=== PATIENT | female | born 1945 | race Caucasian/White ===

== ENCOUNTER 2021-01-09 10:00 | Outpatient (REF) | payer MEDICARE, SELFPAY ==
[2021-01-09 12:01] LABS: Alanine Aminotransferase 23 U/L (0-31); Albumin Level 4.3 g/dL (3.5-5.0); Alkaline Phosphatase 89 U/L (39-117); Anion Gap 14 (12-20); Aspartate Amino Transferase 19 U/L (5-31); Bilirubin Total 0.8 mg/dL (0.0-1.0); Blood Urea Nitrogen 14 mg/dL (9-16); Calcium 9.5 mg/dL (8.4-10.2); Carbon Dioxide 29 mmol/L (22-29); Chloride 103 mmol/L (96-108); Cholesterol 210 mg/dL; Estimated Glomerular Filt Rate > 60; Glucose Fasting 157 mg/dL (60-99); HDL Cholesterol 93 mg/dL; LDL Cholesterol Calculated 98 mg/dl; Potassium 4.5 mmol/L (3.3-5.1); Sodium 141 mmol/L (135-145); Triglycerides 97 mg/dL
[2021-01-09 12:16] LABS: Estimated Average Glucose 151 mg/dL; Hemoglobin A1c % 6.9 %
== END 2021-01-09 10:01 | disposition home or self-care (01) ==
LOC: HO.HMGCLDS 10:00
PROVIDERS: PCP Internal Medicine; Visit Provider Internal Medicine
DX: E11.9 Type 2 diabetes mellitus without complications (principal); E66.9 Obesity, unspecified; I10 Essential (primary) hypertension
CPT/HCPCS: 36415; 80053; 80061; 83036

== ENCOUNTER 2021-05-06 11:38 | Outpatient (REF) | payer MEDICARE, SELFPAY ==
[2021-05-06 14:10] LABS: Estimated Average Glucose 143 mg/dL; Hemoglobin A1c % 6.6 %
[2021-05-06 14:24] LABS: Alanine Aminotransferase 17 U/L (0-31); Albumin Level 4.3 g/dL (3.5-5.0); Alkaline Phosphatase 84 U/L (39-117); Anion Gap 17 (12-20); Aspartate Amino Transferase 18 U/L (5-31); Bilirubin Total 0.8 mg/dL (0.0-1.0); Blood Urea Nitrogen 13 mg/dL (9-16); Calcium 9.8 mg/dL (8.4-10.2); Carbon Dioxide 22 mmol/L (22-29); Chloride 106 mmol/L (96-108); Cholesterol 202 mg/dL; Estimated Glomerular Filt Rate > 60; Glucose Fasting 137 mg/dL (60-99); HDL Cholesterol 90 mg/dL; LDL Cholesterol Calculated 91 mg/dl; Potassium 4.3 mmol/L (3.3-5.1); Sodium 141 mmol/L (135-145); Total Protein 6.9 g/dL (6.5-8.0); Triglycerides 109 mg/dL
[2021-05-06 15:09] LABS: Creatinine Urine 113.12 mg/dL; Microalbum/Creatinine Ratio Ur 121.9 ug/mg cr
== END 2021-05-06 11:39 | disposition home or self-care (01) ==
LOC: HO.HMGCLDS 11:38
PROVIDERS: PCP Internal Medicine; Visit Provider Internal Medicine
DX: E11.9 Type 2 diabetes mellitus without complications (principal); E66.9 Obesity, unspecified
CPT/HCPCS: 36415; 80053; 80061; 82043; 83036

== ENCOUNTER 2021-06-06 08:38 | Outpatient (REF) | payer MEDICARE, SELFPAY ==
[2021-06-06 11:52] LABS: Glucose Urine UA NEG (NEG); Leukocyte Esterase Urine TRACE (NEG); Nitrite Urine NEG (NEG); PH 5.5 (5.0-8.0); Specific Gravity - Urine 1.015 (1.005-1.025); UACC Culture Trigger YES; Urine Blood 2+ (NEG); Urine Ketones NEG (NEG); Urine Protein TRACE MG/DL (NEG-TRACE)
[2021-06-06 12:03] LABS: Appearance Urine CLEAR; Color Urine YELLOW
[2021-06-06 12:32] LABS: Calcium Oxalate Crystals Urine TRACE /LPF; Renal Epithelial Cells Urine 1+ /LPF
== END 2021-06-06 08:39 | disposition home or self-care (01) ==
LOC: HO.HMGCLDS 08:38
PROVIDERS: PCP Internal Medicine; Visit Provider Internal Medicine
DX: R31.9 Hematuria, unspecified (principal)
CPT/HCPCS: 81001; 81003; 87086

== ENCOUNTER 2021-07-03 13:51 | Outpatient (REF) | payer MEDICARE, SELFPAY ==
--- NOTE | ~2021-07-03 | US_ITS ---
EXAMINATION: US RETROPERITONEAL COMPLETE (RENAL) CLINICAL INFORMATION: Hematuria without pain. COMPARISON: None TECHNIQUE: Real-time imaging of the kidneys and bladder. FINDINGS: RIGHT KIDNEY: 11.8 x 5.4 x 6.3 cm (SAG x AP x TRV). The kidney is normal in size, contour, and echogenicity. Renal cortical thickness is normal. There are a few punctate cortical echogenic foci the largest within the upper pole measuring 3 mm in diameter with the appearance of calculi. No hydronephrosis. LEFT KIDNEY: 10.9 x 4.7 x 4.3 cm (SAG x AP x TRV). The kidney is normal in size, contour, and echogenicity. Renal cortical thickness is normal. There is a staghorn calculus seen within the upper pole measuring approximately 2 cm x 1.7 cm x 2.0 cm in size. There is a simple appearing 3.2 x 3.7 x 5.0 cm midpole cyst. There is some caliectasis present.. BLADDER: Well distended and normal. A right ureteral jet was identified. No left ureteral jet was seen. There is a echogenic lesion about the left ureterovesical junction measuring 1.1 x 0.5 x 0.7 cm in size consistent with obstructing calculus. Prevoid bladder volume is 201 mL. Postvoid bladder volume is 17 mL. US/US retroperitoneal comp IMPRESSION: Bilateral nephrolithiasis with left staghorn calculus. Obstructing left ureteral vesicle junction calculus with mild caliectasis. Left renal cyst..
== END 2021-07-03 13:52 | disposition home or self-care (01) ==
LOC: HO.HMGCX 13:51
PROVIDERS: PCP Internal Medicine; Visit Provider Internal Medicine
DX: R31.9 Hematuria, unspecified (principal)
CPT/HCPCS: 76770

== ENCOUNTER 2021-07-18 12:35 | Outpatient (REF) | payer MEDICARE, SELFPAY ==
[2021-07-18 16:13] LABS: Urine Cytology See Pathology rpt
== END 2021-07-18 12:36 | disposition home or self-care (01) ==
LOC: HO.LNP 12:35
PROVIDERS: PCP Internal Medicine
DX: R31.9 Hematuria, unspecified (principal)
CPT/HCPCS: 88112; 99202

== ENCOUNTER 2021-07-24 14:05 | Outpatient (REF) | payer MEDICARE, SELFPAY ==
[2021-07-24 16:55] LABS: Blood Urea Nitrogen 11 mg/dL (9-16); Estimated Glomerular Filt Rate > 60
== END 2021-07-24 14:06 | disposition home or self-care (01) ==
LOC: HO.HMGCLDS 14:05
PROVIDERS: PCP Internal Medicine; Visit Provider Internal Medicine
DX: N85.8 Other specified noninflammatory disorders of uterus (principal)
CPT/HCPCS: 36415; 82565; 84520

== ENCOUNTER 2021-08-02 13:34 | Outpatient (REF) | payer MEDICARE, SELFPAY ==
--- NOTE | ~2021-08-02 | MR_ITS ---
EXAMINATION: MRI PELVIS WITH AND WITHOUT CONTRAST CLINICAL INFORMATION: Other specified noninflammatory disorders of the uterus. According to the patient, uterine bleeding starting in April. COMPARISON: Ultrasound 07/03/2021 TECHNIQUE: Multiple routine MRI sequences through the pelvis were obtained on a high-field 1.5 Trisha MRI before and after the uneventful administration of 10 mL of Gadavist gadolinium-based IV contrast. FINDINGS: UTERUS: Anteverted uterus has a normal configuration and measures 12 x 6.8 x 9.4 cm ([id number] x anterior-posterior x transverse). Normal-appearing endometrium is not seen. The uterus is essentially replaced by heterogeneous cystic and solid, enhancing central mass that expands the uterus, measures 9.3 x 6 x 8.6 cm extending from the fundus to the internal cervical loss. In addition, there are a few well-circumscribed dark T2 structures in the periphery of the uterus consistent with leiomyomata, for example a 1.4 cm suspected myoma at the posterior uterine fundus series 5 image 14/26 and a 7 mm myoma of the left posterior lower uterine segment. CERVIX: Incidentally noted nabothian cysts. VAGINA: Normal; no mass seen. RIGHT OVARY: The right ovary measures 2.7 x 1.8 x 2.0 cm. There are several T2 bright simple appearing cysts in the right ovary the largest measuring 1.4 cm, likely a benign finding that requires no imaging follow-up. LEFT OVARY: The normal-appearing left ovary measures 1.2 x 0.7 x 1.1 cm. No left adnexal mass KIDNEYS: 2 normally positioned kidneys are seen. There is atrophy of the left kidney with a 4 cm T2 bright structure that presumably represents the left mid renal cyst seen on prior ultrasound. Additional smaller bilateral renal cortical cysts are present. BLADDER: Urinary bladder normal. PELVIC FREE FLUID: No free fluid or ascites. LYMPH NODES: No pathologically enlarged lymph nodes. OSSEOUS STRUCTURES: No acute or suspicious osseous abnormalities. There is diverticulosis of the sigmoid colon without evidence of colitis or diverticulitis. Small bowel is nondilated. MR/MR pelvis wo/w con IMPRESSION: There is an abnormal appearance to the uterus concerning for endometrial malignancy in this patient with vaginal bleeding. Recommend gynecologic oncology consultation and endometrial biopsy. The report will be called to the ordering clinician by a [facility].
== END 2021-08-02 13:35 | disposition home or self-care (01) ==
LOC: HO.MRI 13:34
PROVIDERS: Visit Provider Internal Medicine
DX: N85.8 Other specified noninflammatory disorders of uterus (principal)
CPT/HCPCS: 72197; A9585

== ENCOUNTER 2021-08-05 13:15 | Outpatient (REF) | payer MEDICARE, SELFPAY ==
--- NOTE | ~2021-08-05 | CT_ITS ---
EXAMINATION: CT ABDOMEN AND PELVIS WITHOUT CONTRAST CLINICAL INFORMATION: Renal stone COMPARISON: Previous renal and bladder ultrasound June 2021 and pelvic MRI 08/02/2021 TECHNIQUE: Multidetector volumetric imaging was performed from the superior aspect of the liver through the pubic symphysis. Sagittal and coronal reformatted images were obtained on the technologist's workstation. This CT examination was performed using dose optimization techniques as appropriate, variously including the following: *Automated exposure control *Adjustment of mA and/or kV according to patient size (this includes techniques or standardized protocols for targeted exams where dose is matched to indication/reason for exam; i.e. extremities or head) *Use of iterative reconstruction technique DLP: 735 mGy-cm FINDINGS: LUNG BASES: There is 1.2 cm heterogeneous right lower lobe nodule. This has a 4 mm solid component, axial image 47 series 4.. LIVER, GALLBLADDER, AND BILIARY TREE: The liver is normal in size, shape, and attenuation. No focal hepatic lesion or biliary ductal dilatation is present. The gallbladder is unremarkable with no evidence of radiopaque gallstones, gallbladder wall thickening, or obvious pericholecystic inflammatory changes. PANCREAS: Unremarkable. SPLEEN: Unremarkable. ADRENAL GLANDS: Unremarkable. KIDNEYS AND URETERS: The left kidney is smaller than the right and there is left renal cortical thinning. There is a large 1 x 1.5 cm stone in the upper pole of the left kidney. There is mild left upper pole calyceal dilatation. There is question of a dilated left renal pelvis versus peripelvic cyst measuring 4 cm. The left ureter does not appear dilated. The left UVJ stone is no longer seen. The right kidney is normal appearing. BLADDER: Unremarkable. The left UVJ stone is no longer seen. GASTROINTESTINAL TRACT: There is diverticulosis of the colon. Small and large bowel is otherwise unremarkable. There is a small posterior fundal gastric diverticulum. ABDOMINAL WALL: There is a small umbilical hernia containing fat. LYMPH NODES: There are small retroperitoneal lymph nodes in the abdomen. No enlarged lymph nodes are seen. There is no ascites. VASCULAR: There is evidence of atherosclerotic disease. No aneurysm is seen. PELVIC VISCERA: Uterus is enlarged and heterogeneous appearing with multiple cystic areas. Appearance is again concerning for possible malignancy. The endometrium is not well-defined. The ovaries are unremarkable. OSSEOUS STRUCTURES: There are degenerative changes of the spine. There are degenerative changes at the hip joints, left greater than right. CT/CT abdomen pelvis wo con IMPRESSION: 1 x 1.5 cm stone in the upper pole of the left kidney. Question left hydronephrosis versus peripelvic cyst. The left ureter does not appear dilated. Left UVJ stone is no longer seen. Enlarged heterogeneous appearing uterus with multiple cystic areas. Appearance is again concerning for neoplasm. Diverticulosis of the colon. 1.2 cm heterogeneous right lower lobe nodule. Follow-up chest CT scan should be considered.
== END 2021-08-05 13:16 | disposition home or self-care (01) ==
LOC: HO.CT 13:15
PROVIDERS: PCP Internal Medicine
DX: N20.0 Calculus of kidney (principal)
CPT/HCPCS: 74176

== ENCOUNTER 2021-08-19 10:02 | Outpatient (REF) | payer MEDICARE, SELFPAY ==
[2021-08-19 11:35] LABS: Estimated Average Glucose 137 mg/dL; Hemoglobin A1c % 6.4 %
[2021-08-19 11:54] LABS: Alanine Aminotransferase 16 U/L (0-31); Albumin Level 4.1 g/dL (3.5-5.0); Alkaline Phosphatase 80 U/L (39-117); Anion Gap 16 (12-20); Aspartate Amino Transferase 16 U/L (5-31); Bilirubin Total 0.8 mg/dL (0.0-1.0); Blood Urea Nitrogen 13 mg/dL (9-16); Calcium 9.7 mg/dL (8.4-10.2); Carbon Dioxide 26 mmol/L (22-29); Chloride 105 mmol/L (96-108); Cholesterol 200 mg/dL; Estimated Glomerular Filt Rate > 60; Glucose Fasting 139 mg/dL (60-99); HDL Cholesterol 90 mg/dL; LDL Cholesterol Calculated 89 mg/dl; Potassium 4.7 mmol/L (3.3-5.1); Sodium 142 mmol/L (135-145); Total Protein 6.6 g/dL (6.5-8.0); Triglycerides 105 mg/dL
[2021-08-19 12:05] LABS: Creatinine Urine 55.02 mg/dL; Microalbum/Creatinine Ratio Ur 281.7 ug/mg cr
== END 2021-08-19 10:03 | disposition home or self-care (01) ==
LOC: HO.HMGCLDS 10:02
PROVIDERS: PCP Internal Medicine; Visit Provider Internal Medicine
DX: E11.9 Type 2 diabetes mellitus without complications (principal); I10 Essential (primary) hypertension
CPT/HCPCS: 36415; 80053; 80061; 82043; 83036

== ENCOUNTER 2021-09-05 15:10 | Outpatient (REF) | payer MEDICARE, SELFPAY | END 2021-09-05 15:11 | disposition home or self-care (01) | LOC: HO.LAB 15:10 | PROVIDERS: PCP Internal Medicine; Visit Provider Obstetrics & Gynecology | DX: C54.1 Malignant neoplasm of endometrium (principal); N84.1 Polyp of cervix uteri | CPT/HCPCS: 57500; 58100; 88305; 88341; 88342; 88360; 99202 ==

== ENCOUNTER 2021-09-09 12:38 | Outpatient (REF) | payer MEDICARE, SELFPAY ==
--- NOTE | ~2021-09-09 | CT_ITS ---
EXAMINATION: CT CHEST WITHOUT CONTRAST CLINICAL INFORMATION: Solitary pulmonary nodule COMPARISON: None TECHNIQUE: Multidetector volumetric CT imaging of the chest was done. Axial MIP volume rendering provided. Sagittal and coronal reformatted images were obtained. This CT examination was performed using dose optimization techniques as appropriate, variously including the following: *Automated exposure control *Adjustment of mA and/or kV according to patient size (this includes techniques or standardized protocols for targeted exams where dose is matched to indication/reason for exam; i.e. extremities or head) *Use of iterative reconstruction technique DLP: 211 mGy-cm FINDINGS: CHAPLAIN RESIDENT: Unremarkable. LUNGS: There is a 5 mm nodule right lower lobe axial image 390/7. There is adjacent groundglass attenuation within the entire nodule measuring 1.2 cm. It is best visualized on axial image 400/7. No additional nodules seen. Minimal atelectasis scarring seen in the right middle lobe. MEDIASTINUM: The thyroid lobes are symmetrical in both the central trachea and the bronchi widely patent. The heart size and the great vessels are normal caliber. There are coronary artery calcifications present. No pericardial effusion seen. No abnormal mediastinal lymph nodes. There are coronary artery calcifications. PLEURA: There is no pleural effusion. No pleural mass or thickening. AXILLA: No lymphadenopathy. UPPER ABDOMEN: Visualized liver, spleen, pancreas and bilateral adrenal glands unremarkable. There is a 1.8 cm calcified stone left kidney pelvis. OSSEOUS STRUCTURES: No lytic or sclerotic process seen. There is mild spondylosis mid dorsal spine. CT/CT chest wo con IMPRESSION: Stable right lower lobe pulmonary nodule. 1.8 cm left renal pelvic calcified stone without hydronephrosis. Partially exophytic left renal stone.
== END 2021-09-09 12:39 | disposition home or self-care (01) ==
LOC: HO.CT 12:38
PROVIDERS: Visit Provider Internal Medicine
DX: R91.1 Solitary pulmonary nodule (principal)
CPT/HCPCS: 71250

== ENCOUNTER → 2021-09-11 11:47 | Outpatient (BNVA) | payer MEDICARE, SELFPAY | PROVIDERS: PCP Internal Medicine; Visit Provider Obstetrics & Gynecology ==

== ENCOUNTER → 2021-09-16 15:33 | Outpatient (BNVA) | payer MEDICARE, SELFPAY | PROVIDERS: PCP Internal Medicine; Visit Provider Obstetrics & Gynecology | DX: N95.9 Unspecified menopausal and perimenopausal disorder (principal); C64.9 Malignant neoplasm of unspecified kidney, except renal pelvis; E11.9 Type 2 diabetes mellitus without complications; I10 Essential (primary) hypertension; Z88.1 Allergy status to other antibiotic agents; Z88.0 Allergy status to penicillin; Z88.8 Allergy status to other drugs, medicaments and biological substances | CPT/HCPCS: Q3014 ==

== ENCOUNTER 2021-12-13 09:27 | Outpatient (REF) | payer MEDICARE, SELFPAY ==
[2021-12-13 11:38] LABS: Estimated Average Glucose 128 mg/dL; Hemoglobin A1c % 6.1 %
[2021-12-13 11:42] LABS: Hematocrit 42.4 % (37.0-47.0); Mean Corpuscular Hemoglobin 30.5 pg (27.0-33.0); Mean Corpuscular Volume 92.4 fL (80.0-98.0); Mean Platelet Volume 10.4 fL (9.4-12.3); Platelet Count 265 X10*3/uL (160-400); Red Blood Count 4.59 X10*6/uL (4.20-5.50); Red Cell Distribution Width 13.8 % (11.0-16.0); White Blood Count 6.3 X10*3/uL (4.8-10.8)
[2021-12-13 12:05] LABS: Alanine Aminotransferase 16 U/L (0-31); Alkaline Phosphatase 90 U/L (39-117); Anion Gap 14 (12-20); Aspartate Amino Transferase 18 U/L (5-31); Bilirubin Total 0.5 mg/dL (0.0-1.0); Blood Urea Nitrogen 11 mg/dL (9-16); Calcium 9.6 mg/dL (8.4-10.2); Carbon Dioxide 25 mmol/L (22-29); Chloride 109 mmol/L (96-108); Estimated Glomerular Filt Rate > 60; Glucose Fasting 114 mg/dL (60-99); Potassium 4.2 mmol/L (3.3-5.1); Sodium 144 mmol/L (135-145); Total Protein 6.7 g/dL (6.5-8.0)
== END 2021-12-13 09:28 | disposition home or self-care (01) ==
LOC: HO.HMGCLDS 09:27
PROVIDERS: PCP Internal Medicine; Visit Provider Internal Medicine
DX: E11.9 Type 2 diabetes mellitus without complications (principal); I10 Essential (primary) hypertension
CPT/HCPCS: 36415; 80053; 83036; 85027

== ENCOUNTER 2022-07-21 10:05 | Outpatient (REF) | payer MEDICARE, SELFPAY ==
[2022-07-21 11:59] LABS: Alanine Aminotransferase 16 U/L (0-31); Albumin Level 4.4 g/dL (3.5-5.0); Alkaline Phosphatase 97 U/L (39-117); Anion Gap 17 (12-20); Aspartate Amino Transferase 14 U/L (5-31); Bilirubin Total 0.7 mg/dL (0.0-1.0); Blood Urea Nitrogen 19 mg/dL (9-16); Calcium 9.5 mg/dL (8.4-10.2); Carbon Dioxide 25 mmol/L (22-29); Chloride 104 mmol/L (96-108); Cholesterol 200 mg/dL; Estimated Glomerular Filt Rate > 60; Glucose Fasting 166 mg/dL (60-99); HDL Cholesterol 85 mg/dL; LDL Cholesterol Calculated 95 mg/dl; Potassium 4.7 mmol/L (3.3-5.1); Sodium 141 mmol/L (135-145); Total Protein 7.2 g/dL (6.5-8.0); Triglycerides 100 mg/dL
[2022-07-21 12:12] LABS: Creatinine Urine 39.83 mg/dL; Microalbum/Creatinine Ratio Ur 311.3 ug/mg cr
[2022-07-21 12:24] LABS: Estimated Average Glucose 148 mg/dL; Hemoglobin A1c % 6.8 %
== END 2022-07-21 10:06 | disposition home or self-care (01) ==
LOC: HO.HMGCLDS 10:05
PROVIDERS: PCP Internal Medicine; Visit Provider Internal Medicine
DX: C64.9 Malignant neoplasm of unspecified kidney, except renal pelvis (principal); E11.9 Type 2 diabetes mellitus without complications; I10 Essential (primary) hypertension
CPT/HCPCS: 36415; 80053; 80061; 82043; 83036

== ENCOUNTER 2023-02-16 10:15 | Outpatient (REF) | payer MEDICARE, SELFPAY ==
[2023-02-16 12:31] LABS: Estimated Average Glucose 148 mg/dL; Hemoglobin A1c % 6.8 %
[2023-02-16 12:35] LABS: Alanine Aminotransferase 17 U/L (0-31); Albumin Level 4.2 g/dL (3.5-5.0); Alkaline Phosphatase 90 U/L (39-117); Anion Gap 14 (12-20); Aspartate Amino Transferase 16 U/L (5-31); Bilirubin Total 0.8 mg/dL (0.0-1.0); Blood Urea Nitrogen 15 mg/dL (9-16); Calcium 9.8 mg/dL (8.4-10.2); Carbon Dioxide 29 mmol/L (22-29); Chloride 105 mmol/L (96-108); Cholesterol 204 mg/dL; Estimated Glomerular Filt Rate > 60; Glucose Fasting 151 mg/dL (60-99); HDL Cholesterol 84 mg/dL; LDL Cholesterol Calculated 105 mg/dl; Potassium 4.9 mmol/L (3.3-5.1); Sodium 143 mmol/L (135-145); Total Protein 6.6 g/dL (6.5-8.0); Triglycerides 76 mg/dL
== END 2023-02-16 10:16 | disposition home or self-care (01) ==
LOC: HO.HMGCLDS 10:15
PROVIDERS: PCP Internal Medicine; Visit Provider Internal Medicine
DX: E11.9 Type 2 diabetes mellitus without complications (principal); I10 Essential (primary) hypertension; E66.9 Obesity, unspecified
CPT/HCPCS: 36415; 80053; 80061; 83036

== ENCOUNTER 2023-07-08 13:02 | Outpatient (REF) | payer MEDICARE, SELFPAY ==
[2023-07-08 15:59] LABS: MANUAL DIFF FLAG NO
[2023-07-08 16:11] LABS: Basophils Absolute Auto 0.1 X10*3/uL (0.0-0.2); Basophils Percent Auto 0.9 % (0-2); Eosinophils Absolute Auto 0.2 X10*3/uL (0.0-0.4); Eosinophils Percent Auto 2.8 % (0-4); Hemoglobin 14.9 g/dl (12.0-16.0); Imm Gran Abs Auto 0.03 X10*3/uL (0.00-0.03); Imm Gran Pct Auto 0.5 % (0.0-0.4); Lymphocytes Absolute Auto 1.7 X10*3/uL (1.2-4.9); Lymphocytes Percent Auto 26.9 % (20-40); Mean Corpuscular HGB Conc 33.9 g/dl (31.0-35.0); Mean Corpuscular Volume 91.7 fL (80.0-98.0); Mean Platelet Volume 10.9 fL (9.4-12.3); Monocytes Absolute Auto 0.4 X10*3/uL (0.1-1.2); Monocytes Percent Auto 6.6 % (2-11); Neutrophils Percent Auto 62.3 % (45-73); Platelet Count 260 X10*3/uL (160-400); Red Cell Distribution Width 12.9 % (11.0-16.0); White Blood Count 6.4 X10*3/uL (4.8-10.8)
[2023-07-08 16:16] LABS: Estimated Average Glucose 140 mg/dL; Hemoglobin A1c % 6.5 %
[2023-07-08 16:28] LABS: Alanine Aminotransferase 17 U/L (0-31); Albumin Level 4.1 g/dL (3.5-5.0); Alkaline Phosphatase 91 U/L (39-117); Anion Gap 14 (12-20); Aspartate Amino Transferase 16 U/L (5-31); Bilirubin Total 0.6 mg/dL (0.0-1.0); Blood Urea Nitrogen 12 mg/dL (9-16); Calcium 9.5 mg/dL (8.4-10.2); Carbon Dioxide 25 mmol/L (22-29); Chloride 107 mmol/L (96-108); Cholesterol 185 mg/dL; Estimated Glomerular Filt Rate > 60; Glucose Fasting 149 mg/dL (60-99); HDL Cholesterol 80 mg/dL; LDL Cholesterol Calculated 85 mg/dl; Sodium 142 mmol/L (135-145); Total Protein 7.1 g/dL (6.5-8.0); Triglycerides 101 mg/dL
[2023-07-08 16:37] LABS: TSH reflex Free T4 1.35 uIU/mL (0.32-4.0)
[2023-07-08 16:44] LABS: Creatinine Urine 105.07 mg/dL; Microalbum/Creatinine Ratio Ur 295.9 ug/mg cr
== END 2023-07-08 13:03 | disposition home or self-care (01) ==
LOC: HO.HMGCLDS 13:02
PROVIDERS: PCP Internal Medicine; Visit Provider Internal Medicine
DX: E11.9 Type 2 diabetes mellitus without complications (principal); I10 Essential (primary) hypertension; N20.0 Calculus of kidney
CPT/HCPCS: 36415; 80053; 80061; 82043; 83036; 84443; 85025

== ENCOUNTER 2023-07-15 07:55 | Outpatient (AMB) | payer MEDICARE, SELFPAY ==
--- NOTE | 2023-07-15 07:59 | MHC.PC.OV ---
Vital Signs 07/15/23 08:00 Height 5 ft 5 in Weight 236 lb BMI 39.3 BP 116/74 Blood Pressure Location Rt radial Position Sitting Pulse 92 Pulse Source Pulse Oximeter Pulse Oximetry (%) 98 Oxygen Delivery Method Room Air Intake Visit Reasons: PHY Intake Note: Pt is here today for PE. Allergies penicillin V Allergy (Unknown, Verified 07/15/23 08:02) unknown oxycodone Allergy (Verified 07/15/23 08:02) nausea dizziness lisinopril Adverse Reaction (Unknown, Verified 07/15/23 08:02) increased urination Medication List - Last Reconciled 07/15/23 by Kae Ravi MD amlodipine 10 mg PO DAILY blood sugar diagnostic one touch ultra 1 QD blood sugar diagnostic one touch ultra test strips QD #100, RF#3 flu vacc [id number](65yr up)-PF mL IM halobetasol propionate 0.05% 1 appl topical DAILY insulin glargine 16 units (0.16 mL) subcut BEDTIME metformin 1,000 mg PO BID miscellaneous medical supply 1 ea miscellaneous .QD olmesartan 5 mg PO DAILY pen needle, diabetic (BD Ultra-Fine Short Pen Needle) 1 ea topical DAILY 90 days Tobacco use date assessed: 07/15/23 Fall risk assessment: No Falls in past year Last assessed Fall Risk: 07/15/23 Dental Screening Dental Screen Date: 07/15/23 Did you have a dental visit in the last 12 months?: Yes Did you have a dental problem in the last 6 months where you did not have access to dental care?: No Was dental information given to patient?: Patient has dentist HPI PHY HPI Details Patient presents for physical. She has been exercising every day walking up 3 flights the stairs daily. [facility] Medical History Diabetes Eye exam, routine Hematuria HTN (hypertension) Lung nodule Nephrolithiasis Obese Uterine mass Surgical History History of ankle surgery Family History Father No problems noted. Mother HTN (hypertension) Mental health disorder Social History [facility] Alcohol intake: current Alcohol intake frequency: 0-2 drinks per day Alcohol type: wine Patient Tobacco Use Status: Former Tobacco user (24 years ago) e-Cigarette/Vaping Use: Never Used Second Hand Smoke Exposure: No service: No Current occupational status: retired Current occupational exposures/hazards: No Cognitive needs: No Hearing needs: No Vision needs: Yes Questionnaire PHQ-9 Over the last 2 weeks, how often have you been bothered by any of the following problems? 1. Little interest or pleasure in doing things: not at all 2. Feeling down, depressed, or hopeless: not at all 3. Trouble falling or staying asleep, or sleeping too much: not at all 4. Feeling tired or having little energy: not at all 5. Poor appetite or overeating: not at all 6. Feeling bad about yourself - or that you are a failure or have let yourself or your family down: not at all 7. Trouble concentrating on things, such as reading the newspaper or watching television: not at all 8. Moving or speaking so slowly that other people could have noticed. Or the opposite - being so fidgety or restless that you have been moving around a lot more than usual: not at all 9. Thoughts that you would be better off or of hurting yourself in some way: not at all Total score: 0 Depression Screening Interpretation: Negative Source: Developed by Drs. Sanford Mendoza, Bhumika Jacques, Vince Bartholomew and colleagues, with an educational nida from [employer]. Thrive Questionnaire Date Thrive assessed: 07/15/23 I am a: Patient What is your living situation today?: I have a steady place to live Within the past 12 months, did the food you bought not last and you didn't have the money to get more?: Never true Within the past 12 months, did you worry whether your food would run out before you got money to buy more?: Never true Do you have trouble paying for medicines?: No Do you have trouble getting transportation to medical appointments?: No Do you have trouble paying your heating and electricity bill?: No Do you have trouble taking care of your child, family member or friend?: No Do you have trouble with day-to-day activities such as bathing, preparing meals, shopping, managing finances, etc.?: No Are you currently unemployed and looking for a job?: No Are you interested in more education?: No Please select the resources that you would like help with: None Currently or been in a relationship where the following occur: no concerns reported AUDIT C Alcohol Use Questionnaire (AUDIT-C) 1. How often do you have a drink containing alcohol?: Monthly or less 2. How many drinks containing alcohol do you have on a typical day when you are drinking?: 1 or 2 3. How often do you have six or more drinks on one occasion?: Never Total Score: 1 NEDA-7 AMB Questionnaire NEDA-7 Date NEDA - 7 assessed: 07/15/23 Feeling nervous, anxious, or on edge: 0 = Not at all Not being able to stop or control worryin = Not at all Worrying too much about different things: 0 = Not at all Trouble relaxin = Not at all Being so restless that it is hard to sit still: 0 = Not at all Becoming easily annoyed or irritable: 0 = Not at all Feeling afraid as if something awful might happen: 0 = Not at all Total NEDA-7 score (0-4 normal; 5-9 mild; 10-14 moderate; 15-21 severe): 0 Source: Developed by Drs. Sanford Mendoza, Bhumika Jacques, Vince Bartholomew and colleagues, with an educational nida from [employer]. Review of Systems Const All systems reviewed & are unremarkable except as noted in HPI and below Reports no additional complaints Eyes Reports no additional complaints ENT Reports no additional complaints Card Reports no additional complaints Resp Reports no additional complaints GI Reports no additional complaints Reports no additional complaints Physical exam (Primary Care) Vital Signs: Last Vital Signs Pulse 92 07/15/23 08:00 BP 116/74 07/15/23 08:00 Pulse Ox 98 07/15/23 08:00 Oxygen Delivery Method Room Air 07/15/23 08:00 BMI result Body Mass Index 39.3 Tobacco/Smoking Status: Tobacco use Status Tobacco use date assessed 07/15/23 07/15/23 08:06 Patient Tobacco Use Status Former Tobacco user (24 07/15/23 08:06 years ago) e-Cigarette/Vaping Use Never Used 07/15/23 08:06 PHQ-9: PHQ-9 Score PHQ-9: Total score 0 07/15/23 08:41 Depression Screening Interpretation: Negative Thrive Assessment: Date of Thrive Assessment Date Thrive assessed 07/15/23 07/15/23 08:06 Currently or been in a relationship where the following occur: no concerns reported Const General: no acute distress HENMT Head: Yes normal to inspection Ears: hearing grossly normal bilaterally Face and sinus: Yes normal facial exam Eyes General: appearance normal, both eyes and all related structures Neck Neck: Yes no lymphadenopathy and Yes supple Resp Effort & Inspection: normal respiratory effort Auscultation: clear to auscultation bilaterally Cardio Rhythm: regular rhythm Heart sounds: S1 normal heart sound present and S2 normal heart sound present GI Inspection: Yes normal to inspection Palpation (GI): Soft to palpation Percussion: Yes normal to percussion Auscultation: normal bowel sounds Extrem Other: Diabetic foot exam skin is intact, monofilament and vibration sensation intact bilaterally. There is small callus on the right plantar aspect of 1st toe General: Yes no clubbing, cyanosis or edema Immunizations pneumoc 20-shaq conj-dip cr(PF) Performing Provider: Kae Ravi MD Administered by: SIGIFREDO Lopez on 07/15/23 08:48 Dose Route Admin Location Lot Number Expiration Date NDC Vice President Of Marketing 0.5 mL IM Left Deltoid [id number] 09/22/24 [id number] [employer] VIS Given Date VIS Provided VIS Publication Date 07/15/23 Single Vaccine 21 Eligibility Eligibility Date Funding Source Not [facility] Eligible 07/15/23 Private Assessment and Plan Assessment & Plan (1) Diabetes: Code(s): E11.9 - Type 2 diabetes mellitus without complications Plan: A1c is 6.5, continue current treatment increase physical activity weight loss discussed with the patient follow-up in 6 months with a fasting labs before (2) HTN (hypertension): Code(s): I10 - Essential (primary) hypertension Plan: Continue current medications (3) Annual physical exam: Code(s): Z00.00 - Encounter for general adult medical examination without abnormal findings Plan: Well-balanced diet and regular physical activity weight loss discussed with the patient. she will return in 6 months with a fasting labs before Orders: Orders Comprehensive Sweetser. Panel Fast 6 Months E11.9 - Type 2 diabetes mellitus without complications, I10 - Essential (primary) hypertension Lipid Panel 6 Months E11.9 - Type 2 diabetes mellitus without complications, I10 - Essential (primary) hypertension Complete Blood Count Auto Diff 6 Months E11.9 - Type 2 diabetes mellitus without complications, I10 - Essential (primary) hypertension Hemoglobin A1c 6 Months E11.9 - Type 2 diabetes mellitus without complications, I10 - Essential (primary) hypertension Microalbumin, Random (w Creat) 6 Months E11.9 - Type 2 diabetes mellitus without complications, I10 - Essential (primary) hypertension Pneumococcal 20 Immunization Today Z23 - Encounter for immunization Medications: New miscellaneous medical supply diabetic shoes 1 ea miscellaneous .qd 1 ea 0RF E11.9 - Type 2 diabetes mellitus without complications, L84 - Corns and callosities Refilled miscellaneous medical supply diabetic shoes Dx: IDDM, neuropathy 1 ea miscellaneous .QD 1 ea 0RF Coding Level of Care Code Est Pt Prev Care >65y(90227) Diagnoses Diabetes E11.9 HTN (hypertension) I10 Annual physical exam Z00.00
[2023-07-15 08:00] VITALS: BP 116/74; PULSE 92; O2SAT 98; BMI 39.3
== END 2023-07-15 08:59 | disposition home or self-care (01) ==
PROVIDERS: Visit Provider Internal Medicine
DX: Z00.00 Encounter for general adult medical examination without abnormal findings (principal); E11.9 Type 2 diabetes mellitus without complications; I10 Essential (primary) hypertension; Z23 Encounter for immunization
CPT/HCPCS: 90471; 90677; 99397

== ENCOUNTER → 2024-01-13 09:34 | Outpatient (AMB) | payer MEDICARE, SELFPAY ==
[2024-01-13 09:40] VITALS: BP 136/68; PULSE 102; O2SAT 97; BMI 38.3
--- NOTE | 2024-01-13 09:40 | A.OFFPC_ITS ---
Vital Signs 01/13/24 09:40 Height 5 ft 5 in Weight 230 lb BMI 38.3 BP 136/68 Blood Pressure Location Lt brachial Position Sitting Pulse 102 H Pulse Source Pulse Oximeter Pulse Oximetry (%) 97 Oxygen Delivery Method Room Air Intake Visit Reasons: 6 month follow up Intake Note: Pt is here today for 6 months follow up visit. Allergies penicillin V Allergy (Unknown, Verified 01/13/24 09:41) unknown oxycodone Allergy (Verified 01/13/24 09:41) nausea dizziness alendronate sodium [From Fosamax] Adverse Reaction (Intermediate, Verified 0 01/13/24 09:52) Weakness, jelly legs lisinopril Adverse Reaction (Unknown, Verified 01/13/24 09:41) increased urination Medication List - Last Reconciled 01/13/24 by Kae Ravi MD amlodipine 10 mg PO DAILY blood sugar diagnostic ([employer] Ultra Test strips) Test blood sugar once a day flu vacc to2520-98(65yr up)-PF mL IM halobetasol propionate 0.05% 1 appl topical DAILY insulin glargine 16 units (0.16 mL) subcut BEDTIME metformin 1,000 mg PO BID miscellaneous medical supply 1 ea miscellaneous .qd miscellaneous medical supply 1 ea miscellaneous .QD olmesartan 5 mg PO DAILY pen needle, diabetic (BD Ultra-Fine Short Pen Needle) 1 ea topical DAILY 90 days Tobacco use date assessed: 07/15/23 Fall risk assessment: No Falls in past year Last assessed Fall Risk: 01/13/24 Dental Screening Dental Screen Date: 01/13/24 Did you have a dental visit in the last 12 months?: Yes Did you have a dental problem in the last 6 months where you did not have access to dental care?: No Was dental information given to patient?: Patient has dentist HPI 6 month follow up HPI Details Pt presents for f/u DM 2 and hypertension, stable on meds. Patient reports fasting blood glucose between 95-120. Patient has been exercising regularly [facility] Medical History (Updated 01/13/24 @ 10:36 by Kae Ravi MD) Nephrolithiasis Lung nodule Hematuria Obese Eye exam, routine Diabetes HTN (hypertension) Surgical History History of ankle surgery Family History Father No problems noted. Mother HTN (hypertension) Mental health disorder Social History Housing: Condominium Alcohol intake: current Alcohol intake frequency: 0-2 drinks per day Alcohol type: wine Patient Tobacco Use Status: Former Tobacco user (24 years ago) e-Cigarette/Vaping Use: Never Used Second Hand Smoke Exposure: No service: No Current occupational status: retired Current occupational exposures/hazards: No Cognitive needs: No Hearing needs: No Vision needs: Yes Questionnaire PHQ-9 Over the last 2 weeks, how often have you been bothered by any of the following problems? 1. Little interest or pleasure in doing things: not at all 2. Feeling down, depressed, or hopeless: not at all 3. Trouble falling or staying asleep, or sleeping too much: not at all 4. Feeling tired or having little energy: not at all 5. Poor appetite or overeating: not at all 6. Feeling bad about yourself - or that you are a failure or have let yourself or your family down: not at all 7. Trouble concentrating on things, such as reading the newspaper or watching television: not at all 8. Moving or speaking so slowly that other people could have noticed. Or the opposite - being so fidgety or restless that you have been moving around a lot more than usual: not at all 9. Thoughts that you would be better off or of hurting yourself in some way: not at all Total score: 0 Depression Screening Interpretation: Negative Depression Screening Done: Yes Source: Developed by Drs. Sanford Mendoza, Bhumika Jacques, Vince Bartholomew and colleagues, with an educational nida from [employer]. Thrive Questionnaire Date Thrive assessed: 01/13/24 I am a: Patient What is your living situation today?: I have a steady place to live Within the past 12 months, did the food you bought not last and you didn't have the money to get more?: Never true Within the past 12 months, did you worry whether your food would run out before you got money to buy more?: Never true Do you have trouble paying for medicines?: No Do you have trouble getting transportation to medical appointments?: No Do you have trouble paying your heating and electricity bill?: No Do you have trouble taking care of your child, family member or friend?: No Do you have trouble with day-to-day activities such as bathing, preparing meals, shopping, managing finances, etc.?: No Are you currently unemployed and looking for a job?: No Are you interested in more education?: No Please select the resources that you would like help with: None Currently or been in a relationship where the following occur: no concerns reported THRIVE Score: 0 AUDIT C Alcohol Use Questionnaire (AUDIT-C) 1. How often do you have a drink containing alcohol?: 2-4 times a month 2. How many drinks containing alcohol do you have on a typical day when you are drinking?: 1 or 2 3. How often do you have six or more drinks on one occasion?: Never Total Score: 2 NEDA-7 AMB Questionnaire NEDA-7 Date NEDA - 7 assessed: 01/13/24 Feeling nervous, anxious, or on edge: 0 = Not at all Not being able to stop or control worryin = Not at all Worrying too much about different things: 0 = Not at all Trouble relaxin = Not at all Being so restless that it is hard to sit still: 0 = Not at all Becoming easily annoyed or irritable: 0 = Not at all Feeling afraid as if something awful might happen: 0 = Not at all Total NEDA-7 score (0-4 normal; 5-9 mild; 10-14 moderate; 15-21 severe): 0 Source: Developed by Drs. Sanford Mendoza, Bhumika Jacques, Vince Bartholomew and colleagues, with an educational nida from [employer]. Review of Systems Const All systems reviewed & are unremarkable except as noted in HPI and below Reports no additional complaints Eyes Reports no additional complaints ENT Reports no additional complaints Card Reports no additional complaints Resp Reports no additional complaints GI Reports no additional complaints Reports no additional complaints Physical exam (Primary Care) Vital Signs: Last Vital Signs Pulse 102 H 01/13/24 09:40 BP 136/68 01/13/24 09:40 Pulse Ox 97 01/13/24 09:40 Oxygen Delivery Method Room Air 01/13/24 09:40 BMI result Body Mass Index 38.3 Tobacco/Smoking Status: Tobacco use Status Tobacco use date assessed 07/15/23 01/13/24 09:41 Patient Tobacco Use Status Former Tobacco user (01/13/24 09:41 years ago) e-Cigarette/Vaping Use Never Used 01/13/24 09:41 PHQ-9: PHQ-9 Score PHQ-9: Total score 0 01/13/24 09:56 Depression Screening Interpretation: Negative Thrive Assessment: Date of Thrive Assessment Date Thrive assessed 01/13/24 01/13/24 09:56 Currently or been in a relationship where the following occur: no concerns reported Const General: no acute distress HENMT Head: Yes normal to inspection Face and sinus: Yes normal facial exam Eyes General: appearance normal, both eyes and all related structures Neck Neck: Yes supple Resp Effort & Inspection: normal respiratory effort Auscultation: clear to auscultation bilaterally Cardio Rhythm: regular rhythm Heart sounds: S1 normal heart sound present and S2 normal heart sound present GI Inspection: Yes normal to inspection Palpation (GI): Soft to palpation Percussion: Yes normal to percussion Auscultation: normal bowel sounds Assessment and Plan Assessment & Plan (1) Adenosarcoma: Comment: uterine ca, 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 F/U [facility] Code(s): C64.9 - Malignant neoplasm of unspecified kidney, except renal pelvis Plan: PATIENT FOLLOW-UP WITH [facility] D[facility]ENS[facility] SPECIFICATION INSPECTOR ANNUALLY (2) Diabetes: Comment: A1C 6.5 07/15 Code(s): E11.9 - Type 2 diabetes mellitus without complications Plan: ADA diet increase physical activity weight loss discussed with the patient she will return in 1 month with a fasting labs before including A1c (3) Obese: Code(s): E66.9 - Obesity, unspecified Plan: Weight loss discussed with the patient (4) HTN (hypertension): Code(s): I10 - Essential (primary) hypertension Plan: Continue current medications low-sodium diet increase physical activity discussed. Orders: Orders Comprehensive [place]. Panel Fast 1 Month E11.9 - Type 2 diabetes mellitus without complications, I10 - Essential (primary) hypertension Lipid Panel 1 Month E11.9 - Type 2 diabetes mellitus without complications, I10 - Essential (primary) hypertension UA w Microscopic 1 Month E11.9 - Type 2 diabetes mellitus without complications, I10 - Essential (primary) hypertension Hemoglobin A1c 1 Month E11.9 - Type 2 diabetes mellitus without complications, I 10 - Essential (primary) hypertension Microalbumin, Random (w Creat) 1 Month E11.9 - Type 2 diabetes mellitus without complications, I10 - Essential (primary) hypertension Coding Level of Care Code Est Pt Level 4 (40172) Diagnoses Adenosarcoma C64.9 Diabetes E11.9 Obese E66.9 HTN (hypertension) I10
== END ==
PROVIDERS: PCP Internal Medicine; Visit Provider Internal Medicine
DX: E11.9 Type 2 diabetes mellitus without complications (principal); C64.9 Malignant neoplasm of unspecified kidney, except renal pelvis; Z68.38 Body mass index [BMI] 38.0-38.9, adult; E66.9 Obesity, unspecified; I10 Essential (primary) hypertension
CPT/HCPCS: 99214

== ENCOUNTER 2024-07-13 09:51 | Outpatient (REF) | payer MEDICARE, SELFPAY ==
[2024-07-13 13:35] LABS: Appearance Urine Cloudy; Color Urine Yellow; Glucose Urine UA Negative (Negative); Leukocyte Esterase Urine Moderate (2+) (Negative); Nitrite Urine Negative (Negative); PH 5.5 (5.0-9.0); Specific Gravity - Urine 1.015 (1.005-1.025); UMIC TRIGGER UA YES; Urine Blood Negative (Negative); Urine Ketones Negative (Negative); Urine Protein Trace mg/dL (Neg-Trace)
[2024-07-13 13:41] LABS: Estimated Average Glucose 154 mg/dL
[2024-07-13 13:56] LABS: Alanine Aminotransferase 16 U/L (0-31); Albumin Level 4.1 g/dL (3.5-5.0); Alkaline Phosphatase 88 U/L (39-117); Anion Gap 12 (12-20); Aspartate Amino Transferase 15 U/L (5-31); Bilirubin Total 0.6 mg/dL (0.0-1.0); Blood Urea Nitrogen 17 mg/dL (9-16); Carbon Dioxide 28 mmol/L (22-29); Chloride 107 mmol/L (96-108); Cholesterol 183 mg/dL (<200); Estimated Glomerular Filt Rate > 60; Glucose Fasting 150 mg/dL (60-99); HDL Cholesterol 77 mg/dL (>40); LDL Cholesterol Calculated 89 mg/dL (<100); Potassium 4.8 mmol/L (3.3-5.1); Sodium 142 mmol/L (135-145); Total Protein 6.9 g/dL (6.5-8.0); Triglycerides 88 mg/dL (<150)
[2024-07-13 14:07] LABS: Bacteria Urine None Seen (None Seen); Calcium Oxalate Crystals Urine Present; Hyaline Casts Urine 0-2 /LPF (0-2); RBC Urine 0-2 /HPF (0-2); WBC Urine 21-50 /HPF (0-5)
[2024-07-13 14:33] LABS: Creatinine Urine 64.55 mg/dL; Microalbum/Creatinine Ratio Ur 167.3 ug/mg cr (<30)
== END 2024-07-13 09:52 | disposition home or self-care (01) ==
LOC: HO.HMGCLDS 09:51
PROVIDERS: PCP Internal Medicine; Visit Provider Internal Medicine
DX: I10 Essential (primary) hypertension (principal); E11.9 Type 2 diabetes mellitus without complications
CPT/HCPCS: 36415; 80053; 80061; 81001; 82043; 82570; 83036

== ENCOUNTER 2024-07-18 08:02 | Outpatient (AMB) | payer MEDICARE, SELFPAY ==
[2024-07-18 08:07] VITALS: BP 134/74; PULSE 97; O2SAT 97; BMI 38.8
--- NOTE | 2024-07-18 08:07 | A.OFFPC_ITS ---
Vital Signs 07/18/24 08:07 Height 5 ft 5 in Weight 233 lb BMI 38.8 BP 134/74 Blood Pressure Location Lt brachial Position Sitting Pulse 97 Pulse Source Pulse Oximeter Pulse Oximetry (%) 97 Oxygen Delivery Method Room Air Intake Visit Reasons: Annual PE - see comments Intake Note: Pt is here today for PE. Allergies penicillin V Allergy (Unknown, Verified 07/18/24 08:08) unknown oxycodone Allergy (Verified 07/18/24 08:08) nausea dizziness alendronate sodium [From Fosamax] Adverse Reaction (Intermediate, Verified 07/18/24 08:08) Weakness, jelly legs lisinopril Adverse Reaction (Unknown, Verified 07/18/24 08:08) increased urination Tobacco use date assessed: 07/18/24 Fall risk assessment: 1 Fall in past year Last assessed Fall Risk: 07/18/24 Dental Screening Dental Screen Date: 01/13/24 HPI Annual PE - see comments HPI Details Pt presents for PE. PFSH Medical History Nephrolithiasis Lung nodule Hematuria Obese Eye exam, routine Diabetes HTN (hypertension) Surgical History History of ankle surgery Family History Father No problems noted. Mother HTN (hypertension) Mental health disorder Social History Housing: Condominium Alcohol intake: current Alcohol intake frequency: 0-2 drinks per day Alcohol type: wine Patient Tobacco Use Status: Former Tobacco user (24 years ago) e-Cigarette/Vaping Use: Never Used Second Hand Smoke Exposure: No service: No Current occupational status: retired Current occupational exposures/hazards: No Cognitive needs: No Hearing needs: No Vision needs: Yes Questionnaire Thrive Questionnaire Date Thrive assessed: 07/15/24 I am a: Patient What is your living situation today?: I have a steady place to live Within the past 12 months, did the food you bought not last and you didn't have the money to get more?: Never true Within the past 12 months, did you worry whether your food would run out before you got money to buy more?: Never true Do you have trouble paying for medicines?: No Do you have trouble getting transportation to medical appointments?: No Do you have trouble paying your heating and electricity bill?: No Do you have trouble taking care of your child, family member or friend?: No Do you have trouble with day-to-day activities such as bathing, preparing meals, shopping, managing finances, etc.?: No Are you currently unemployed and looking for a job?: No Are you interested in more education?: No Please select the resources that you would like help with: None Currently or been in a relationship where the following occur: No concerns reported THRIVE Score: 0 AUDIT C Alcohol Use Questionnaire (AUDIT-C) 1. How often do you have a drink containing alcohol?: 4 or more times a week 2. How many drinks containing alcohol do you have on a typical day when you are drinking?: 1 or 2 3. How often do you have six or more drinks on one occasion?: Never Total Score: 4 NEDA-7 AMB Questionnaire NEDA-7 Date NEDA - 7 assessed: 01/13/24 Feeling nervous, anxious, or on edge: 0 = Not at all Not being able to stop or control worryin = Not at all Worrying too much about different things: 0 = Not at all Trouble relaxin = Not at all Being so restless that it is hard to sit still: 0 = Not at all Becoming easily annoyed or irritable: 0 = Not at all Feeling afraid as if something awful might happen: 0 = Not at all Total NEDA-7 score (0-4 normal; 5-9 mild; 10-14 moderate; 15-21 severe): 0 Source: Developed by Drs. Sanford Mendoza, Bhumika Jacques, Vince Bartholomew and colleagues, with an educational nida from [employer]. Review of Systems Const All systems reviewed & are unremarkable except as noted in HPI and below Reports no additional complaints Eyes Reports no additional complaints ENT Reports no additional complaints Card Reports no additional complaints Resp Reports no additional complaints GI Reports no additional complaints Reports no additional complaints Physical exam (Primary Care) Vital Signs: Last Vital Signs Pulse 97 07/18/24 08:07 BP 134/74 07/18/24 08:07 Pulse Ox 97 07/18/24 08:07 Oxygen Delivery Method Room Air 07/18/24 08:07 BMI result Body Mass Index 38.8 Tobacco/Smoking Status: Tobacco use Status Tobacco use date assessed 07/18/24 07/18/24 08:11 Patient Tobacco Use Status Former Tobacco user (07/18/24 08:11 years ago) e-Cigarette/Vaping Use Never Used 07/18/24 08:11 Thrive Assessment: Date of Thrive Assessment Date Thrive assessed 07/15/24 07/18/24 08:11 Currently or been in a relationship where the following occur: No concerns reported Const General: no acute distress HENMT Head: Yes normal to inspection Ears: hearing grossly normal bilaterally General nose exam: Normal external nose present Face and sinus: Yes normal facial exam Throat: Yes posterior oropharynx normal Eyes General: appearance normal, both eyes and all related structures Neck Neck: Yes no lymphadenopathy and Yes supple Resp Effort & Inspection: normal respiratory effort Auscultation: clear to auscultation bilaterally Cardio Rhythm: regular rhythm Heart sounds: S1 normal heart sound present and S2 normal heart sound present GI Inspection: Yes normal to inspection Palpation (GI): Soft to palpation Percussion: Yes normal to percussion Auscultation: normal bowel sounds Assessment and Plan Assessment & Plan (1) HTN (hypertension): Code(s): I10 - Essential (primary) hypertension Plan: decrease Amlodipine to 5 mg QD because of LE swelling in the warm weather and increase Olmesartan to 10 mg for microalbuminuria, check BMP in 1-2 weeks, f/u 1 month (2) Diabetes: Comment: A1C 6.5 07/15 Code(s): E11.9 - Type 2 diabetes mellitus without complications Plan: A1C is 7.0, ADA diet, exercise, weight loss discussed (3) Lung nodule: Comment: RLL 1.[address] /2020 Code(s): R91.1 - Solitary pulmonary nodule Plan: repeat CT of chest (4) Nephrolithiasis: Comment: L renal, CT 06/2021, F/U UROLOGY Code(s): N20.0 - Calculus of kidney Plan: repeat renal CT Orders: Orders CT abdomen pelvis w IV con Today N20.0 - Calculus of kidney Basic Metabolic Panel 3 Weeks E11.9 - Type 2 diabetes mellitus without complications, I10 - Essential (primary) hypertension CT chest w IV con Today N20.0 - Calculus of kidney, R91.1 - Solitary pulmonary nodule Medications: New amlodipine 5 mg PO DAILY 90 tabs 0RF Changed From olmesartan 5 mg PO DAILY 100 tabs 3RF To olmesartan 10 mg (2 x 5 mg) PO DAILY 180 tabs 3RF Discontinued amlodipine Discontinued Reason: Doctor's Order 10 mg PO DAILY 100 tabs 3RF Coding Level of Care Code Est Pt Level 4 (17038) Diagnoses HTN (hypertension) I10 Diabetes E11.9 Lung nodule R91.1 Nephrolithiasis N20.0
== END 2024-07-18 08:44 | disposition home or self-care (01) ==
PROVIDERS: PCP Internal Medicine; Visit Provider Internal Medicine
DX: I10 Essential (primary) hypertension (principal); E11.9 Type 2 diabetes mellitus without complications; R91.1 Solitary pulmonary nodule; N20.0 Calculus of kidney
CPT/HCPCS: 99214

== ENCOUNTER 2024-08-10 11:43 | Outpatient (REF) | payer MEDICARE, SELFPAY ==
[2024-08-10 13:50] LABS: Anion Gap 13 (12-20); Blood Urea Nitrogen 14 mg/dL (9-16); Calcium 10.1 mg/dL (8.4-10.2); Carbon Dioxide 29 mmol/L (22-29); Chloride 104 mmol/L (96-108); Estimated Glomerular Filt Rate > 60; Glucose Random 215 mg/dL (60-115); Potassium 4.8 mmol/L (3.3-5.1); Sodium 141 mmol/L (135-145)
== END 2024-08-10 11:44 | disposition home or self-care (01) ==
LOC: HO.HMGCLDS 11:43
PROVIDERS: PCP Internal Medicine; Visit Provider Internal Medicine
DX: I10 Essential (primary) hypertension (principal); E11.9 Type 2 diabetes mellitus without complications
CPT/HCPCS: 36415; 80048

== ENCOUNTER 2024-08-17 08:55 | Outpatient (AMB) | payer MEDICARE, SELFPAY ==
[2024-08-17 08:56] VITALS: BP 130/78; PULSE 101; O2SAT 96; BMI 38.4
--- NOTE | 2024-08-17 08:56 | MHC.PC.OV ---
Vital Signs 08/17/24 08:56 Height 5 ft 5 in Weight 231 lb BMI 38.4 BP 130/78 Blood Pressure Location Rt brachial Position Sitting Pulse 101 H Pulse Source Pulse Oximeter Pulse Oximetry (%) 96 Oxygen Delivery Method Room Air Intake Visit Reasons: 1 month Intake Note: Pt is here today for 1 month follow up visit. Allergies penicillin V Allergy (Unknown, Verified 08/17/24 09:11) unknown oxycodone Allergy (Verified 08/17/24 09:11) nausea dizziness alendronate sodium [From Fosamax] Adverse Reaction (Intermediate, Verified 08/17/24 09:11) Weakness, jelly legs lisinopril Adverse Reaction (Unknown, Verified 08/17/24 09:11) increased urination Medication List - Last Reconciled 08/17/24 by Kae Ravi MD amlodipine 5 mg PO DAILY blood sugar diagnostic ([employer] Ultra Test strips) Test blood sugar once a day flu vacc [id number](65yr up)-PF mL IM halobetasol propionate 0.05% 1 appl topical DAILY insulin glargine 16 units (0.16 mL) subcut BEDTIME metformin 1,000 mg PO BID miscellaneous medical supply 1 ea miscellaneous .qd miscellaneous medical supply 1 ea miscellaneous .QD olmesartan 10 mg (2 x 5 mg) PO DAILY pen needle, diabetic (BD Ultra-Fine Short Pen Needle) 1 ea topical DAILY 90 days Tobacco use date assessed: 07/18/24 Dental Screening Dental Screen Date: 01/13/24 HPI 1 month HPI Details Patient presents for the follow-up of type 2 diabetes hypertension hyperlipidemia PFSH Medical History (Updated 08/17/24 @ 15:37 by Kae Ravi MD) Nephrolithiasis Lung nodule Hematuria Obese Eye exam, routine Diabetes HTN (hypertension) Surgical History History of ankle surgery Family History Father No problems noted. Mother HTN (hypertension) Mental health disorder Social History Housing: Condominium Alcohol intake: current Alcohol intake frequency: 0-2 drinks per day Alcohol type: wine Patient Tobacco Use Status: Former Tobacco user (24 years ago) e-Cigarette/Vaping Use: Never Used Second Hand Smoke Exposure: No service: No Current occupational status: retired Current occupational exposures/hazards: No Cognitive needs: No Hearing needs: No Vision needs: Yes Questionnaire Thrive Questionnaire Date Thrive assessed: 07/15/24 I am a: Patient What is your living situation today?: I have a steady place to live Within the past 12 months, did the food you bought not last and you didn't have the money to get more?: Never true Within the past 12 months, did you worry whether your food would run out before you got money to buy more?: Never true Do you have trouble paying for medicines?: No Do you have trouble getting transportation to medical appointments?: No Do you have trouble paying your heating and electricity bill?: No Do you have trouble taking care of your child, family member or friend?: No Do you have trouble with day-to-day activities such as bathing, preparing meals, shopping, managing finances, etc.?: No Are you currently unemployed and looking for a job?: No Are you interested in more education?: No Please select the resources that you would like help with: None Currently or been in a relationship where the following occur: No concerns reported THRIVE Score: 0 NEDA-7 AMB Questionnaire NEDA-7 Date NEDA - 7 assessed: 01/13/24 Source: Developed by Drs. Sanford Mendoza, Bhumika Jacques, Vince Bartholomew and colleagues, with an educational nida from [employer] Review of Systems Const All systems reviewed & are unremarkable except as noted in HPI and below Eyes Reports no additional complaints ENT Reports no additional complaints Card Reports no additional complaints Resp Reports no additional complaints GI Reports no additional complaints Reports no additional complaints Physical exam (Primary Care) Vital Signs: Last Vital Signs Pulse 101 H 08/17/24 08:56 Pulse Ox 96 08/17/24 08:56 Oxygen Delivery Method Room Air 08/17/24 08:56 BMI result Body Mass Index 38.4 Tobacco/Smoking Status: Tobacco use Status Tobacco use date assessed 07/18/24 08/17/24 08:56 Patient Tobacco Use Status Former Tobacco user (08/17/24 08:56 years ago) e-Cigarette/Vaping Use Never Used 08/17/24 08:56 Thrive Assessment: Date of Thrive Assessment Date Thrive assessed 07/15/24 08/17/24 08:56 Currently or been in a relationship where the following occur: No concerns reported Const General: no acute distress HENMT Head: Yes normal to inspection Eyes General: appearance normal, both eyes and all related structures Neck Neck: Yes supple Resp Effort & Inspection: normal respiratory effort Auscultation: clear to auscultation bilaterally Cardio Rhythm: regular rhythm Heart sounds: S1 normal heart sound present and S2 normal heart sound present GI Inspection: Yes normal to inspection Palpation (GI): Soft to palpation Percussion: Yes normal to percussion Auscultation: normal bowel sounds Assessment and Plan Assessment & Plan (1) HTN (hypertension): Code(s): I10 - Essential (primary) hypertension Plan: Increase olmesartan to 50 mg check basic metabolic panel in 2 weeks. Continue amlodipine increase physical activity weight loss discussed with the patient (2) Diabetes: Comment: A1C 6.5 07/15 Code(s): E11.9 - Type 2 diabetes mellitus without complications Plan: Continue ADA diet current medications (3) Nephrolithiasis: Comment: L renal, CT 06/2021, F/U UROLOGY Code(s): N20.0 - Calculus of kidney Plan: Follow-up with urology (4) Lung nodule: Comment: RLL 1.[address] , stable, patient declined repeat CT 07/2024 Code(s): R91.1 - Solitary pulmonary nodule Plan: Patient declined repeat CT of the chest Orders: Orders Comprehensive [place]. Panel Fast 6 Weeks E11.9 - Type 2 diabetes mellitus without complications, I10 - Essential (primary) hypertension Hemoglobin A1c 6 Weeks E11.9 - Type 2 diabetes mellitus without complications, I10 - Essential (primary) hypertension Basic Metabolic Panel 2 Weeks E11.9 - Type 2 diabetes mellitus without complications, I10 - Essential (primary) hypertension Medications: Changed From olmesartan 10 mg (2 x 5 mg) PO DAILY 180 tabs 3RF To olmesartan 15 mg (3 x 5 mg) PO DAILY 180 tabs 3RF Coding Level of Care Code Est Pt Level 4 (99627) Diagnoses HTN (hypertension) I10 Diabetes E11.9 Nephrolithiasis N20.0 Lung nodule R91.1
== END 2024-08-17 09:51 | disposition home or self-care (01) ==
PROVIDERS: PCP Internal Medicine; Visit Provider Internal Medicine
DX: I10 Essential (primary) hypertension (principal); E11.9 Type 2 diabetes mellitus without complications; N20.0 Calculus of kidney; R91.1 Solitary pulmonary nodule

== ENCOUNTER → 2024-08-17 08:55 | Outpatient (BNVA) | payer MEDICARE, SELFPAY | PROVIDERS: PCP Internal Medicine; Visit Provider Internal Medicine | DX: I10 Essential (primary) hypertension (principal); E11.9 Type 2 diabetes mellitus without complications; N20.0 Calculus of kidney; R91.1 Solitary pulmonary nodule | CPT/HCPCS: 99212 ==

== ENCOUNTER 2024-10-17 09:24 | Outpatient (REF) | payer MEDICARE, SELFPAY ==
[2024-10-17 13:41] LABS: Estimated Average Glucose 151 mg/dL; Hemoglobin A1C 196.1584 umol/L; Hemoglobin A1c % 6.9 % (<6.0); Total Hemoglobin (HGBA1C) 3789.4509 umol/L
[2024-10-17 14:04] LABS: Alanine Aminotransferase 18 U/L (0-31); Albumin Level 4.1 g/dL (3.5-5.0); Alkaline Phosphatase 95 U/L (39-117); Anion Gap 15 (12-20); Aspartate Amino Transferase 20 U/L (5-31); Bilirubin Total 0.6 mg/dL (0.0-1.0); Blood Urea Nitrogen 13 mg/dL (9-16); Calcium 9.8 mg/dL (8.4-10.2); Carbon Dioxide 26 mmol/L (22-29); Chloride 103 mmol/L (96-108); Estimated Glomerular Filt Rate > 60; Glucose Fasting 177 mg/dL (60-99); Potassium 4.8 mmol/L (3.3-5.1); Sodium 139 mmol/L (135-145); Total Protein 6.7 g/dL (6.5-8.0)
== END 2024-10-17 09:25 | disposition home or self-care (01) ==
LOC: HO.HMGCLDS 09:24
PROVIDERS: PCP Internal Medicine; Visit Provider Internal Medicine
DX: I10 Essential (primary) hypertension (principal); E11.9 Type 2 diabetes mellitus without complications
CPT/HCPCS: 36415; 80053; 83036

== ENCOUNTER 2024-10-24 09:00 | Outpatient (AMB) | payer MEDICARE, SELFPAY ==
[2024-10-24 09:03] VITALS: BP 136/74; PULSE 102; O2SAT 96; BMI 38.8
--- NOTE | 2024-10-24 09:03 | MHC.PC.OV ---
Vital Signs 10/24/24 09:03 Height 5 ft 5 in Weight 233 lb BMI 38.8 BP 136/74 Blood Pressure Location Lt brachial Position Sitting Pulse 102 H Pulse Source Pulse Oximeter Pulse Oximetry (%) 96 Oxygen Delivery Method Room Air Intake Visit Reasons: 2 month - see comments Intake Note: Pt is here today for 2 months follow up visit. Allergies penicillin V Allergy (Unknown, Verified 10/24/24 09:05) unknown oxycodone Allergy (Verified 10/24/24 09:05) nausea dizziness alendronate sodium [From Fosamax] Adverse Reaction (Intermediate, Verified 10/24/24 09:05) Weakness, jelly legs lisinopril Adverse Reaction (Unknown, Verified 10/24/24 09:05) increased urination Medication List - Last Reconciled 10/24/24 by Kae Ravi MD amlodipine 5 mg PO DAILY blood sugar diagnostic ([employer] Ultra Test strips) Test blood sugar once a day flu vacc [id number](65yr up)-PF mL IM halobetasol propionate 0.05% 1 appl topical DAILY insulin glargine 16 units (0.16 mL) subcut BEDTIME metformin 1,000 mg PO BID miscellaneous medical supply 1 ea miscellaneous .qd miscellaneous medical supply 1 ea miscellaneous .QD olmesartan 15 mg (3 x 5 mg) PO DAILY pen needle, diabetic (BD Ultra-Fine Short Pen Needle) 1 ea topical DAILY 90 days semaglutide (Ozempic) 0.25 mg (0.368 mL) subcut QWEEK Tobacco use date assessed: 10/24/24 Dental Screening Dental Screen Date: 01/13/24 HPI 2 month - see comments HPI Details Pt presents for f/u DM 2, HTN, stable on meds. Patient reports high blood glucose readings in the mornings up to 160. She denies any change in her diet but has not been physically active [facility] Medical History Nephrolithiasis Lung nodule Hematuria Obese Eye exam, routine Diabetes HTN (hypertension) Surgical History History of ankle surgery Family History Father No problems noted. Mother HTN (hypertension) Mental health disorder Social History Housing: Condominium Alcohol intake: current Alcohol intake frequency: 0-2 drinks per day Alcohol type: wine Patient Tobacco Use Status: Former Tobacco user (24 years ago) e-Cigarette/Vaping Use: Never Used Second Hand Smoke Exposure: No service: No Current occupational status: retired Current occupational exposures/hazards: No Cognitive needs: No Hearing needs: No Vision needs: Yes Questionnaire PHQ-9 Over the last 2 weeks, how often have you been bothered by any of the following problems? 1. Little interest or pleasure in doing things: not at all 2. Feeling down, depressed, or hopeless: not at all 3. Trouble falling or staying asleep, or sleeping too much: not at all 4. Feeling tired or having little energy: nearly every day 5. Poor appetite or overeating: not at all 6. Feeling bad about yourself - or that you are a failure or have let yourself or your family down: not at all 7. Trouble concentrating on things, such as reading the newspaper or watching television: not at all 8. Moving or speaking so slowly that other people could have noticed. Or the opposite - being so fidgety or restless that you have been moving around a lot more than usual: not at all 9. Thoughts that you would be better off or of hurting yourself in some way: not at all Total score: 3 Depression Screening Interpretation: Negative Depression Screening Done: Yes 20058 - PHQ-9 Billing: Yes Source: Developed by Drs. Sanford Mendoza, Bhumika Jacques, Vince Bartholomew and colleagues, with an educational nida from [employer]. Thrive Questionnaire Date Thrive assessed: 07/15/24 I am a: Patient What is your living situation today?: I have a steady place to live Within the past 12 months, did the food you bought not last and you didn't have the money to get more?: Never true Within the past 12 months, did you worry whether your food would run out before you got money to buy more?: Never true Do you have trouble paying for medicines?: No Do you have trouble getting transportation to medical appointments?: No Do you have trouble paying your heating and electricity bill?: No Do you have trouble taking care of your child, family member or friend?: No Do you have trouble with day-to-day activities such as bathing, preparing meals, shopping, managing finances, etc.?: No Are you currently unemployed and looking for a job?: No Are you interested in more education?: No Please select the resources that you would like help with: None Currently or been in a relationship where the following occur: No concerns reported THRIVE Score: 0 NEDA-7 AMB Questionnaire NEDA-7 Date NEDA - 7 assessed: 01/13/24 Source: Developed by Drs. Sanford Mendoza, Bhumika Jacques, Vince Bartholomew and colleagues, with an educational nida from [employer]. Review of Systems Const All systems reviewed & are unremarkable except as noted in HPI and below Eyes Reports no additional complaints ENT Reports no additional complaints Card Reports no additional complaints Resp Reports no additional complaints GI Reports no additional complaints Reports no additional complaints Physical exam (Primary Care) Vital Signs: Last Vital Signs Pulse 102 H 10/24/24 09:03 BP 136/74 10/24/24 09:03 Pulse Ox 96 10/24/24 09:03 Oxygen Delivery Method Room Air 10/24/24 09:03 BMI result Body Mass Index 38.8 Tobacco/Smoking Status: Tobacco use Status Tobacco use date assessed 10/24/24 10/24/24 09:08 Patient Tobacco Use Status Former Tobacco user (10/24/24 09:08 years ago) e-Cigarette/Vaping Use Never Used 10/24/24 09:08 PHQ-9: PHQ-9 Score PHQ-9: Total score 3 10/24/24 09:08 Depression Screening Interpretation: Negative Thrive Assessment: Date of Thrive Assessment Date Thrive assessed 07/15/24 10/24/24 09:08 Currently or been in a relationship where the following occur: No concerns reported Const General: no acute distress HENMT Head: Yes normal to inspection Ears: hearing grossly normal bilaterally Face and sinus: Yes normal facial exam Throat: Yes posterior oropharynx normal Eyes General: appearance normal, both eyes and all related structures Neck Neck: Yes no lymphadenopathy and Yes supple Resp Effort & Inspection: normal respiratory effort Auscultation: clear to auscultation bilaterally Cardio Rhythm: regular rhythm Heart sounds: S1 normal heart sound present and S2 normal heart sound present GI Inspection: Yes normal to inspection Palpation (GI): Soft to palpation Auscultation: normal bowel sounds Coding Level of Care Code Est Pt Level 4 (19491) Diagnoses HTN (hypertension) I10 Diabetes E11.9 Additional Codes PHQ-9 - 20721 - PHQ-9 Billing: Yes ([id number]) Assessment & Plan Assessment & Plan (1) HTN (hypertension): Code(s): I10 - Essential (primary) hypertension Category: Medical Plan: Continue current medications (2) Diabetes: Comment: A1C 6.5 07/15 Code(s): E11.9 - Type 2 diabetes mellitus without complications Category: Medical Plan: A1c is 6.9, ADA diet increase physical activity weight loss discussed with the patient Ozempic 0.25 mg weekly will be added to insulin and metformin to decrease risk of complications of diabetes including coronary artery disease, [place], CVA. Follow-up in 3 months with a fasting labs before Orders: Orders Hemoglobin A1c 3 Months E11.9 - Type 2 diabetes mellitus without complications, I10 - Essential (primary) hypertension Comprehensive [place]. Panel Fast 3 Months E11.9 - Type 2 diabetes mellitus without complications, I10 - Essential (primary) hypertension Lipid Panel 3 Months E11.9 - Type 2 diabetes mellitus without complications, I10 - Essential (primary) hypertension Microalbumin, Random (w Creat) 3 Months E11.9 - Type 2 diabetes mellitus without complications, I10 - Essential (primary) hypertension Complete Blood Count Auto Diff 3 Months E11.9 - Type 2 diabetes mellitus without complications, I10 - Essential (primary) hypertension Medications: New semaglutide (Ozempic) 0.25 mg (0.368 mL) subcut QWEEK 3 mL 2RF Changed From insulin glargine 16 units (0.16 mL) subcut BEDTIME 15 mL 3RF To insulin glargine 20 units (0.2 mL) subcut BEDTIME 15 mL 3RF
== END 2024-10-24 09:32 | disposition home or self-care (01) ==
PROVIDERS: PCP Internal Medicine; Visit Provider Internal Medicine
DX: I10 Essential (primary) hypertension (principal); E11.9 Type 2 diabetes mellitus without complications

== ENCOUNTER → 2024-10-24 09:00 | Outpatient (BNVA) | payer MEDICARE, SELFPAY | PROVIDERS: PCP Internal Medicine; Visit Provider Internal Medicine | DX: I10 Essential (primary) hypertension (principal); E11.9 Type 2 diabetes mellitus without complications | CPT/HCPCS: 96127; 99212 ==

== ENCOUNTER 2025-01-18 10:40 | Outpatient (REF) | payer MEDICARE, SELFPAY ==
--- OUTSIDE RECORDS SUMMARY | 2025-01-18 13:13 | XMS_ITS | Patient Health Record ---
Author Organization [facility] Address [address] [place] [address] Care Team Providers [employer] Name Role Phone Kae Ravi Primary Care Provider Luiz e Allergies Allergen (clinical drug ingredient) Drug/Non Drug Allergy documented on EMR Reaction Allergy Type Onset Date Status Substance with penicillin structure and antibacterial mechanism of action (substance) Penicillins Unknown Drug Allergy Active Reason For Referral No Information Medications Medication SIG (Take, Route, Frequency, Duration) Notes Start Date End Date Status Olmesartan Medoxomil 5 MG 1 tablet Orally Once a day Active Insulin Glargine 100 UNIT/ML as directed Subcutaneous Act roya Halobetasol Propionate 0.05 % 1 application Externally Once a day Active metFORMIN HCl 1000 MG 1 tablet Orally tw ice a day Active amLODIPine Besylate 5 MG 1 tablet Orally Once a day Active Ibuprofen 600 MG 1 tablet with food o r milk as needed Orally two times a day for 30 days Active Problems Problem Type SNOMED Code ICD Code Onset Dates Problem Status W/U Status Risk Notes Problem [id number] Equinus deformity of foot (M21.6X9) Active confirmed Plan Of Treatment Pending Test Test Name Order Date X ray : Foot, left 3v 04/03/2021 Insurance Providers Payer Name Payer Address Payer Phone Subscriber Number Group Number Insured Name Patient Relationship to Insured Coverage Start Date Coverage End Date [facility] [address] [place] [phone] [id number] Munira Calvo Self - patient is the insured Medical (General) History Medical History History ICD Code Hypertension Diabetes mellitus treated with oral medi cation HLD (hyperlipidemia)
[2025-01-18 13:39] LABS: MANUAL DIFF FLAG NO
[2025-01-18 13:50] LABS: Basophils Absolute Auto 0.1 X10*3/uL (0.0-0.2); Eosinophils Absolute Auto 0.2 X10*3/uL (0.0-0.4); Eosinophils Percent Auto 2.5 % (0-4); Estimated Average Glucose 140 mg/dL; Hematocrit 46.4 % (37.0-47.0); Hemoglobin 15.2 g/dl (12.0-16.0); Hemoglobin A1c % 6.5 % (<6.0); Imm Gran Abs Auto 0.04 X10*3/uL (0.00-0.03); Imm Gran Pct Auto 0.6 % (0.0-0.4); Lymphocytes Absolute Auto 1.9 X10*3/uL (1.2-4.9); Mean Corpuscular HGB Conc 32.8 g/dl (31.0-35.0); Mean Corpuscular Hemoglobin 30.2 pg (27.0-33.0); Mean Corpuscular Volume 92.2 fL (80.0-98.0); Mean Platelet Volume 10.8 fL (9.4-12.3); Monocytes Absolute Auto 0.5 X10*3/uL (0.1-1.2); Monocytes Percent Auto 6.8 % (2-11); Neutrophils Absolute Auto 4.2 x10*3/uL (2.0-8.3); Neutrophils Percent Auto 61.1 % (45-73); Platelet Count 260 X10*3/uL (160-400); Red Blood Count 5.03 X10*6/uL (4.20-5.50); Red Cell Distribution Width 12.9 % (11.0-16.0); Total Hemoglobin (HGBA1C) 3930.9079 umol/L; White Blood Count 6.8 X10*3/uL (4.8-10.8)
[2025-01-18 14:17] LABS: Microalbum/Creatinine Ratio Ur 147.4 ug/mg cr (<30)
[2025-01-18 14:27] LABS: Alanine Aminotransferase 21 U/L (0-31); Albumin Level 4.2 g/dL (3.5-5.0); Alkaline Phosphatase 88 U/L (39-117); Anion Gap 13 (12-20); Aspartate Amino Transferase 20 U/L (5-31); Bilirubin Total 0.6 mg/dL (0.0-1.0); Blood Urea Nitrogen 13 mg/dL (9-16); Calcium 9.8 mg/dL (8.4-10.2); Carbon Dioxide 26 mmol/L (22-29); Chloride 107 mmol/L (96-108); Cholesterol 179 mg/dL (<200); Estimated Glomerular Filt Rate > 60; Glucose Fasting 135 mg/dL (60-99); HDL Cholesterol 72 mg/dL (>40); LDL Cholesterol Calculated 83 mg/dL (<100); Potassium 4.1 mmol/L (3.3-5.1); Sodium 142 mmol/L (135-145); Total Protein 7.4 g/dL (6.5-8.0); Triglycerides 121 mg/dL (<150)
== END 2025-01-18 10:41 | disposition home or self-care (01) ==
LOC: HO.HMGCLDS 10:40
PROVIDERS: PCP Internal Medicine; Visit Provider Internal Medicine
DX: I10 Essential (primary) hypertension (principal); E11.9 Type 2 diabetes mellitus without complications
CPT/HCPCS: 36415; 80053; 80061; 82043; 82570; 83036; 85025

== ENCOUNTER 2025-01-25 09:20 | Outpatient (AMB) | payer MEDICARE, SELFPAY ==
[2025-01-25 09:22] VITALS: BP 124/66; PULSE 77; RESP 20; TEMP 36.7; O2SAT 96; BMI 37.4
--- NOTE | 2025-01-25 09:22 | MHC.PC.OV ---
Vital Signs 01/25/25 09:22 Height 5 ft 5 in Weight 225 lb BMI 37.4 BP 124/66 Blood Pressure Location Lt brachial Position Sitting Respiration 20 Pulse 77 Pulse Source Pulse Oximeter Temp 98.1 F Temp Source Oral Pulse Oximetry (%) 96 Oxygen Delivery Method Room Air Intake Visit Reasons: 3 months Intake Note: Pt is here today for 3 months follow up visit. Allergies penicillin V Allergy (Unknown, Verified 01/25/25 09:25) unknown oxycodone Allergy (Verified 01/25/25 09:25) nausea dizziness alendronate sodium [From Fosamax] Adverse Reaction (Intermediate, Verified 01/25/25 09:25) Weakness, jelly legs lisinopril Adverse Reaction (Unknown, Verified 01/25/25 09:25) increased urination Medication List - Last Reconciled 01/25/25 by Kae Ravi MD amlodipine 5 mg PO DAILY blood sugar diagnostic ([employer] Ultra Test strips) Test blood sugar once a day flu vacc [id number](65yr up)-PF mL IM halobetasol propionate 0.05% 1 appl topical DAILY insulin glargine 20 units (0.2 mL) subcut BEDTIME metformin 1,000 mg PO BID miscellaneous medical supply 1 ea miscellaneous .qd miscellaneous medical supply 1 ea miscellaneous .QD olmesartan 5 mg PO DAILY pen needle, diabetic (BD Ultra-Fine Short Pen Needle) 1 ea topical DAILY 90 days semaglutide (Ozempic) 0.5 mg (0.736 mL) subcut QWEEK Tobacco use date assessed: 01/25/25 Fall risk assessment: No Falls in past year Last assessed Fall Risk: 01/25/25 Dental Screening Dental Screen Date: 01/25/25 Did you have a dental visit in the last 12 months?: Yes Did you have a dental problem in the last 6 months where you did not have access to dental care?: No Was dental information given to patient?: Patient has dentist HPI 3 months HPI Details Patient presents for the follow-up of type 2 diabetes hypertension hyperlipidemia. She lost 10 lb on Ozempic and has been tolerating well. Patient has been physically active exercising at home but reports some dyspnea on exertion when walking up the stairs. She denies chest pain shortness or breath or palpitations. Patient feels anxious coming for the appointments. PFSH Medical History Nephrolithiasis Lung nodule Hematuria Obese Eye exam, routine Diabetes HTN (hypertension) Surgical History History of ankle surgery Family History Father No problems noted. Mother HTN (hypertension) Mental health disorder Social History Housing: [facility] Alcohol intake: current Alcohol intake frequency: 0-2 drinks per day Alcohol type: wine Patient Tobacco Use Status: Former Tobacco user (24 years ago) e-Cigarette/Vaping Use: Never Used Second Hand Smoke Exposure: No service: No Current occupational status: retired Current occupational exposures/hazards: No Cognitive needs: No Hearing needs: No Vision needs: Yes Questionnaire PHQ-9 Over the last 2 weeks, how often have you been bothered by any of the following problems? 1. Little interest or pleasure in doing things: not at all 2. Feeling down, depressed, or hopeless: not at all 3. Trouble falling or staying asleep, or sleeping too much: not at all 4. Feeling tired or having little energy: nearly every day 5. Poor appetite or overeating: not at all 6. Feeling bad about yourself - or that you are a failure or have let yourself or your family down: not at all 7. Trouble concentrating on things, such as reading the newspaper or watching television: not at all 8. Moving or speaking so slowly that other people could have noticed. Or the opposite - being so fidgety or restless that you have been moving around a lot more than usual: not at all 9. Thoughts that you would be better off or of hurting yourself in some way: not at all Total score: 3 Depression Screening Interpretation: Negative Depression Screening Done: Yes 59966 - PHQ-9 Billing: Yes Source: Developed by Drs. Sanford Mendoza, Bhumika Jacques, Vince Bartholomew and colleagues, with an educational nida from [employer]. Thrive Questionnaire Date Thrive assessed: 01/25/25 I am a: Patient What is your living situation today?: I have a steady place to live Within the past 12 months, did the food you bought not last and you didn't have the money to get more?: Never true Within the past 12 months, did you worry whether your food would run out before you got money to buy more?: Never true Do you have trouble paying for medicines?: No Do you have trouble getting transportation to medical appointments?: No Do you have trouble paying your heating and electricity bill?: No Do you have trouble taking care of your child, family member or friend?: No Do you have trouble with day-to-day activities such as bathing, preparing meals, shopping, managing finances, etc.?: No Are you currently unemployed and looking for a job?: No Are you interested in more education?: No Please select the resources that you would like help with: None Currently or been in a relationship where the following occur: No concerns reported THRIVE Score: 0 AUDIT C Alcohol Use Questionnaire (AUDIT-C) 1. How often do you have a drink containing alcohol?: 4 or more times a week 2. How many drinks containing alcohol do you have on a typical day when you are drinking?: 1 or 2 3. How often do you have six or more drinks on one occasion?: Never Total Score: 4 NEDA-7 AMB Questionnaire NEDA-7 Date NEDA - 7 assessed: 01/25/25 Feeling nervous, anxious, or on edge: 0 = Not at all Not being able to stop or control worryin = Not at all Worrying too much about different things: 0 = Not at all Trouble relaxin = Not at all Being so restless that it is hard to sit still: 0 = Not at all Becoming easily annoyed or irritable: 0 = Not at all Feeling afraid as if something awful might happen: 0 = Not at all Total NEDA-7 score (0-4 normal; 5-9 mild; 10-14 moderate; 15-21 severe): 0 Source: Developed by Drs. Sanford Mendoza, Bhumika Jacques, Vince Bartholomew and colleagues, with an educational nida from [employer]. NEDA-7 Assessment Billing NEDA-7 Assessment Tool: NEDA-7 Assessment 26459 Review of Systems Const All systems reviewed & are unremarkable except as noted in HPI and below Eyes Reports no additional complaints ENT Reports no additional complaints Card Reports no additional complaints Resp Reports no additional complaints GI Reports no additional complaints Reports no additional complaints Physical exam (Primary Care) Vital Signs: Last Vital Signs Temp 98.1 F 01/25/25 09:22 Pulse 112 H 01/25/25 09:22 Resp 20 01/25/25 09:22 BP 124/66 01/25/25 09:22 Pulse Ox 96 01/25/25 09:22 Oxygen Delivery Method Room Air 01/25/25 09:22 BMI result Body Mass Index 37.4 Tobacco/Smoking Status: Tobacco use Status Tobacco use date assessed 01/25/25 01/25/25 09:29 Patient Tobacco Use Status Former Tobacco user (24 01/25/25 09:29 years ago) e-Cigarette/Vaping Use Never Used 01/25/25 09:29 PHQ-9: PHQ-9 Score PHQ-9: Total score 3 01/25/25 09:29 Depression Screening Interpretation: Negative Thrive Assessment: Date of Thrive Assessment Date Thrive assessed 01/25/25 01/25/25 09:29 Currently or been in a relationship where the following occur: No concerns reported Const General: no acute distress HENMT Head: Yes normal to inspection Ears: hearing grossly normal bilaterally Face and sinus: Yes normal facial exam Eyes General: appearance normal, both eyes and all related structures Resp Effort & Inspection: normal respiratory effort Auscultation: clear to auscultation bilaterally Cardio Rhythm: regular rhythm Heart sounds: S1 normal heart sound present and S2 normal heart sound present GI Inspection: Yes normal to inspection Palpation (GI): Soft to palpation Percussion: Yes normal to percussion Auscultation: normal bowel sounds Coding Level of Care Code Est Pt Level 4 (71089) Complex EM visit Add On G2211 Diagnoses HTN (hypertension) I10 Diabetes E11.9 EVANS (dyspnea on exertion) R06.09 Additional Codes NEDA-7 Assessment Billing - NEDA-7 Assessment Tool: NEDA-7 Assessment 79570 ([id number]) PHQ-9 - 44090 - PHQ-9 Billing: Yes ([id number]) Assessment & Plan Assessment & Plan (1) HTN (hypertension): Code(s): I10 - Essential (primary) hypertension Category: Medical Plan: Continue current medications (2) Diabetes: Comment: A1C 6.5 07/15 Code(s): E11.9 - Type 2 diabetes mellitus without complications Category: Medical Plan: A1c is down to 6.5, ADA diet increase exercise weight loss discussed with the patient continue metformin insulin and increase Ozempic to 0.5 mg weekly. Follow-up in 3 months (3) EVANS (dyspnea on exertion): Code(s): R06.09 - Other forms of dyspnea Category: Medical Plan: EKG showed normal sinus rhythm at 77, no acute ST-T changes. Obtain echocardiogram to evaluate for ejection fraction Orders: Orders Comprehensive [place]. Panel Fast 3 Months E11.9 - Type 2 diabetes mellitus without complications, I10 - Essential (primary) hypertension Lipid Panel 3 Months E11.9 - Type 2 diabetes mellitus without complications, I10 - Essential (primary) hypertension AMB EKG-In Office Today E11.9 - Type 2 diabetes mellitus without complications, I10 - Essential (primary) hypertension CA echo transthoracic complete Today R06.09 - Other forms of dyspnea Complete Blood Count Auto Diff 3 Months E11.9 - Type 2 diabetes mellitus without complications, I10 - Essential (primary) hypertension Hemoglobin A1c 3 Months E11.9 - Type 2 diabetes mellitus without complications, I10 - Essential (primary) hypertension Medications: New semaglutide (Ozempic) 0.5 mg (0.736 mL) subcut QWEEK 9 mL 1RF Changed From olmesartan Take 5 mg daily with olmesartan half a tablet of 20 mg 5 mg PO DAILY 90 tabs 3RF To olmesartan 15 mg (3 x 5 mg) PO DAILY 270 tabs 3RF Discontinued olmesartan Take a half a tablet daily with olmesartan 5 mg Discontinued Reason: Doctor's Order 20 mg PO DAILY 45 tabs 2RF semaglutide (Ozempic) Discontinued Reason: Doctor's Order 0.25 mg (0.368 mL) subcut QWEEK 3 mL 3RF
== END 2025-01-25 11:04 | disposition home or self-care (01) ==
PROVIDERS: PCP Internal Medicine; Visit Provider Internal Medicine
DX: I10 Essential (primary) hypertension (principal); E11.9 Type 2 diabetes mellitus without complications; R06.09 Other forms of dyspnea

== ENCOUNTER → 2025-01-25 09:20 | Outpatient (BNVA) | payer MEDICARE, SELFPAY | PROVIDERS: PCP Internal Medicine; Visit Provider Internal Medicine | DX: I10 Essential (primary) hypertension (principal); E11.9 Type 2 diabetes mellitus without complications; R06.09 Other forms of dyspnea | CPT/HCPCS: 96127; 99212 ==

== ENCOUNTER → 2025-02-14 09:43 | Outpatient (REF) | payer MEDICARE, SELFPAY ==
--- NOTE | 2025-02-14 09:46 | CA_ITS ---
Transthoracic Echocardiogram Patient (Last, First, Middle): Munira Calvo, Gender: Female Date of : 1945 Age: 79 Procedure Date: 02/14/2025 Procedure Type: Transthoracic Echocardiogram Location: OP Height: 162.56 cm Weight: 99.79 kg BSA: 2.04 m2 Heart Rate: 89 bpm BP: 122 / 60 mmHg Slag Dumper: Referring MD: Kae Ravi MD [employer]: Rusty Alexandra MD Symptoms: R06.09 - Other forms of dyspnea Study Quality: Fair ECG Rhythm: Sinus Conclusions: - 1. Normal LV ejection fraction with mild left ventricular hypertrophy with impaired relaxation filling pattern but elevated filling pressures 2. Normal cardiac valvular Dopplers 3. Normal measured RV systolic pressure 4. No gross pericardial effusion Findings Procedure Information Contrast agent, definity, is being given per protocol without apparent complications. Left Ventricle Normal left ventricular size and systolic function. There is mildly increased left ventricular wall thickness. The visually estimated ejection fraction is between 60-65%. Spectral Doppler is indicative of an impaired relaxation filling pattern. Elevated filling pressures. E/E prime ratio is >15, consistent with elevated filling pressures. Right Ventricle Normal right ventricular cavity size and systolic function. Atria The left atrium is normal in size. There is no evidence of interatrial shunt. The right atrium is normal in size. Aortic Valve The aortic valve structure and function is likely normal. There is no aortic valve stenosis. There is no aortic valve regurgitation. Mitral Valve Likely normal mitral valve structure and function. There is trace mitral valve regurgitation. There is no mitral valve stenosis. Pulmonic Valve The pulmonic valve was not well visualized. Tricuspid Valve Likely normal tricuspid valve structure and function. There is trace tricuspid valve regurgitation. The right ventricular systolic pressure is normal. The right ventricular systolic pressure is 15 mmHg. Normal right atrial pressure. There is no evidence of pulmonary hypertension. Great Vessels The pulmonary artery was not well visualized. There is no dilatation of the ascending aorta measuring 2.90 cm. Venous The inferior vena cava is normal in size and collapses greater than 50% with inspiration. Pericardium/Pleural There is no evidence of pericardial effusion. Prior Study Comparison No prior study available for comparison. Measurements 2D Linear Measurements IVSd: 1.23 0.6-0.9/0.6-1.0 cm LVIDd: 3.99 3.9-5.3/4.2-5.9 cm LVIDd Index: 1.96 2.4-3.2/2.2-3.1 cm/m2 LVIDs: 2.70 2.0-3.6 cm LVPWd: 1.20 0.7-1.1 cm LA Diam: 3.60 2.7-3.8/3.0-4.0 cm LAIDs Index: 1.76 1.5-2.3 cm/m2 LV Mass: 209.13 67-162/88-224 g LV Mass Index: 102.52 43-95/49-115 g/m2 LVOT Diam: 1.90 3.0+(-)1.3 cm 2D Systolic Function EF 4C: 64.80 >55% EF 2C: 59.50 >55% EF BiP: 60.00 >55% Mitral Valve MV Pk E: 0.80 MV PK A: 1.06 MV Decel Time: 205.00 E/A: 0.80 E'Lateral: 3.48 E'Medial: 4.57 E/E' Med: 17.50 E/E' Lat: 23.00 PHT: 60.00 MVA PHT: 3.67 Decel [place]: 3.91 Aortic Valve AoV Pk Butch: 1.67 AoV Mn Butch: 1.06 AoV VTI: 0.38 AoV Pk Grad: 11.00 Aov Mn Grad: 5.00 KAREN Cont.VTI: 1.30 LVOT LVOT Pk Butch: 0.73 LVOT Mn Butch: 0.48 LVOT VTI: 0.17 LVOT Pk Grad: 2.00 LVOT Mn Grad: 1.00 LVOT Diam: 1.90 LVOT Area: 2.84 Diastolic Function MV Pk E: 0.80 MV Pk A: 1.06 E/A: 0.80 E'Medial: 4.57 E/E' Med: 17.50 E' Laterial: 3.48 E/E' Lat: 23.00 Right Ventricle TAPSE (mm): 17.90 TVS' Butch: 10.00 Tricuspid Valve TR Pk Butch: 1.73 TR Pk Grad: 12.00 RA Press: 3.00 RVSP: 15.00 Great Vessels Aorta Sinus of Valsalva: 2.80 2.0-3.5 cm Ao Asc: 2.90 2.1-3.4 cm Pulmonary Valve PV Pk Butch: 1.00 Peak PV Grad: 4.00 Updated in Other Vendor System with Status of Final Rusty Alexandra MD electronically signed on 02/15/2025 1:00:54 PM with status of Final
== END ==
LOC: HO.CARD 09:43
PROVIDERS: PCP Internal Medicine; Visit Provider Internal Medicine
DX: R06.09 Other forms of dyspnea (principal)
CPT/HCPCS: 93306; Q9957

== ENCOUNTER → 2025-02-14 09:46 | Outpatient (BNV) | payer MEDICARE, SELFPAY | PROVIDERS: PCP Internal Medicine; Visit Provider Internal Medicine Cardiovascular Disease | DX: I42.2 Other hypertrophic cardiomyopathy (principal) | CPT/HCPCS: 93306 ==

== ENCOUNTER 2025-04-25 09:42 | Outpatient (REF) | payer MEDICARE, SELFPAY ==
--- OUTSIDE RECORDS SUMMARY | 2025-04-25 10:50 | XMS_ITS | Patient Health Record ---
Author Organization [facility] Address [address] [facility] [address] [place] [address] Care Team Providers Care Shove Up Name Role Phone Kae Ravi Primary Care [...] Problem Status W/U Status Risk Notes Problem [id number] Equinus deformity of foot (M21.6X9) Active confirmed Plan Of Treatment Pending Test Test Name Order Date X ray : Foot, left 3v 04/03/2021 Insurance Providers Payer Name Payer Address Payer Phone Subscriber Number Group Number Insured Name Patient Relationship to Insured Coverage Start Date Coverage End Date [facility] and [facility] [address] [place] [address] [phone] [id number] Munira Calvo Self - patient is the insured Medical (General) History Medical History History ICD Code Hypertension Diabetes mellitus treated with oral medi cation HLD (hyperlipidemia)
[2025-04-25 13:11] LABS: MANUAL DIFF FLAG NO
[2025-04-25 13:30] LABS: Basophils Absolute Auto 0.1 X10*3/uL (0.0-0.2); Basophils Percent Auto 0.8 % (0-2); Eosinophils Absolute Auto 0.2 X10*3/uL (0.0-0.4); Eosinophils Percent Auto 3.1 % (0-4); Hematocrit 42.6 % (37.0-47.0); Hemoglobin 14.5 g/dl (12.0-16.0); Imm Gran Abs Auto 0.04 X10*3/uL (0.00-0.03); Imm Gran Pct Auto 0.6 % (0.0-0.4); Lymphocytes Percent Auto 31.6 % (20-40); Mean Corpuscular Hemoglobin 31.1 pg (27.0-33.0); Mean Corpuscular Volume 91.4 fL (80.0-98.0); Mean Platelet Volume 10.9 fL (9.4-12.3); Monocytes Absolute Auto 0.5 X10*3/uL (0.1-1.2); Monocytes Percent Auto 7.5 % (2-11); Neutrophils Absolute Auto 3.6 x10*3/uL (2.0-8.3); Neutrophils Percent Auto 56.4 % (45-73); Platelet Count 244 X10*3/uL (160-400); Red Blood Count 4.66 X10*6/uL (4.20-5.50); Red Cell Distribution Width 13.2 % (11.0-16.0); White Blood Count 6.4 X10*3/uL (4.8-10.8)
[2025-04-25 14:02] LABS: Estimated Average Glucose 128 mg/dL; Hemoglobin A1c % 6.1 % (<6.0)
[2025-04-25 14:19] LABS: Alanine Aminotransferase 14 U/L (0-31); Albumin Level 4.1 g/dL (3.5-5.0); Alkaline Phosphatase 87 U/L (39-117); Anion Gap 13 (12-20); Aspartate Amino Transferase 21 U/L (5-31); Bilirubin Total 0.7 mg/dL (0.0-1.0); Blood Urea Nitrogen 12 mg/dL (9-16); Calcium 9.4 mg/dL (8.4-10.2); Carbon Dioxide 28 mmol/L (22-29); Chloride 106 mmol/L (96-108); Cholesterol 178 mg/dL (<200); Estimated Glomerular Filt Rate > 60; Glucose Fasting 163 mg/dL (60-99); HDL Cholesterol 68 mg/dL (>40); LDL Cholesterol Calculated 90 mg/dL (<100); Sodium 143 mmol/L (135-145); Total Protein 6.7 g/dL (6.5-8.0); Triglycerides 102 mg/dL (<150)
== END 2025-04-25 09:43 | disposition home or self-care (01) ==
LOC: HO.HMGCLDS 09:42
PROVIDERS: PCP Internal Medicine; Visit Provider Internal Medicine
DX: I10 Essential (primary) hypertension (principal); E11.9 Type 2 diabetes mellitus without complications
CPT/HCPCS: 36415; 80053; 80061; 83036; 85025

== ENCOUNTER 2025-05-01 09:19 | Outpatient (AMB) | payer MEDICARE, SELFPAY ==
[2025-05-01 09:26] VITALS: BP 134/68; PULSE 103; RESP 20; TEMP 36.8; O2SAT 97; BMI 37.3
--- NOTE | 2025-05-01 09:26 | A.OFFPC_ITS ---
Vital Signs 05/01/25 09:26 Height 5 ft 5 in Weight 224 lb BMI 37.3 BP 134/68 Blood Pressure Location Lt brachial Position Sitting Respiration 20 Pulse 103 H Pulse Source Pulse Oximeter Temp 98.2 F Temp Source Oral Pulse Oximetry (%) 97 Oxygen Delivery Method Room Air Intake Visit Reasons: 3 months - see comments Intake Note: Pt is here today for 3 months follow up visit. Allergies penicillin V Allergy (Unknown, Verified 05/01/25 09:28) unknown oxycodone Allergy (Verified 05/01/25 09:28) nausea dizziness alendronate sodium [From Fosamax] Adverse Reaction (Intermediate, Verified 05/01/25 09:28) Weakness, jelly legs lisinopril Adverse Reaction (Unknown, Verified 05/01/25 09:28) increased urination Medication List - Last Reconciled 05/01/25 by Kae Ravi MD amlodipine 5 mg PO DAILY blood sugar diagnostic ([employer] Ultra Test strips) Test blood sugar once a day flu vacc [id number](65yr up)-PF mL IM halobetasol propionate 0.05% 1 appl topical DAILY insulin glargine 20 units (0.2 mL) subcut BEDTIME metformin 1,000 mg PO BID miscellaneous medical supply 1 ea miscellaneous .qd miscellaneous medical supply 1 ea miscellaneous .QD olmesartan 15 mg (3 x 5 mg) PO DAILY pen needle, diabetic (BD Ultra-Fine Short Pen Needle) 1 ea topical DAILY 90 days semaglutide (Ozempic) 0.5 mg (0.736 mL) subcut QWEEK Tobacco use date assessed: 05/01/25 Fall risk assessment: No Falls in past year Last assessed Fall Risk: 05/01/25 Dental Screening Dental Screen Date: 01/25/25 HPI 3 months - see comments HPI Details Pt presents for f/u HTN, DM 2, stable on meds. PFS Medical History Nephrolithiasis Lung nodule Hematuria Obese Eye exam, routine Diabetes HTN (hypertension) Surgical History History of ankle surgery Family History Father No problems noted. Mother HTN (hypertension) Mental health disorder Social History Housing: Condominium Alcohol intake: current Alcohol intake frequency: 0-2 drinks per day Alcohol type: wine Patient Tobacco Use Status: Former Tobacco user (24 years ago) e-Cigarette/Vaping Use: Never Used Second Hand Smoke Exposure: No service: No Current occupational status: retired Current occupational exposures/hazards: No Cognitive needs: No Hearing needs: No Vision needs: Yes Questionnaire Thrive Questionnaire Date Thrive assessed: 01/19/25 I am a: Patient What is your living situation today?: I have a steady place to live Within the past 12 months, did the food you bought not last and you didn't have the money to get more?: Never true Within the past 12 months, did you worry whether your food would run out before you got money to buy more?: Never true Do you have trouble paying for medicines?: No Do you have trouble getting transportation to medical appointments?: No Do you have trouble paying your heating and electricity bill?: No Do you have trouble taking care of your child, family member or friend?: No Do you have trouble with day-to-day activities such as bathing, preparing meals, shopping, managing finances, etc.?: No Are you currently unemployed and looking for a job?: No Are you interested in more education?: No Please select the resources that you would like help with: None Currently or been in a relationship where the following occur: No concerns reported THRIVE Score: 0 NEDA-7 AMB Questionnaire NEDA-7 Date NEDA - 7 assessed: 01/25/25 Source: Developed by Drs. Sanford Mendoza, Bhumika Jacques, Vince Bartholomew and colleagues, with an educational nida from [employer]. Review of Systems Const All systems reviewed & are unremarkable except as noted in HPI and below Eyes Reports no additional complaints ENT Reports no additional complaints Card Reports no additional complaints Resp Reports no additional complaints GI Reports no additional complaints Physical exam (Primary Care) Vital Signs: Last Vital Signs Temp 98.2 F 05/01/25 09:26 Pulse 103 H 05/01/25 09:26 Resp 20 05/01/25 09:26 BP 134/68 05/01/25 09:26 Pulse Ox 97 05/01/25 09:26 Oxygen Delivery Method Room Air 05/01/25 09:26 BMI result Body Mass Index 37.3 Tobacco/Smoking Status: Tobacco use Status Tobacco use date assessed 05/01/25 05/01/25 09:32 Patient Tobacco Use Status Former Tobacco user (24 05/01/25 09:32 years ago) e-Cigarette/Vaping Use Never Used 05/01/25 09:32 Thrive Assessment: Date of Thrive Assessment Date Thrive assessed 01/19/25 05/01/25 09:32 Currently or been in a relationship where the following occur: No concerns reported Const General: no acute distress HENMT Head: Yes normal to inspection Face and sinus: Yes normal facial exam Throat: Yes posterior oropharynx normal Eyes General: appearance normal, both eyes and all related structures Neck Neck: Yes no lymphadenopathy and Yes supple Resp Effort & Inspection: normal respiratory effort Auscultation: clear to auscultation bilaterally Cardio Rhythm: regular rhythm Heart sounds: S1 normal heart sound present and S2 normal heart sound present GI Inspection: Yes normal to inspection Palpation (GI): Soft to palpation Percussion: Yes normal to percussion Auscultation: normal bowel sounds Coding Level of Care Code Est Pt Level 4 (69213) Diagnoses HTN (hypertension) I10 Diabetes E11.9 Assessment & Plan Assessment & Plan (1) HTN (hypertension): Code(s): I10 - Essential (primary) hypertension Category: Medical Plan: Continue current medications (2) Diabetes: Comment: A1C 6.5 07/15 Code(s): E11.9 - Type 2 diabetes mellitus without complications Category: Medical Plan: A1c is 6.2. Continue ADA diet current medications increase physical activity follow-up in 3 months with a fasting labs before Orders: Orders Comprehensive Kimberly. Panel Fast 3 Months E11.9 - Type 2 diabetes mellitus without complications, I10 - Essential (primary) hypertension Hemoglobin A1c 3 Months E11.9 - Type 2 diabetes mellitus without complications, I10 - Essential (primary) hypertension Lipid Panel 3 Months E11.9 - Type 2 diabetes mellitus without complications, I10 - Essential (primary) hypertension Microalbumin, Random (w Creat) 3 Months E11.9 - Type 2 diabetes mellitus without complications, I10 - Essential (primary) hypertension Medications: Changed From semaglutide (Ozempic) 0.5 mg (0.736 mL) subcut QWEEK 9 mL 1RF To Ozempic (semaglutide) 0.5 mg (0.736 mL) subcut QWEEK 3 mL 4RF NS Refilled amlodipine 5 mg PO DAILY 90 tabs 3RF olmesartan 15 mg (3 x 5 mg) PO DAILY 270 tabs 3RF metformin 1,000 mg PO BID 200 tabs 3RF insulin glargine 20 units (0.2 mL) subcut BEDTIME 15 mL 3RF
--- OUTSIDE RECORDS SUMMARY | 2025-05-01 09:49 | XMS_ITS | Patient Health Record ---
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
== END 2025-05-01 10:55 | disposition home or self-care (01) ==
LOC: HO.HMCC 09:20
PROVIDERS: PCP Internal Medicine; Visit Provider Internal Medicine
DX: I10 Essential (primary) hypertension (principal); E11.9 Type 2 diabetes mellitus without complications

== ENCOUNTER → 2025-05-01 09:19 | Outpatient (BNVA) | payer MEDICARE, SELFPAY | PROVIDERS: PCP Internal Medicine; Visit Provider Internal Medicine | DX: I10 Essential (primary) hypertension (principal); E11.9 Type 2 diabetes mellitus without complications | CPT/HCPCS: 99212 ==

== ENCOUNTER 2025-07-27 09:40 | Outpatient (REF) | payer MEDICARE, SELFPAY ==
--- OUTSIDE RECORDS SUMMARY | 2025-07-27 10:31 | XMS_ITS | Clinical Summary ---
Author Organization [facility] Address [address] [facility] [address] [place] [address] Phone Care Team Providers Care Service Coordinator Name Role Phone Kae Ravi MD Primary Care Provider [phone] Social History Tobacco Use Types Packs/Day Years Used Date Smoking Tobacco: Never Assessed Education Answer Date Recorded Are you interested in more education? Not on shahnaz e 03/21/2023 Are you concerned about learning? Not on file 03/21/2023 No 03/21/2023 No 03/21/2023 Digital Access Answer Date Recorded No 04/19/2023 No 04/19/2023 No 04/19/2023 Reliable internet access at home? Not on file 04/19/2023 Device with a working camera? Not on file Comments Unknown Sex and Gender Information Value Date Recorded Sex Assigned at Not on file Legal Sex Female 4:15 PM EST Gender Identity Not on file Sexual Orientation Not on file Plan of Treatment Health Maintenance Due Date Last Done Comments Adult Td,Tdap Booster 1945 LIPID PANEL 1945 DEPRESSION SCREENING 1957 SMOKING Hx and SMOKELESS TOB ACCO SCREENING 1958 HEPATITIS C SCREENING 1963 PNEUMOCOCCAL VACCINES (50+ y ears) (1 of 1 - PCV) 1995 ZOSTER VACCINES (1 of 2) 1995 OSTEOPOROSIS SCREENING INITI AL (ONE-TIME) 2010 RSV VACCINE (1 - 1-dose 75+ series) 2020 COVID-19 VACCINE (1 - 2024-2 5 season) 2024 HEPATITIS A VACCINES Aged Out No long er eligible based on patient's age to complete this topic HIB VACCINES Aged Out No longer eligi ble based on patient's age to complete this topic MENINGOCOCCAL VACCINES (ACWY) Aged Out No longer eligible based on patient's age to complete this topic MENINGOCOCCAL VACCINES (B) Aged Out N o longer eligible based on patient's age to complete this topic Medical Devices Not on file Insurance MEDICARE REPLACEMENT MEDICARE REPLACEMENT MEDICARE REPLACEMENT MEDICARE REPLACEMENT MEDICARE REPLACEMENT MEDICARE REPLACEMENT MEDICARE REPLACEMENT MEDICARE REPLACEMENT MEDICARE REPLACEMENT [place] [id number] Care Teams Service Coordinator Relationship Specialty Start Date End Date Kae Ravi MD [address] [address] PCP - General Internal Medicine 12/05/21 Additional Source Comments The information contained in this document represents components of the legal health record. It is not the complete legal health record.[facility]
--- OUTSIDE RECORDS SUMMARY | 2025-07-27 10:31 | XMS_ITS | Patient Health Record ---
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
[2025-07-27 13:43] LABS: Alanine Aminotransferase 13 U/L (0-31); Albumin Level 4.4 g/dL (3.5-5.0); Alkaline Phosphatase 86 U/L (39-117); Anion Gap 16 (12-20); Aspartate Amino Transferase 23 U/L (5-31); Blood Urea Nitrogen 13 mg/dL (9-16); Calcium 9.7 mg/dL (8.4-10.2); Carbon Dioxide 28 mmol/L (22-29); Chloride 105 mmol/L (96-108); Cholesterol 174 mg/dL (<200); Estimated Glomerular Filt Rate > 60; HDL Cholesterol 70 mg/dL (>40); Hemoglobin A1C 150.4132 umol/L; Potassium 5.0 mmol/L (3.3-5.1); Sodium 144 mmol/L (135-145); Total Hemoglobin (HGBA1C) 3710.1914 umol/L; Total Protein 6.8 g/dL (6.5-8.0); Triglycerides 82 mg/dL (<150)
[2025-07-27 13:47] LABS: Microalbum/Creatinine Ratio Ur 184.7 ug/mg cr (<30)
== END 2025-07-27 09:41 | disposition home or self-care (01) ==
LOC: HO.HMGCLDS 09:40
PROVIDERS: PCP Internal Medicine; Visit Provider Internal Medicine
DX: I10 Essential (primary) hypertension (principal); E11.9 Type 2 diabetes mellitus without complications
CPT/HCPCS: 36415; 80053; 80061; 82043; 82570; 83036

== ENCOUNTER 2025-08-01 08:20 | Outpatient (AMB) | payer MEDICARE, SELFPAY ==
--- NOTE | 2025-08-01 08:22 | A.OFFPC_ITS ---
Vital Signs 08/01/25 08:25 Height 5 ft 5 in Weight 220 lb BMI 36.6 BP 134/70 Blood Pressure Location Lt brachial Position Sitting Pulse 96 Pulse Source Pulse Oximeter Temp 98.2 F Temp Source Oral Pulse Oximetry (%) 96 Oxygen Delivery Method Room Air Intake Visit Reasons: Annual Intake Note: Pt is here today for PE. Allergies penicillin V Allergy (Unknown, Verified 08/01/25 08:28) unknown oxycodone Allergy (Verified 08/01/25 08:28) nausea dizziness alendronate sodium (From Fosamax) Adverse Reaction (Intermediate, Verified 08/01/25 08:28) Weakness, jelly legs lisinopril Adverse Reaction (Unknown, Verified 08/01/25 08:28) increased urination Medication List - Last Reconciled 08/01/25 by Kae Ravi MD amlodipine 5 mg PO DAILY blood sugar diagnostic ([employer] Ultra Test strips) Test blood sugar once a day flu vacc [id number](65yr up)-PF mL IM halobetasol propionate 0.05% 1 appl topical DAILY insulin glargine (Lantus Solostar U-100 Insulin) 20 units (0.2 mL) subcut BEDTIME metformin 1,000 mg PO BID miscellaneous medical supply 1 ea miscellaneous .qd miscellaneous medical supply 1 ea miscellaneous .QD olmesartan 15 mg (3 x 5 mg) PO DAILY Ozempic (semaglutide) 0.5 mg (0.736 mL) subcut QWEEK NS pen needle, diabetic 1 ea topical DAILY 90 days Tobacco use date assessed: 08/01/25 Fall risk assessment: No Falls in past year Last assessed Fall Risk: 08/01/25 Dental Screening Dental Screen Date: 08/01/25 Did you have a dental visit in the last 12 months?: Yes Did you have a dental problem in the last 6 months where you did not have access to dental care?: No Was dental information given to patient?: Patient has dentist HPI Annual HPI Details Pt presents for PE. IDDM, HTN, stable on meds. [facility] Medical History Nephrolithiasis Lung nodule Hematuria Obese Eye exam, routine Diabetes HTN (hypertension) Surgical History History of ankle surgery Family History Father No problems noted. Mother HTN (hypertension) Mental health disorder Social History [facility] Alcohol intake: current Alcohol intake frequency: 0-2 drinks per day Alcohol type: wine Patient Tobacco Use Status: Former Tobacco user (24 years ago) e-Cigarette/Vaping Use: Never Used Second Hand Smoke Exposure: No service: No Current occupational status: retired Current occupational exposures/hazards: No Cognitive needs: No Hearing needs: No Vision needs: Yes Questionnaire PHQ-9 Over the last 2 weeks, how often have you been bothered by any of the following problems? 1. Little interest or pleasure in doing things: not at all 2. Feeling down, depressed, or hopeless: not at all 3. Trouble falling or staying asleep, or sleeping too much: not at all 4. Feeling tired or having little energy: not at all 5. Poor appetite or overeating: not at all 6. Feeling bad about yourself - or that you are a failure or have let yourself or your family down: not at all 7. Trouble concentrating on things, such as reading the newspaper or watching television: not at all 8. Moving or speaking so slowly that other people could have noticed. Or the opposite - being so fidgety or restless that you have been moving around a lot more than usual: not at all 9. Thoughts that you would be better off or of hurting yourself in some way: not at all Total score: 0 Depression Screening Interpretation: Negative Depression Screening Done: Yes 07506 - PHQ-9 Billing: Yes Source: Developed by Drs. Sanford Mendoza, Bhumika Jacques, Vince Bartholomew and colleagues, with an educational nida from [employer]. Thrive Questionnaire Date Thrive assessed: 08/01/25 I am a: Patient What is your living situation today?: I have a steady place to live Within the past 12 months, did the food you bought not last and you didn't have the money to get more?: Never true Within the past 12 months, did you worry whether your food would run out before you got money to buy more?: Never true Do you have trouble paying for medicines?: No Do you have trouble getting transportation to medical appointments?: No Do you have trouble paying your heating and electricity bill?: No Do you have trouble taking care of your child, family member or friend?: No Do you have trouble with day-to-day activities such as bathing, preparing meals, shopping, managing finances, etc.?: No Are you currently unemployed and looking for a job?: No Are you interested in more education?: No Please select the resources that you would like help with: None Currently or been in a relationship where the following occur: No concerns reported THRIVE Score: 0 NEDA-7 AMB Questionnaire NEDA-7 Date NEDA - 7 assessed: 01/25/25 Feeling nervous, anxious, or on edge: 0 = Not at all Not being able to stop or control worryin = Not at all Worrying too much about different things: 0 = Not at all Trouble relaxin = Not at all Being so restless that it is hard to sit still: 0 = Not at all Becoming easily annoyed or irritable: 0 = Not at all Feeling afraid as if something awful might happen: 0 = Not at all Total NEDA-7 score (0-4 normal; 5-9 mild; 10-14 moderate; 15-21 severe): 0 Source: Developed by Drs. Sanford Mendoza, Bhumika Jacques, Vince Bartholomew and colleagues, with an educational nida from [employer]. Review of Systems Const All systems reviewed & are unremarkable except as noted in HPI and below Eyes Reports no additional complaints ENT Reports no additional complaints Card Reports no additional complaints Resp Reports no additional complaints GI Reports no additional complaints Reports no additional complaints Physical exam (Primary Care) Vital Signs: Last Vital Signs Temp 98.2 F 08/01/25 08:25 Pulse 96 08/01/25 08:25 BP 134/70 08/01/25 08:25 Pulse Ox 96 08/01/25 08:25 Oxygen Delivery Method Room Air 08/01/25 08:25 BMI result Body Mass Index 36.6 Tobacco/Smoking Status: Tobacco use Status Tobacco use date assessed 08/01/25 08/01/25 08:31 Patient Tobacco Use Status Former Tobacco user (24 08/01/25 08:22 years ago) e-Cigarette/Vaping Use Never Used 08/01/25 08:22 PHQ-9: PHQ-9 Score PHQ-9: Total score 0 08/01/25 08:33 Depression Screening Interpretation: Negative Thrive Assessment: Date of Thrive Assessment Date Thrive assessed 08/01/25 08/01/25 08:31 Currently or been in a relationship where the following occur: No concerns repor veronika Const General: no acute distress HENMT Head: Yes normal to inspection Ears: hearing grossly normal bilaterally Face and sinus: Yes normal facial exam Mouth: Normal oral and palatal mucosa present Eyes General: appearance normal, both eyes and all related structures Neck Neck: Yes no lymphadenopathy and Yes supple Resp Effort & Inspection: normal respiratory effort Auscultation: clear to auscultation bilaterally Cardio Rhythm: regular rhythm Heart sounds: S1 normal heart sound present and S2 normal heart sound present GI Inspection: Yes normal to inspection Palpation (GI): Soft to palpation Percussion: Yes normal to percussion Auscultation: normal bowel sounds Coding Level of Care Code Est Pt Prev Care >65y([address]) Diagnoses HTN (hypertension) I10 Diabetes E11.9 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 She denies hypoglycemia episodes but has been monitoring her blood glucose only once a day. She is not interested in using continuous glucose monitoring sensor. Lantus will be decreased to 15 units a day. 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 Orders: Orders Hemoglobin A1c 6 Months E11.9 - Type 2 diabetes mellitus without complications, I10 - Essential (primary) hypertension, Z00.00 - Encounter for general adult medical examination without abnormal findings Comprehensive [place]. Panel Fast 6 Months E11.9 - Type 2 diabetes mellitus without complications, I10 - Essential (primary) hypertension, Z00.00 - Encounter for general adult medical examination without abnormal findings Lipid Panel 6 Months E11.9 - Type 2 diabetes mellitus without complications, I10 - Essential (primary) hypertension, Z00.00 - Encounter for general adult medical examination without abnormal findings Complete Blood Count Auto Diff 6 Months E11.9 - Type 2 diabetes mellitus without complications, I10 - Essential (primary) hypertension, Z00.00 - Encounter for general adult medical examination without abnormal findings Microalbumin, Random (w Creat) 6 Months E11.9 - Type 2 diabetes mellitus without complications, I10 - Essential (primary) hypertension, Z00.00 - Encounter for general adult medical examination without abnormal findings Medications: Changed From insulin glargine (Lantus Solostar U-100 Insulin) 20 units (0.2 mL) subcut BEDTIME 30 mL 0RF To Lantus Solostar U-100 Insulin (insulin glargine) 15 units (0.15 mL) subcut BEDTIME 15 mL 3RF NS Refilled Ozempic (semaglutide) 0.5 mg (0.736 mL) subcut QWEEK 9 mL 4RF NS
[2025-08-01 08:25] VITALS: BP 134/70; PULSE 96; TEMP 36.8; O2SAT 96; BMI 36.6
--- OUTSIDE RECORDS SUMMARY | 2025-08-01 09:18 | XMS_ITS | Patient Health Record ---
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
--- OUTSIDE RECORDS SUMMARY | 2025-08-01 09:18 | XMS_ITS | Clinical Summary ---
Author Organization [facility] Address [address] [facility] [address] [place] [address] Phone Care Team Providers Care Branch Associate Teller Name Role Phone Kae Ravi MD Primary Care Provider [phone] Social History Tobacco Use Types Packs/Day Years [...] VACCINE (1 - 1-dose 75+ series) 2020 INFLUENZA VACCINE (#1) 2025 COVID-19 VACCINE (2023-2 5 season) 2025 HEPATITIS A VACCINES Aged Out No long [...] REPLACEMENT MEDICARE REPLACEMENT MEDICARE REPLACEMENT MEDICARE REPLACEMENT [place] [id number] Care Teams Branch Associate Teller Relationship Specialty Start Date End Date Kae Ravi MD [address] [place] [address] PCP - General Internal Medicine 12/05/21 Additional Source Comments The information contained in this document represents components of the legal health record. It is not the complete legal health record.[facility]
== END 2025-08-01 08:49 | disposition home or self-care (01) ==
LOC: HO.HMCC 08:21
PROVIDERS: PCP Internal Medicine; Visit Provider Internal Medicine
DX: I10 Essential (primary) hypertension (principal); E11.9 Type 2 diabetes mellitus without complications; C64.9 Malignant neoplasm of unspecified kidney, except renal pelvis; Z00.00 Encounter for general adult medical examination without abnormal findings

== ENCOUNTER → 2025-08-01 08:20 | Outpatient (BNVA) | payer MEDICARE, SELFPAY | PROVIDERS: PCP Internal Medicine; Visit Provider Internal Medicine | DX: Z00.00 Encounter for general adult medical examination without abnormal findings (principal); I10 Essential (primary) hypertension; E11.9 Type 2 diabetes mellitus without complications; C64.9 Malignant neoplasm of unspecified kidney, except renal pelvis | CPT/HCPCS: 96127; 99397 ==

== ENCOUNTER 2025-10-06 07:03 | Observation (INO) | payer MEDICARE, OTHER, SELFPAY ==
--- NOTE | ~2025-10-06 | CT_ITS ---
EXAMINATION: CT ABDOMEN PELVIS WITH IV CONTRAST HISTORY: rectal bleeding abdominal cramps COMPARISON: There are no prior studies for available comparison. TECHNIQUE: CT scan of the abdomen and pelvis was performed following administration of 85 mL Omnipaque 350 using standard departmental protocol. Coronal and sagittal reformatted images were generated and reviewed. This CT exam was performed with one or more of the following dose reduction techniques: automated exposure control, adjustment of the mA and/or kV according to patient size, use of iterative reconstruction technique. DLP: 211 mGy-cm FINDINGS: LOWER CHEST: Heterogeneous partially solid partially semisolid groundglass attenuation right lower lobe nodule. The solid component measures up to 9 mm axial image 35 series 4. This is slightly increased from 6 mm on August [address] Surrounding groundglass attenuation may be decreased compared to August 2021 exam. CARDIOVASCULATURE: The heart is normal in size. There is no pericardial effusion. LIVER: The liver is normal in size and contour. No liver mass is identified. The hepatic and portal veins are patent. GALLBLADDER / BILE DUCTS: The gallbladder is unremarkable. There is no intra or extrahepatic biliary ductal dilatation. SPLEEN: The spleen is normal in size. No focal splenic lesion is identified. PANCREAS: The pancreas is unremarkable in appearance. ADRENAL GLANDS: Within normal limits. KIDNEYS/RETROPERITONEUM: Left renal stones. There is a large 10 x 20 mm stone or cast of clustered small stones in an upper pole calyx of the left kidney. There are adjacent smaller 1 to 2 mm left upper pole renal stones. There is left hydronephrosis. The left ureter does not appear dilated. Appearance is questionable for a left UPJ obstruction. There is left renal cortical thinning suggestive of long-standing obstruction. There are several bilateral low-attenuation renal lesions probably representing cysts. The largest measures 2 cm in the posterior upper pole of the left kidney. LYMPH NODES: Small portacaval retroperitoneal and bilateral inguinal lymph nodes similar to previous exam. No new or enlarged lymph nodes. VASCULATURE: Atherosclerotic disease. No abdominal aortic aneurysm. Question mild dilatation of the splenic artery measuring up to 9.5 mm axial image 18 series 3. MESENTERY/PERITONEUM: No free fluid. No masses. There is no free intraperitoneal gas. STOMACH: Small posterior gastric diverticulum. SMALL BOWEL: The small bowel is normal in caliber. COLON: Severe chronic diverticulosis. Question mild diverticulitis of the sigmoid colon. APPENDIX: The appendix is not seen, however no inflammatory changes are seen adjacent to the cecum. There is a large complex ventral and supraumbilical hernia containing fat small and large bowel. No evidence of obstruction. No fluid or fatty infiltration of the hernia sac. URINARY BLADDER/PELVIC ORGANS: The urinary bladder is unremarkable. Hysterectomy. No pelvic mass. BONES / SOFT TISSUES: Degenerative changes of the spine and hip joints. Large complex ventral and umbilical hernias containing fat small and large bowel. No evidence of obstruction. CT/CT abdomen pelvis w IV con IMPRESSION: Severe diverticulosis and question mild diverticulitis of the sigmoid colon. Large complex ventral and supraumbilical hernias containing fat, small and large bowel. No evidence of obstruction. Posterior gastric diverticulum unchanged. Left renal stones. Largest stone or cluster of stones in upper pole calyx measures 10 x 20 cm. Moderate left hydronephrosis and renal cortical thinning suggestive of long-standing obstruction. Question left UPJ obstruction. Stable bilateral low-attenuation renal lesions probably representing cysts. Heterogeneous right lower lobe nodule. Solid component appears increased and groundglass component appears decreased compared to August [address] Cannot exclude neoplastic process and chest CT follow-up recommended. Electronically signed by: Ludy Cespedes MD 10/06/2025 09:42 AM [facility]
[2025-10-06 07:15] VITALS: BP 156/69; PULSE 124; RESP 18; TEMP 36.6; O2SAT 97; BMI 38.3
--- NOTE | 2025-10-06 07:28 | ED_ITS ---
HPI - General Adult General Chief complaint: General Medical Stated complaint: rectal bleeding Time Seen by Provider: 10/06/25 07:15 Source: patient Mode of arrival: ambulatory Limitations: no limitations History of Present Illness HPI narrative: This is 80 years old patient presented to the emergency department with a chief complaint of rectal bleeding, she denies any abdominal pain rectal bleeding he has been ongoing since yesterday. Onset (ago): day(s) (1) Location: abdomen (rectal) Radiation: non-radiation Severity: moderate Relieving factors: none Exacerbating factors: none Related Data Home Medications ?Medication ?Instructions ?Recorded ?Confirmed flu vacc [id number](65yr up)-PF 240 ml IM 10/05/20/0 9/ mcg/0.7 mL intramuscular syringe Previous Rx's ?Medication ?Instructions ?Recorded halobetasol propionate 0.05 % 1 appl topical DAILY #50 grams 03/07/22 topical cream miscellaneous medical supply 1 ea miscellaneous .QD #1 ea 07/15/23 miscellaneous medical supply 1 ea miscellaneous .qd #1 ea 07/15/23 blood sugar diagnostic (OneTouch #100 ea 03/21/25 Ultra Test strips) amlodipine 5 mg tablet 5 mg PO DAILY #90 tabs 05/01 metformin 1,000 mg tablet 1,000 mg PO BID #200 tabs olmesartan 5 mg tablet 15 mg (3 x 5 mg) PO DAILY #2 70 tabs 05/01/25 pen needle, diabetic 31 gauge x 1 ea topical DAILY 90 days #90 ea 06/25/25 5/16 Lantus Solostar U-100 Insulin 100 15 unit (0.15 mL) zhang bcut BEDTIME 08/01/25 unit/mL (3 mL) subcutaneous pen #15 mL (insulin glargine) Ozempic 0.25 mg or 0.5 mg (2 mg/3 0.5 mg (0.736 mL) zhang bcut QWEEK #9 08/01/25 mL) subcutaneous pen injector mL (semaglutide) meclizine 25 mg tablet 25 mg PO BID PRN for dizzine ss #30 08/31/25 tabs Allergies Allergy/AdvReac Type Severity Reaction Status Date / Time penicillin V Allergy Unknown unknown Verified 10/06/25 07:18 oxycodone Allergy nausea Verified 10/06/25 07:18 dizziness alendronate sodium (From AdvReac Intermediate Weakness, Verified 10/06/25 07:18 Fosamax) jelly legs lisinopril AdvReac Unknown increased Verified 10/06/25 07:18 urination Review of Systems 2 Constitutional: Constitutional: Reports no additional constitutional complaints Cardiovascular: Cardiovascular: Reports no additional cardiovascular complaints Musculoskeletal: Musculoskeletal: Reports no additional musculoskeletal complaints PMFSH Past Medical History Attestation statement: The following information was validated with the patient. Medical History Nephrolithiasis Lung nodule Hematuria Obese Eye exam, routine Diabetes HTN (hypertension) Surgical History History of ankle surgery Family History Family History Father No problems noted. Mother HTN (hypertension) Mental health disorder Social History Social [facility] Alcohol intake: current Alcohol intake frequency: 0-2 drinks per day Alcohol type: wine Patient Tobacco Use Status: Former Tobacco user (24 years ago) Smoked in Last 30 Days: No e-Cigarette/Vaping Use: Never Used Second Hand Smoke Exposure: No Use of substances other than those prescribed or required for medical reasons: No Advance Directives: Yes Advance Directives Information Provided: Yes Advance Directives on File: No Do you have a plan to hurt others: No Plan service: No Current occupational status: retired Current occupational exposures/hazards: No Cognitive needs: No Hearing needs: No Vision needs: Yes Physical Exam ED Exam Exam: No acute distress looks well Vital Signs: Vital Signs - 24 hr 10/06/25 07:15 10/06/25 08:09 10/06/25 10:02 Temperature 98 F 98.3 F Pulse Rate 124 H 89 78 Respiratory Rate 18 20 15 Blood Pressure 156/69 H 107/55 L 133/58 L Pulse Oximetry 97 94 98 Oxygen Delivery Method Room Air Room Air Room Air BMI result Body Mass Index 38.3 Const General: cooperative Nutritional Appearance: well nourished Orientation/consciousness: patient oriented x3 HENMT Head: Yes normal to inspection Ears: hearing grossly normal bilaterally General nose exam: Normal external nose present Face and sinus: Yes normal facial exam Mouth: Normal oral and palatal mucosa present Neck Neck: Yes normal visual inspection and Yes full ROM Chest Chest palpation & inspection: normal inspection of the chest Resp Effort & Inspection: normal respiratory effort and able to speak in complete sentences Auscultation: clear to auscultation bilaterally Cardio Jugular venous distension: no JVD Rate: regular rate Rhythm: regular rhythm GI Inspection: Yes normal to inspection Palpation (GI): Soft to palpation, not firm, nontender and no guarding Rectal Exam - Female: other (Rectal exam was done patient has blood in the rectum) Neuro General: patient oriented x3 Medications Administered Generic Name Dose Route Start Last Admin Trade Name Freq PRN Reason Stop Dose Admin Sodium Chloride 1,000 mls @ 100 mls/hr 10/06/25 07:45 10/06/25 08:09 Ns IVCONT 100 mls/hr .Q10H CARLITO Administration Discontinued Medications Generic Name Dose Route Start Last Admin Trade Name Freq PRN Reason Stop Dose Admin Iohexol 100 ml 10/06/25 08:49 10/06/25 08:50 Iohexol 350 Mg/Ml 100 Ml Infus..Btl IV 10/06/25 08:50 85 ml ONCE ONE Administration Medical Decision Making Lab Data 10/06/25 08:07 10/06/25 08:07 Labs: Lab Results 10/06/25 10/06/25 Range/Units 08:07 09:01 WBC 7.9 (4.8-10.8) X10*3/uL RBC 3.41 L D (4.20-5.50) X10*6/uL Hgb 10.5 L D (12.0-16.0) g/dl Hct 31.3 L D (37.0-47.0) % MCV 91.8 (80.0-98.0) fL MCH 30.8 (27.0-33.0) pg MCHC 33.5 (31.0-35.0) g/dl RDW 13.3 (11.0-16.0) % Plt Count 238 (160-400) X10*3/uL MPV 10.8 (9.4-12.3) fL Immature Gran % (Auto) 0.5 H (0.0-0.4) % Neut % (Auto) 70.1 (45-73) % Lymph % (Auto) 20.7 (20-40) % Grayson % (Auto) 6.7 (2-11) % Eos % (Auto) 1.4 (0-4) % Baso % (Auto) 0.6 (0-2) % Lymph # (Auto) 1.6 (1.2-4.9) X10*3/uL Grayson # (Auto) 0.5 (0.1-1.2) X10*3/uL Eos # (Auto) 0.1 (0.0-0.4) X10*3/uL Baso # (Auto) 0.1 (0.0-0.2) X10*3/uL Abs Immat Gran (auto) 0.04 H (0.00-0.03) X10*3/uL Absolute Neuts (auto) 5.6 (2.0-8.3) x10*3/uL Absolute Nucleated RBC 0.000 (0.0-0.012) X10*3/uL Nucleated RBC % (auto) 0.0 (0.0-0.2) /100WBC PT 13.5 (11.2-13.5) SEC INR 1.1 (0.9-1.1) APTT 30.5 (26.7-34.1) SEC Hold Blue Top SEE NOTE Sodium 143 (135-145) mmol/L Potassium 4.1 (3.3-5.1) mmol/L Chloride 110 H (96-108) mmol/L Carbon Dioxide 26 (22-29) mmol/L Anion Gap 11 L (12-20) BUN 18 H (9-16) mg/dL Creatinine 0.89 (0.5-1.4) mg/dL Estim Creat Clear Calc 58.3 Estimated GFR > 60 Random Glucose 177 H (60-115) mg/dL Calcium 8.8 D (8.4-10.2) mg/dL Total Bilirubin 0.6 (0.0-1.0) mg/dL AST 18 (5-31) U/L ALT 9 (0-31) U/L Alkaline Phosphatase 75 (39-117) U/L Total Protein 5.5 L (6.5-8.0) g/dL Albumin 3.5 (3.5-5.0) g/dL Stool Occult Blood POSITIVE (NEGATIVE) Blood Type O Positive Antibody Screen NEGATIVE Critical Care Time Critical Care Time Critical Care Time: Yes Total Critical Care Time: 60 Attestation: Rectal bleeding tachycardia at arrival taking care of the patient speaking with the hospitalist Discharge Plan Discharge Clinical Impression: Rectal bleeding Patient Disposition: Admitted As Inpatient Print Language: Venezuelan
--- NOTE | 2025-10-06 07:31 | ECG_ITS ---
Test Reason : CHEST PAIN Blood Pressure : */* mmHG Vent. Rate : 86 BPM Atrial Rate : 86 BPM P-R Int : 192 ms QRS Dur : 86 ms QT Int : 394 ms P-R-T Axes : 67 24 70 degrees QTcB Int : 471 ms Normal sinus rhythm Cannot rule out Anterior infarct , age undetermined Abnormal ECG No previous ECGs available Referred By: Pj Pickering Electronically Signed By: RICARDO SANDOVAL MD
--- OUTSIDE RECORDS SUMMARY | 2025-10-06 07:33 | XMS_ITS | Patient Health Record ---
Author Organization [facility] Address [address] [facility] [place] [address] Care Team Providers Care Knotter Hand Name Role Phone Kae Ravi Primary Care [...] Risk Notes Problem Equinus deformity of foot (894127085) Equinus deformity of foot (M21.6X9) Active confirmed Plan Of Treatment Pending Test Test Name Order Date X ray : Foot, left 3v 04/03/2021 Insurance Providers Payer Name Payer Address Payer Phone Subscriber Number Group Number Insured Name Patient Relationship to Insured Coverage Start Date Coverage End Date [facility] [address] [place] [address] [phone] [id number] Munira Calvo Self - patient is the insured Medical (General) History Medical History History ICD Code Hypertension Diabetes mellitus treated with oral medi cation HLD (hyperlipidemia)
--- OUTSIDE RECORDS SUMMARY | 2025-10-06 07:33 | XMS_ITS | Clinical Summary ---
Author Organization [facility] Address [address] [place] [phone] Phone Care Team Providers Care Auto Parts Handler Name Role Phone Kae Ravi MD Primary Care Provider [phone] Social History Tobacco Use Types Packs/Day Years [...] Hx and SMOKELESS TOB ACCO SCREENING 1958 PNEUMOCOCCAL VACCINES (50+ y ears) (1 of 1 - PCV) 1995 ZOSTER VACCINES (1 of 2) 1995 OSTEOPOROSIS SCREENING INITI AL (ONE-TIME) 2010 RSV VACCINE (1 - 1-dose 75+ series) 2020 INFLUENZA VACCINE (#1) 2025 COVID-19 VACCINE (2024-2 6 season) 2025 HEPATITIS A VACCINES Aged Out No long er eligible based on patient's age to complete this topic HIB VACCINES Aged Out No longer eligi ble based on patient's age to complete this topic IPV VACCINES Aged Out No longer eligi ble based on patient's age to complete this topic MENINGOCOCCAL VACCINES (ACWY) Aged Out No longer eligible based on patient's age to complete this topic MENINGOCOCCAL VACCINES (B) Aged Out N o longer eligible based on patient's age to complete this topic Medical Devices Not on file Insurance MEDICARE REPLACEMENT MEDICARE REPLACEMENT [facility] MEDICARE REPLACEMENT MEDICARE REPLACEMENT MEDICARE REPLACEMENT MEDICARE REPLACEMENT MEDICARE REPLACEMENT MEDICARE REPLACEMENT MEDICARE REPLACEMENT Care Teams Auto Parts Handler Relationship Specialty Start Date End Date Kae Ravi [place] [place] [address] PCP - General Internal Medicine 12/05/21 Additional Source Comments The information contained in this document represents components of the legal health record. It is not the complete legal health record.[facility]
[2025-10-06 08:09] VITALS: BP 107/55; PULSE 89; RESP 20; O2SAT 94
[2025-10-06 08:11] LABS: MANUAL DIFF FLAG NO
[2025-10-06 08:15] LABS: OBS Int Ctl Valid YES; OBS1 POSITIVE (NEGATIVE)
[2025-10-06 08:17] LABS: Hematocrit 31.3 % (37.0-47.0); Hemoglobin 10.5 g/dl (12.0-16.0); Imm Gran Abs Auto 0.04 X10*3/uL (0.00-0.03); Imm Gran Pct Auto 0.5 % (0.0-0.4); Lymphocytes Absolute Auto 1.6 X10*3/uL (1.2-4.9); Mean Corpuscular HGB Conc 33.5 g/dl (31.0-35.0); Mean Corpuscular Hemoglobin 30.8 pg (27.0-33.0); Mean Corpuscular Volume 91.8 fL (80.0-98.0); NRBC Abs Auto 0.000 X10*3/uL (0.0-0.012); NRBC Pct Auto 0.0 /100WBC (0.0-0.2); Platelet Count 238 X10*3/uL (160-400); Red Blood Count 3.41 X10*6/uL (4.20-5.50); White Blood Count 7.9 X10*3/uL (4.8-10.8)
[2025-10-06 08:27] LABS: INTERNATIONAL NORM RATIO 1.1 (0.9-1.1); Prothrombin Time 13.5 SEC (11.2-13.5)
[2025-10-06 08:29] LABS: Partial Thromboplastin Time 30.5 SEC (26.7-34.1)
[2025-10-06 08:36] LABS: Alanine Aminotransferase 9 U/L (0-31); Albumin Level 3.5 g/dL (3.5-5.0); Alkaline Phosphatase 75 U/L (39-117); Anion Gap 11 (12-20); Aspartate Amino Transferase 18 U/L (5-31); Blood Urea Nitrogen 18 mg/dL (9-16); Calcium 8.8 mg/dL (8.4-10.2); Carbon Dioxide 26 mmol/L (22-29); Chloride 110 mmol/L (96-108); Creatinine Clr Calc Pharmacy 58.3; Estimated Glomerular Filt Rate > 60; Potassium 4.1 mmol/L (3.3-5.1); Sodium 143 mmol/L (135-145); Total Protein 5.5 g/dL (6.5-8.0)
[2025-10-06] MEDS: iohexoL 350 MG/ML 100 ML INFUS..BTL IV (08:50)
[2025-10-06 10:02] VITALS: BP 133/58; PULSE 78; RESP 15; TEMP 36.8; O2SAT 98
--- NOTE | 2025-10-06 12:02 | P.HPHOSP_ITS ---
History of Present Illness Date of Service: 10/06/25 Attending physician on admission: Julio Salcido Chief Complaint: rectal bleeding This is an 80-year-old female who presents to the emergency department with rectal bleeding. She states yesterday she started having left lower quadrant crampy abdominal pain. This was followed by episodes of red blood some were mixed with clots. She reports having approximately 10 episodes throughout the night. She denies any associated fever or chills; there has been no vomiting. In the emergency department her H/H was lower than previous at 10.5/31.3 in her stool occult blood was positive. A CT scan of the abdomen and pelvis was obtained which showed severe diverticulosis with possible mild diverticulitis. She has no known history of diverticulitis, she has never had a colonoscopy before. Her last episode of bleeding was prior to arrival in the emergency department. She denies any dizziness, shortness of breath or chest pain. She has not had any previous episodes of bleeding. She take aspirin 81 mg daily and prn ibuprofen. She was treated with IV fluid and the decision was made to admit her to the hospital for further management. Review of Systems 2 Review of Systems: Yes all other systems are reviewed and are negative Constitutional: Constitutional: Denies chills and Denies fever(s) Cardiovascular: Cardiovascular: Denies chest pain and Denies dyspnea Respiratory: Respiratory: Denies cough and Denies dyspnea Gastrointestinal: Gastrointestinal: Reports abdominal pain, Reports hematochezia, Denies nausea and Denies vomiting [facility] Medical History Nephrolithiasis Lung nodule Hematuria Obese Eye exam, routine Diabetes HTN (hypertension) Family History Father No problems noted. Mother HTN (hypertension) Mental health disorder Surgical History History of ankle surgery Social History [facility]: [facility] Alcohol intake: current Alcohol intake frequency: 0-2 drinks per day Alcohol type: wine Patient Tobacco Use Status: Former Tobacco user (24 years ago) Smoked in Last 30 Days: No e-Cigarette/Vaping Use: Never Used Second Hand Smoke Exposure: No Use of substances other than those prescribed or required for medical reasons: No Advance Directives: Yes Advance Directives Information Provided: Yes Advance Directives on File: No Do you have a plan to hurt others: No Plan service: No Current occupational status: retired Current occupational exposures/hazards: No Cognitive needs: No Hearing needs: No Vision needs: Yes Meds Allergies Allergy/AdvReac Type Severity Reaction Status Date / Time penicillin V Allergy Unknown unknown Verified 10/06/25 07:18 oxycodone Allergy nausea Verified 10/06/25 07:18 dizziness alendronate sodium (From AdvReac Intermediate Weakness, Verified 10/06/25 07:18 Fosamax) jelly legs lisinopril AdvReac Unknown increased Verified 10/06/25 07:18 urination Active Medications: Current Medications Sodium Chloride (Ns) 1,000 mls @ 100 mls/hr IVCONT .Q10H CARLITO Last Admin: 10/06/25 08:09 Dose: 100 mls/hr Physical Exam 2 Vital Signs and Narrative: Vital Signs: Last Vital Signs Temp 98.3 F 10/06/25 10:02 Pulse 78 10/06/25 10:02 Resp 15 10/06/25 10:02 BP 133/58 L 10/06/25 10:02 Pulse Ox 98 10/06/25 10:02 O2 Del Method Room Air 10/06/25 10:02 BMI result Body Mass Index 38.3 Const: General: cooperative, comfortable, alert and awake Nutritional Appearance: overweight Orientation/consciousness: patient oriented x3 Resp: Effort & Inspection: normal respiratory effort, able to speak in complete sentences, no respiratory distress and no use of accessory muscles A uscultation: clear to auscultation bilaterally Cardio: Rate: regular rate GI: Other: well healed incision, ventral hernia nontender no distention; mild tenderness LLQ Inspection: No distended Palpation (GI): Soft to palpation Neuro: General: patient oriented x3, moves all extremities and CN's II-XI intact bilaterally Results Labs 10/06/25 08:07 10/06/25 08:07 Labs: Laboratory Results - last 24 hr 10/06/25 10/06/25 08:07 09:01 MCV 91.8 MCH 30.8 MCHC 33.5 RDW 13.3 Plt Count 238 MPV 10.8 Immature Gran % (Auto) 0.5 H Neut % (Auto) 70.1 Lymph % (Auto) 20.7 Davis % (Auto) 6.7 Eos % (Auto) 1.4 Baso % (Auto) 0.6 Lymph # (Auto) 1.6 Davis # (Auto) 0.5 Eos # (Auto) 0.1 Baso # (Auto) 0.1 Abs Immat Gran (auto) 0.04 H Absolute Neuts (auto) 5.6 Absolute Nucleated RBC 0.000 Nucleated RBC % (auto) 0.0 PT 13.5 INR 1.1 APTT 30.5 Hold Blue Top SEE NOTE Anion Gap 11 L Estim Creat Clear Calc 58.3 Estimated GFR > 60 Random Glucose 177 H Calcium 8.8 D Total Bilirubin 0.6 AST 18 ALT 9 Alkaline Phosphatase 75 Total Protein 5.5 L Albumin 3.5 Stool Occult Blood POSITIVE Blood Type O Positive Antibody Screen NEGATIVE Imaging Radiologist's Impressions: Impressions Abdomen/Pelvis CT 10/06/25 08:47 IMPRESSION: Severe diverticulosis and question mild diverticulitis of the sigmoid colon. Large complex ventral and supraumbilical hernias containing fat, small and large bowel. No evidence of obstruction. Posterior gastric diverticulum unchanged. Left renal stones. Largest stone or cluster of stones in upper pole calyx measures 10 x 20 cm. Moderate left hydronephrosis and renal cortical thinning suggestive of long-standing obstruction. Question left UPJ obstruction. Stable bilateral low-attenuation renal lesions probably representing cysts. Heterogeneous right lower lobe nodule. Solid component appears increased and groundglass component appears decreased compared to August [address] Cannot exclude neoplastic process and chest CT follow-up recommended. Electronically signed by: Ludy Cespedes MD 10/06/2025 09:42 AM [facility] Assessment and Plan (1) Rectal bleeding: Status: Acute Plan This is an 80-year-old female with a history of diabetes, HTN, HLD, h/o uterine CA s/p ANUJA, BSO in 2020 who presents to the emergency department with rectal bleeding BRBPR probable lower GI bleed due to diverticulosis no indication for blood transfusion at this time, follow H/H closely IVF fluid GI consult hold ASA, avoid NSAID, AC repeat H/H this evening DM NPO for now SSI, POCs hold oral meds HTN hold bp meds for soft bp and GI bleed HLD hold statin dvt ppx - mechanical devices. Avoid chemoprophylaxis in the setting of rectal bleeding Quality Stroke Does the patient have a stroke diagnosis?: No VTE Prior VTE?: No VTE Risk Level:: Medical - moderate - high VTE Device Contraindication: N/A - Device Ordered VTE Drug Contraindication: Treatment Not Indicated
[2025-10-06] MEDS: Lactated Ringers 1,000 ML 100 ML IVCONT (12:47)
--- NOTE | 2025-10-06 13:03 | PHA.MEDREC ---
Addendum entered by Sumi Armando RPh 10/06/25 13:55: MED REC REVIEWED BY [facility]. Patient confirmed to Sushma that she is taking lantus 15 units at bedtime and metformin 1000 mg bid. Original Note: Pharmacy Consult ? Medication Reconciliation Pharmacy has completed the medication reconciliation. Patient was able to name all of her medications . Patent states she is no longer taking Meclizeine 25 mg. Patient last had her medications last night.
[2025-10-06 17:07] LABS: Glucose, Whole Blood 101 mg/dL (60-115)
[2025-10-06 18:23] VITALS: BMI 38.3
[2025-10-06 18:25] LABS: Hematocrit 28.6 % (37.0-47.0); Hemoglobin 9.6 g/dl (12.0-16.0)
[2025-10-06 18:38] VITALS: BP 140/67; PULSE 77; RESP 18; TEMP 36.3; O2SAT 98
--- NOTE | 2025-10-06 19:19 | PM.EVENT ---
Event Note Date of Service: 10/06/25 Event Note: GI Consult-Full note dictated Imp: Acute and painless lower GI bleed yesterday with significant lessening today. Her abdominal exam is benign. She has had a significant drop in her Hgb, although a F/U Hgb was fairly stable. She has never had a colonoscopy. Diff dx: Diverticular bleed. I think ischemic colitis and neoplasm would be less likely. Rec: Clear liquids over the weekend and Colonoscopy on Thursday, 10/09. Full consent is obtained for this, including risks of bleeding and perforation. I will place the prep orders. F/U Hgb's and transfuse PRN. If she develops recurrent significant and active GI bleeding I would recommend obtaining a Stat CTA of the Abdomen to try to delineate a site of bleeding that might be amenable to IR intervention. D/W patient in detail and she is comfortable with this plan. Please call if issues over the weekend. Thanks Time Spent With Patient Time: Total time managing care of this patient today ____ minutes.
[2025-10-06 19:33] VITALS: BP 137/66; PULSE 71; RESP 18; TEMP 36.8; O2SAT 96
[2025-10-06 20:15] LABS: Glucose, Whole Blood 79 mg/dL (60-115)
[2025-10-06] MEDS: Flu Vacc TS2025-26(6mo up)/PF 0.5 ML SYRINGE IM (20:26)
[2025-10-07] MEDS: Lactated Ringers 1,000 ML 100 ML IVCONT ×3 (01:45→21:57)
[2025-10-07 02:57] VITALS: BP 145/66; PULSE 84; RESP 18; TEMP 36.6; O2SAT 99
--- NOTE | 2025-10-07 06:58 | CONS_ITS ---
DATE OF SERVICE: 10/06/2025 REASON FOR CONSULTATION: Rectal bleeding. HISTORY OF PRESENT ILLNESS: This has been obtained from the patient and the medical record. The patient is an 80-year-old female who was in her usual state of health up until yesterday afternoon when she developed the onset of painless rectal bleeding. She describes the urge to have a bowel movement, but noticed only blood in the toilet bowl. She describes this as bright red and with some blood clots. She has never had this before. Prior to yesterday she describes a normal bowel pattern and no particular GI symptoms. She describes multiple episodes of bleeding over the course of yesterday. She came to the ER and since then has had only a couple of smaller amounts of bleeding. She continues to deny any abdominal pain. Vital signs have been stable and she has been afebrile. She denies any upper GI complaints such as heartburn, dysphagia, anorexia, or early satiety. Again prior to yesterday, she was not having any bleeding or problem with her bowel movements. She reports that she has never had a colonoscopy. She denies any known family history of colorectal cancer. She does not use any chronic blood thinners, but is on a low-dose aspirin 81 mg, and also has been using some ibuprofen recently due to a painful wrist injury. MEDICATIONS: At home included amlodipine, Lantus, metformin, olmesartan. Her medications here in the hospital include acetaminophen, Tums p.r.n., insulin, melatonin, milk of magnesia. PAST MEDICAL HISTORY: Complete hysterectomy. She denies any other surgeries. She describes diabetes and hypertension, but denies any history of heart disease, stroke, or lung disease. SOCIAL HISTORY: She is single and lives by herself. She does not smoke nor use any significant amounts of alcohol. FAMILY HISTORY: Noncontributory. PHYSICAL EXAMINATION: GENERAL: She appears well. SKIN: Warm and dry. She is somewhat pale. Anicteric sclerae. Moist mucous membranes. NECK: Supple. CARDIAC: Normal S1, S2. ABDOMEN: Soft, nondistended, nontender without organomegaly or mass. EXTREMITIES: No edema. LABORATORY DATA: Her hemoglobin last April was 14.5. Hemoglobin this morning was 10.5 and repeat this evening was 9.6. Normal MCV. Platelets 238,000. PT was 13.5 with INR of 1.1. She had normal chemistries and renal function. BUN was only 18. Normal LFTs. Stool was Hemoccult positive. She did have a CT of the abdomen and pelvis earlier today. The report describes significant diverticular disease as well as a question of some mild diverticulitis of the sigmoid colon. Kidney stones were noted as well. She has abdominal wall hernias as well. IMPRESSION: Given the patient's clinical history, this seems consistent with a diverticular bleed given its painless nature and description of bright red blood. I doubt this represents anything such as a neoplasm. Another possibility, given some risk factors for vascular disease would be that of ischemic colitis. At this point, she appears quite stable and her abdominal exam is benign. Therefore, I would recommend we proceed with a colonoscopy during this admission. I advised her since she has never had a colonoscopy, it would be very important to do that given the onset of her bleeding, so as to be sure we are not dealing with anything such as a colon cancer or significant polyp. The procedure will be done October 09. As such, over the weekend she will stay on clear liquids and then do her prep on October 08. Full consent has been obtained from her for this, including risks of bleeding and perforation. In the meantime I would continue to follow her hemoglobin closely as you are doing. I would continue to follow her hemoglobins and transfuse her as needed. If she develops recurrent significant and active GI bleeding, I would recommend obtaining a stat CT angiogram of the abdomen to try to delineate a site of bleeding that might be amenable to interventional radiology intervention. This has all been discussed in detail with the patient and she is comfortable with the plan. MD GASTON Rae/BRITTA / [phone] MINA
[2025-10-07 07:41] LABS: Glucose, Whole Blood 119 mg/dL (60-115)
[2025-10-07 07:49] VITALS: BP 139/63; PULSE 84; RESP 18; TEMP 36.4; O2SAT 95
[2025-10-07 08:37] LABS: Hematocrit 27.3 % (37.0-47.0); Hemoglobin 9.2 g/dl (12.0-16.0); Mean Corpuscular HGB Conc 33.7 g/dl (31.0-35.0); Mean Corpuscular Hemoglobin 31.0 pg (27.0-33.0); Mean Corpuscular Volume 91.9 fL (80.0-98.0); NRBC Abs Auto 0.000 X10*3/uL (0.0-0.012); NRBC Pct Auto 0.0 /100WBC (0.0-0.2); Platelet Count 205 X10*3/uL (160-400); Red Blood Count 2.97 X10*6/uL (4.20-5.50); White Blood Count 6.3 X10*3/uL (4.8-10.8)
[2025-10-07 08:56] LABS: Anion Gap 13 (12-20); Blood Urea Nitrogen 12 mg/dL (9-16); Calcium 8.8 mg/dL (8.4-10.2); Carbon Dioxide 24 mmol/L (22-29); Chloride 112 mmol/L (96-108); Creatinine Clr Calc Pharmacy 76.2; Estimated Glomerular Filt Rate > 60; Potassium 4.0 mmol/L (3.3-5.1); Sodium 145 mmol/L (135-145)
--- NOTE | 2025-10-07 09:34 | MHC.CM.PN ---
HILAR[facility] DELIVERED. PATIENT LIVES IN A HOME ALONE. INDEPENDENT W/ ALL CARE. USES CANE PRN, MOSTLY AT NIGHT. PCP KEYA YOO MD REPORTS HCP IS DAUGHTER, ROULA. COPY REQUESTED. DP: RETURN HOME, CAR IN [facility] LOT FOR SELF TRANSPORT IF SAFE TO DO SO. WOULD BE OPEN TO PT SERVICES IF RECOMMENDED, NO PREFERENCE TO AGENCY. CM WILL CONTINUE TO FOLLOW.
[2025-10-07 11:49] LABS: Glucose, Whole Blood 187 mg/dL (60-115)
--- NOTE | 2025-10-07 15:04 | P.PNIM_ITS ---
Subjective Subjective Date of Service: 10/07/25 Interval History: Still complains of poor appetite. Tolerating clears. Hemoglobin continues to trend downward despite no evidence of active bleed Review of Systems Denies chest pain Denies shortness of breath Denies vomiting diarrhea ; admits intermittent nausea Denies fever chills Physical Exam 2 Vital Signs: Vital Signs: Last Vital Signs Temp 97.6 F 10/07/25 07:49 Pulse 84 10/07/25 07:49 Resp 18 10/07/25 07:49 BP 139/63 10/07/25 07:49 Pulse Ox 95 10/07/25 07:49 O2 Del Method Room Air 10/07/25 07:49 BMI result Body Mass Index 38.3 Const: Other: Awake alert no acute distress Resp: Other: Clear to auscultation bilaterally no rales rhonchi or wheezes Cardio: Other: No S4; positive S1-S2; no S3 murmurs rubs or gallops GI: Other: Soft nontender nondistended normoactive bowel sounds Extrem: Other: No edema bilaterally Objective Data Active Medications Acetaminophen (Acetaminophen 325 Mg Tablet) 650 mg PO Q6H PRN PRN Reason: Pain, Mild 1-3,fever,headache Calcium Carbonate (Calcium Carbonate 750 Mg Tab.Chew) 750 mg PO Q4H PRN PRN Reason: Heartburn Dextrose (Dextrose 50 % 25 Gm/50 Ml Syringe) 25 gm IVPUSH Q15M PRN; Protocol PRN Reason: per Hypoglycemia Standing Ord. Glucose (Glucose Gel 15 Gm Gel..Gram.) 15 gm PO Q15M PRN; Protocol PRN Reason: per Hypoglycemia Standing Ord. Lactated Ringer's (Lr) 1,000 mls @ 100 mls/hr IVCONT .Q10H [facility] Last Admin: 10/07/25 11:39 Dose: 100 mls/hr Documented By: CORTEZ Insulin Human Lispro (Insulin Lispro 100 Unit/Ml 3 Ml Vial) 0 unit SUBCUT QIDACHS [facility]; Protocol Last Admin: 10/07/25 12:00 Dose: 2 unit Documented By: CORTEZ Magnesium Hydroxide (Milk Of Magnesia 30 Ml Oral.Susp) 30 ml PO DAILY PRN PRN Reason: Constipation Melatonin (Melatonin 3 Mg Tablet) 6 mg PO BEDTIME PRN PRN Reason: Insomnia Sodium Chloride (0.9 % Sodium Chloride Flush 3 Ml Syringe) 3 ml IVFLUSH QSHIFT [facility] Last Admin: 10/07/25 08:39 Dose: Not Given Documented By: CORTEZ Non-Admin Reason: IV Running Labs 10/07/25 08:30 10/07/25 08:30 Labs: Laboratory Results - last 24 hr 10/06/25 10/06/25 10/07/25 17:01 20:10 07:32 MCV MCH MCHC RDW Plt Count MPV Absolute Nucleated RBC Nucleated RBC % (auto) Anion Gap Estim Creat Clear Calc Estimated GFR POC Glucose 101 79 119 H Random Glucose Calcium 10/07/25 10/07/25 08:30 11:46 MCV 91.9 MCH 31.0 MCHC 33.7 RDW 13.3 Plt Count 205 MPV 10.1 Absolute Nucleated RBC 0.000 Nucleated RBC % (auto) 0.0 Anion Gap 13 Estim Creat Clear Calc 76.2 Estimated GFR > 60 POC Glucose 187 H Random Glucose 122 H Calcium 8.8 Assessment and Plan (1) Rectal bleeding: Status: Acute (2) DMII (diabetes mellitus, type 2): Status: Acute Plan This is an 80-year-old female with a history of diabetes, HTN, HLD, h/o uterine CA s/p ANUJA, BSO in 2020 who presents to the emergency department with rectal bleeding 1.BRBPR.. Likely diverticular bleed -hemoglobin drifting downward however stable at this time; no indication for transfusion -continue clear liquids as per GI; colonoscopy 10/09/25 -follow daily hemoglobin.. Transfused for hemoglobin less than 7 -high risk for outpatient failure given slow decline in hemoglobin without active bleeding. 2. Diabetes type 2 -acceptable control on current therapy -lispro correctional scale -hold oral agents at this time add back when clinically appropriate 3.HTN -acceptable control off therapy -add back when appropriate DNR DNI Pneumatics Requires ongoing hospitalization to monitor hemoglobin and signs of lower GI bleed. We will need colonoscopy prior to discharge Quality Stroke Does the patient have a stroke diagnosis?: No VTE Prior VTE?: No VTE Risk Level:: Medical - moderate - high VTE Device Contraindication: N/A - Device Ordered VTE Drug Contraindication: Treatment Not Indicated
[2025-10-07 15:06] VITALS: BP 135/63; PULSE 84; RESP 17; TEMP 36; O2SAT 96
[2025-10-07 16:34] LABS: Glucose, Whole Blood 119 mg/dL (60-115)
--- NOTE | 2025-10-07 18:58 | MHC.SHP ---
Pre-Procedural Eval Section A - 24 Hr Update-Section A only Date of Service: 10/09/25 The patient is an INPATIENT: Yes The patient has been examined within 24 hours of the surgical procedure. The History & Physical has been completed within 30 days and I have reviewed it.: Yes Section B - Complete if H&P > 30 days Chief Complaint: GI bleeding Allergies: Allergies Allergy/AdvReac Type Severity Reaction Status Date / Time penicillin V Allergy Unknown unknown Verified 10/06/25 07:18 oxycodone Allergy nausea Verified 10/06/25 07:18 dizziness alendronate sodium (From AdvReac Intermediate Weakness, Verified 10/06/25 07:18 Fosamax) jelly legs lisinopril AdvReac Unknown increased Verified 10/06/25 07:18 urination Plan I have reviewed the history and physical and performed a pertinent physical examination on my patient. No changes have occurred unless specified. Time Spent With Patient Time: Total time managing care of this patient today ____ minutes.
[2025-10-07 19:10] VITALS: BP 142/65; PULSE 85; RESP 18; TEMP 37; O2SAT 96
[2025-10-07 20:08] LABS: Glucose, Whole Blood 178 mg/dL (60-115)
[2025-10-08 03:59] VITALS: BP 126/60; PULSE 77; RESP 18; TEMP 36.3; O2SAT 91
[2025-10-08] MEDS: Lactated Ringers 1,000 ML 100 ML IVCONT ×2 (06:30→22:21)
[2025-10-08 06:33] LABS: MANUAL DIFF FLAG NO
[2025-10-08 06:36] LABS: Hematocrit 28.2 % (37.0-47.0); Hemoglobin 9.2 g/dl (12.0-16.0); Imm Gran Abs Auto 0.03 X10*3/uL (0.00-0.03); Imm Gran Pct Auto 0.6 % (0.0-0.4); Lymphocytes Absolute Auto 1.5 X10*3/uL (1.2-4.9); Mean Corpuscular HGB Conc 32.6 g/dl (31.0-35.0); Mean Corpuscular Hemoglobin 30.5 pg (27.0-33.0); Mean Corpuscular Volume 93.4 fL (80.0-98.0); NRBC Abs Auto 0.000 X10*3/uL (0.0-0.012); NRBC Pct Auto 0.0 /100WBC (0.0-0.2); Platelet Count 214 X10*3/uL (160-400); Red Blood Count 3.02 X10*6/uL (4.20-5.50); White Blood Count 4.9 X10*3/uL (4.8-10.8)
[2025-10-08 07:27] LABS: Alanine Aminotransferase 9 U/L (0-31); Albumin Level 3.4 g/dL (3.5-5.0); Alkaline Phosphatase 73 U/L (39-117); Anion Gap 11 (12-20); Aspartate Amino Transferase 21 U/L (5-31); Blood Urea Nitrogen 8 mg/dL (9-16); Calcium 8.8 mg/dL (8.4-10.2); Carbon Dioxide 26 mmol/L (22-29); Chloride 110 mmol/L (96-108); Creatinine Clr Calc Pharmacy 78.6; Estimated Glomerular Filt Rate > 60; Potassium 4.0 mmol/L (3.3-5.1); Sodium 143 mmol/L (135-145); Total Protein 5.5 g/dL (6.5-8.0)
[2025-10-08 07:30] LABS: Glucose, Whole Blood 140 mg/dL (60-115)
[2025-10-08 07:44] VITALS: BP 133/63; PULSE 80; RESP 18; TEMP 36.4; O2SAT 95
[2025-10-08 11:27] LABS: Glucose, Whole Blood 181 mg/dL (60-115)
--- NOTE | 2025-10-08 11:50 | HO.PM.IMPN ---
Subjective Subjective Date of Service: 10/08/25 Interval History: No acute issues overnight; no stool/bright red blood per rectum Review of Systems Denies chest pain Denies shortness of breath Denies vomiting diarrhea ; admits intermittent nausea Denies fever chills Physical Exam Vital Signs: Vital Signs: Last Vital Signs Temp 97.6 F 10/08/25 07:44 Pulse 80 10/08/25 07:44 Resp 18 10/08/25 07:44 BP 133/63 10/08/25 07:44 Pulse Ox 95 10/08/25 07:44 O2 Del Method Room Air 10/08/25 07:44 BMI result Body Mass Index 38.3 Const: Other: Awake alert no acute distress Resp: Other: Clear to auscultation bilaterally no rales rhonchi or wheezes Cardio: Other: No S4; positive S1-S2; no S3 murmurs rubs or gallops GI: Other: Soft nontender nondistended normoactive bowel sounds Extrem: Other: No edema bilaterally Objective Data Active Medications Acetaminophen (Acetaminophen 325 Mg Tablet) 650 mg PO Q6H PRN PRN Reason: Pain, Mild 1-3,fever,headache Bisacodyl (Bisacodyl 5 Mg Tablet.) 10 mg PO ONCE@1500 ONE Stop: 10/08/25 15:01 Bisacodyl (Bisacodyl 5 Mg Tablet.) 10 mg PO ONCE@1900 ONE Stop: 10/08/25 19:01 Calcium Carbonate (Calcium Carbonate 750 Mg Tab.Chew) 750 mg PO Q4H PRN PRN Reason: Heartburn Dextrose (Dextrose 50 % 25 Gm/50 Ml Syringe) 25 gm IVPUSH Q15M PRN; Protocol PRN Reason: per Hypoglycemia Standing Ord. Glucose (Glucose Gel 15 Gm Gel..Gram.) 15 gm PO Q15M PRN; Protocol PRN Reason: per Hypoglycemia Standing Ord. Lactated Ringer's (Lr) 1,000 mls @ 100 mls/hr IVCONT .Q10H [facility] Last Admin: 10/08/25 06:30 Dose: 100 mls/hr Documented By: JAYDON Insulin Human Lispro (Insulin Lispro 100 Unit/Ml 3 Ml Vial) 0 unit SUBCUT QIDACHS [facility]; Protocol Last Admin: 10/08/25 07:57 Dose: Not Given Documented By: CORTEZ Non-Admin Reason: No Insulin Coverage Magnesium Hydroxide (Milk Of Magnesia 30 Ml Oral.Susp) 30 ml PO DAILY PRN PRN Reason: Constipation Melatonin (Melatonin 3 Mg Tablet) 6 mg PO BEDTIME PRN PRN Reason: Insomnia Polyethylene Glycol/Electrolytes (Peg 3350/Na Sulf,Bicarb,Cl/Kcl 4,000 Ml Soln.Recon) 4,000 ml PO ONCE ONE Stop: 10/08/25 16:01 Sodium Biphosphate/Sodium Phosphate (Sodium Phosphate,[facility]-Dibasic 133 Ml Enema) 133 ml MI ONCE PRN PRN Reason: Poor Colonoscopy Prep Results Sodium Chloride (0.9 % Sodium Chloride Flush 3 Ml Syringe) 3 ml IVFLUSH QSHIFT [facility] Last Admin: 10/08/25 08:46 Dose: Not Given Documented By: CORTEZ Non-Admin Reason: IV Running Labs 10/08/25 06:20 10/08/25 06:20 Labs: Laboratory Results - last 24 hr 10/07/25 10/07/25 10/07/25 11:46 16:28 20:05 MCV MCH MCHC RDW Plt Count MPV Immature Gran % (Auto) Neut % (Auto) Lymph % (Auto) [facility] % (Auto) Eos % (Auto) Baso % (Auto) Lymph # (Auto) [facility] # (Auto) Eos # (Auto) Baso # (Auto) Abs Immat Gran (auto) Absolute Neuts (auto) Absolute Nucleated RBC Nucleated RBC % (auto) Anion Gap Estim Creat Clear Calc Estimated GFR POC Glucose 187 H 119 H 178 H Fasting Glucose Calcium Total Bilirubin AST ALT Alkaline Phosphatase Total Protein Albumin 10/08/25 10/08/25 10/08/25 06:20 07:21 11:17 MCV 93.4 MCH 30.5 MCHC 32.6 RDW 13.2 Plt Count 214 MPV 10.7 Immature Gran % (Auto) 0.6 H Neut % (Auto) 55.5 Lymph % (Auto) 31.0 [facility] % (Auto) 9.5 Eos % (Auto) 2.8 Baso % (Auto) 0.6 Lymph # (Auto) 1.5 [facility] # (Auto) 0.5 Eos # (Auto) 0.1 Baso # (Auto) 0.0 Abs Immat Gran (auto) 0.03 Absolute Neuts (auto) 2.7 Absolute Nucleated RBC 0.000 Nucleated RBC % (auto) 0.0 Anion Gap 11 L Estim Creat Clear Calc 78.6 Estimated GFR > 60 POC Glucose 140 H 181 H Fasting Glucose 140 H Calcium 8.8 Total Bilirubin 0.4 AST 21 ALT 9 Alkaline Phosphatase 73 Total Protein 5.5 L Albumin 3.4 L Assessment and Plan (1) Rectal bleeding: Status: Acute (2) DMII (diabetes mellitus, type 2): Status: Acute (3) HTN (hypertension): Status: Acute Plan This is an 80-year-old female with a history of diabetes, HTN, HLD, h/o uterine CA s/p ANUJA, BSO in 2020 who presents to the emergency department with rectal bleeding 1.BRBPR.. (none since admission) -hemoglobin stable -continue clear liquids as per GI; colonoscopy 10/09/25...NPO after midnoc -follow daily hemoglobin.. Transfused for hemoglobin less than 7 -high risk for outpatient failure given slow decline in hemoglobin without active bleeding. 2. Diabetes type 2 -acceptable control on current therapy -lispro correctional scale -hold oral agents at this time add back when clinically appropriate 3.HTN -acceptable control off therapy -add back when appropriate DNR DNI Pneumatics Requires ongoing hospitalization to monitor hemoglobin and signs of lower GI bleed. We will need colonoscopy prior to discharge Quality Stroke Does the patient have a stroke diagnosis?: No VTE Prior VTE?: No VTE Risk Level:: Medical - moderate - high VTE Device Contraindication: N/A - Device Ordered VTE Drug Contraindication: Treatment Not Indicated
[2025-10-08 15:14] VITALS: BP 140/63; PULSE 76; RESP 18; TEMP 36.2; O2SAT 97
[2025-10-08 16:24] LABS: Glucose, Whole Blood 150 mg/dL (60-115)
[2025-10-08] MEDS: PEG 3350/Na Sulf,Bicarb,Cl/KCL 4,000 ML SOLN.RECON 4000 ML PO (17:09)
[2025-10-08 20:00] VITALS: BP 136/65; PULSE 85; RESP 18; TEMP 36.1; O2SAT 98
[2025-10-08 20:34] LABS: Glucose, Whole Blood 133 mg/dL (60-115)
[2025-10-09] MEDS: 0.9 % Sodium Chloride Flush 3 ML SYRINGE IVFLUSH (00:03)
[2025-10-09 04:00] VITALS: BP 147/67; PULSE 80; RESP 18; TEMP 36.2; O2SAT 93
[2025-10-09 06:26] LABS: MANUAL DIFF FLAG NO
[2025-10-09 06:42] LABS: Hematocrit 29.4 % (37.0-47.0); Hemoglobin 9.7 g/dl (12.0-16.0); Imm Gran Abs Auto 0.03 X10*3/uL (0.00-0.03); Imm Gran Pct Auto 0.5 % (0.0-0.4); Lymphocytes Absolute Auto 1.9 X10*3/uL (1.2-4.9); Mean Corpuscular HGB Conc 33.0 g/dl (31.0-35.0); Mean Corpuscular Hemoglobin 30.8 pg (27.0-33.0); Mean Corpuscular Volume 93.3 fL (80.0-98.0); NRBC Abs Auto 0.000 X10*3/uL (0.0-0.012); NRBC Pct Auto 0.0 /100WBC (0.0-0.2); Platelet Count 238 X10*3/uL (160-400); Red Blood Count 3.15 X10*6/uL (4.20-5.50); White Blood Count 6.5 X10*3/uL (4.8-10.8)
[2025-10-09 06:51] LABS: Blood Urea Nitrogen 7 mg/dL (9-16); Calcium 8.8 mg/dL (8.4-10.2); Creatinine Clr Calc Pharmacy 79.8; Estimated Glomerular Filt Rate > 60
[2025-10-09 07:01] LABS: Anion Gap 14 (12-20); Carbon Dioxide 24 mmol/L (22-29); Chloride 110 mmol/L (96-108); Potassium 3.1 mmol/L (3.3-5.1); Sodium 145 mmol/L (135-145)
[2025-10-09 07:22] VITALS: BP 127/61; PULSE 90; RESP 18; TEMP 36.1; O2SAT 97
[2025-10-09 07:27] LABS: Glucose, Whole Blood 142 mg/dL (60-115)
--- NOTE | 2025-10-09 07:49 | HO.ANESPROP2 ---
Documented by User: Nati Carrillo NP 10/09/25 09:19 HPI - Anesthesia Eval Consult details Narrative: 80 yr old female for colonoscopy *DNR/DNI Hypokalemia: K+ 3.1 on 10/09/25, IV potassium being given. Anemia: H/H 9.7/29.4 Anesthesia Pre-Procedure Meds Is the patient on any of the following meds?: GLP1/DPP4 (last dose Jul 2025) PMFSH Active Problems Active Problems: All Active Problems DMII (diabetes mellitus, type 2) (Acute) Rectal bleeding (Acute) Postmenopausal (Acute) Vertigo (Acute) EVANS (dyspnea on exertion) (Acute) Annual physical exam (Acute) Foot callus (Acute) Adenosarcoma (Acute) Endocervical polyp (Acute) Nephrolithiasis (Acute) Lung nodule (Acute) Hematuria (Acute) Obese (Acute) HTN (hypertension) (Acute) Diabetes (Acute) Past Medical History Medical History Nephrolithiasis Lung nodule Hematuria Obese Eye exam, routine Diabetes HTN (hypertension) Family History Family History Father No problems noted. Mother HTN (hypertension) Mental health disorder Surgical History Surgical History Hx of hysterectomy History of ankle surgery Social History Social History Household Members: None Housing: Condominium Do you presently have visiting nurse or other home services: No Alcohol intake: current Alcohol intake frequency: 0-2 drinks per day Alcohol type: wine Patient Tobacco Use Status: Former Tobacco user Tobacco use type: Cigarette e-Cigarette/Vaping Use: Never Used Second Hand Smoke Exposure: No Advance Directives Date on File: 10/06/25 service: No Current occupational status: retired Current occupational exposures/hazards: No Cognitive needs: No Hearing needs: No Vision needs: Yes Meds Allergies Allergy/AdvReac Type Severity Reaction Status Date / Time penicillin V Allergy Unknown unknown Verified 10/06/25 07:18 oxycodone Allergy nausea Verified 10/06/25 07:18 dizziness alendronate sodium (From AdvReac Intermediate Weakness, Verified 10/06/25 07:18 Fosamax) jelly legs lisinopril AdvReac Unknown increased Verified 10/06/25 07:18 urination Active Medications: Current Medications Acetaminophen (Acetaminophen 325 Mg Tablet) 650 mg PO Q6H PRN PRN Reason: Pain, Mild 1-3,fever,headache Calcium Carbonate (Calcium Carbonate 750 Mg Tab.Chew) 750 mg PO Q4H PRN PRN Reason: Heartburn Dextrose (Dextrose 50 % 25 Gm/50 Ml Syringe) 25 gm IVPUSH Q15M PRN; Protocol PRN Reason: per Hypoglycemia Standing Ord. Glucose (Glucose Gel 15 Gm Gel..Gram.) 15 gm PO Q15M PRN; Protocol PRN Reason: per Hypoglycemia Standing Ord. Lactated Ringer's (Lr) 1,000 mls @ 100 mls/hr IVCONT .Q10H [facility] [place] Last Infusion: 10/08/25 22:25 Dose: 100 mls/hr Potassium Chloride (Potassium Chloride/H20) 10 meq in 100 mls @ 100 mls/hr IV Q1H [facility] [place] Stop: 10/09/25 11:29 Insulin Human Lispro (Insulin Lispro 100 Unit/Ml 3 Ml Vial) 0 unit SUBCUT QIDACHS [facility]; Protocol Last Admin: 10/09/25 07:29 Dose: Not Given Magnesium Hydroxide (Milk Of Magnesia 30 Ml Oral.Susp) 30 ml PO DAILY PRN PRN Reason: Constipation Melatonin (Melatonin 3 Mg Tablet) 6 mg PO BEDTIME PRN PRN Reason: Insomnia Sodium Biphosphate/Sodium Phosphate (Sodium Phosphate,[place]-Dibasic 133 Ml Enema) 133 ml [place] ONCE PRN PRN Reason: Poor Colonoscopy Prep Results Sodium Chloride (0.9 % Sodium Chloride Flush 3 Ml Syringe) 3 ml IVFLUSH QSHIFT [facility] [place] [place] Last Admin: 10/09/25 07:03 Dose: Not Given Exam Height,Weight and Vital Signs: Height 5 ft 4 in Weight 101.1 kg Last Vital Signs Temp 96.9 F 10/09/25 07:22 Pulse 90 10/09/25 07:22 Resp 18 10/09/25 07:22 BP 127/61 10/09/25 07:22 Pulse Ox 97 10/09/25 07:22 O2 Del Method Room Air 10/09/25 07:22 Pertinent Lab Results Pertinent Lab Results: Laboratory Tests 10/06/25 10/06/25 10/06/25 08:07 09:01 17:01 WBC 7.9 RBC 3.41 L D Hgb 10.5 L D Hct 31.3 L D MCV 91.8 MCH 30.8 MCHC 33.5 RDW 13.3 Plt Count 238 MPV 10.8 Immature Gran % (Auto) 0.5 H Neut % (Auto) 70.1 Lymph % (Auto) 20.7 [place] % (Auto) 6.7 Eos % (Auto) 1.4 Baso % (Auto) 0.6 Lymph # (Auto) 1.6 [place] # (Auto) 0.5 Eos # (Auto) 0.1 Baso # (Auto) 0.1 Abs Immat Gran (auto) 0.04 H Absolute Neuts (auto) 5.6 Absolute Nucleated RBC 0.000 Nucleated RBC % (auto) 0.0 PT 13.5 INR 1.1 APTT 30.5 Hold Blue Top SEE NOTE Sodium 143 Potassium 4.1 Chloride 110 H Carbon Dioxide 26 Anion Gap 11 L BUN 18 H Creatinine 0.89 Estim Creat Clear Calc 58.3 Estimated GFR > 60 POC Glucose 101 Random Glucose 177 H Fasting Glucose Calcium 8.8 D Total Bilirubin 0.6 AST 18 ALT 9 Alkaline Phosphatase 75 Total Protein 5.5 L Albumin 3.5 Stool Occult Blood POSITIVE Blood Type O Positive Antibody Screen NEGATIVE 10/06/25 10/06/25 10/07/25 18:08 20:10 07:32 WBC RBC Hgb 9.6 L Hct 28.6 L MCV MCH MCHC RDW Plt Count MPV Immature Gran % (Auto) Neut % (Auto) Lymph % (Auto) [place] % (Auto) Eos % (Auto) Baso % (Auto) Lymph # (Auto) [place] # (Auto) Eos # (Auto) Baso # (Auto) Abs Immat Gran (auto) Absolute Neuts (auto) Absolute Nucleated RBC Nucleated RBC % (auto) PT INR APTT Hold Blue Top Sodium Potassium Chloride Carbon Dioxide Anion Gap BUN Creatinine Estim Creat Clear Calc Estimated GFR POC Glucose 79 119 H Random Glucose Fasting Glucose Calcium Total Bilirubin AST ALT Alkaline Phosphatase Total Protein Albumin Stool Occult Blood Blood Type Antibody Screen 10/07/25 10/07/25 10/07/25 08:30 11:46 16:28 WBC 6.3 RBC 2.97 L Hgb 9.2 L Hct 27.3 L MCV 91.9 MCH 31.0 MCHC 33.7 RDW 13.3 Plt Count 205 MPV 10.1 Immature Gran % (Auto) Neut % (Auto) Lymph % (Auto) [place] % (Auto) Eos % (Auto) Baso % (Auto) Lymph # (Auto) [place] # (Auto) Eos # (Auto) Baso # (Auto) Abs Immat Gran (auto) Absolute Neuts (auto) Absolute Nucleated RBC 0.000 Nucleated RBC % (auto) 0.0 PT INR APTT Hold Blue Top Sodium 145 Potassium 4.0 Chloride 112 H Carbon Dioxide 24 Anion Gap 13 BUN 12 Creatinine 0.68 Estim Creat Clear Calc 76.2 Estimated GFR > 60 POC Glucose 187 H 119 H Random Glucose 122 H Fasting Glucose Calcium 8.8 Total Bilirubin AST ALT Alkaline Phosphatase Total Protein Albumin Stool Occult Blood Blood Type Antibody Screen 10/07/25 10/08/25 10/08/25 20:05 06:20 07:21 WBC 4.9 RBC 3.02 L Hgb 9.2 L Hct 28.2 L MCV 93.4 MCH 30.5 MCHC 32.6 RDW 13.2 Plt Count 214 MPV 10.7 Immature Gran % (Auto) 0.6 H Neut % (Auto) 55.5 Lymph % (Auto) 31.0 [place] % (Auto) 9.5 Eos % (Auto) 2.8 Baso % (Auto) 0.6 Lymph # (Auto) 1.5 [place] # (Auto) 0.5 Eos # (Auto) 0.1 Baso # (Auto) 0.0 Abs Immat Gran (auto) 0.03 Absolute Neuts (auto) 2.7 Absolute Nucleated RBC 0.000 Nucleated RBC % (auto) 0.0 PT INR APTT Hold Blue Top Sodium 143 Potassium 4.0 Chloride 110 H Carbon Dioxide 26 Anion Gap 11 L BUN 8 L Creatinine 0.66 Estim Creat Clear Calc 78.6 Estimated GFR > 60 POC Glucose 178 H 140 H Random Glucose Fasting Glucose 140 H Calcium 8.8 Total Bilirubin 0.4 AST 21 ALT 9 Alkaline Phosphatase 73 Total Protein 5.5 L Albumin 3.4 L Stool Occult Blood Blood Type Antibody Screen 10/08/25 10/08/25 10/08/25 11:17 16:20 20:26 WBC RBC Hgb Hct MCV MCH MCHC RDW Plt Count MPV Immature Gran % (Auto) Neut % (Auto) Lymph % (Auto) [place] % (Auto) Eos % (Auto) Baso % (Auto) Lymph # (Auto) [place] # (Auto) Eos # (Auto) Baso # (Auto) Abs Immat Gran (auto) Absolute Neuts (auto) Absolute Nucleated RBC Nucleated RBC % (auto) PT INR APTT Hold Blue Top Sodium Potassium Chloride Carbon Dioxide Anion Gap BUN Creatinine Estim Creat Clear Calc Estimated GFR POC Glucose 181 H 150 H 133 H Random Glucose Fasting Glucose Calcium Total Bilirubin AST ALT Alkaline Phosphatase Total Protein Albumin Stool Occult Blood Blood Type Antibody Screen 10/09/25 10/09/25 05:46 07:24 WBC 6.5 RBC 3.15 L Hgb 9.7 L Hct 29.4 L MCV 93.3 MCH 30.8 MCHC 33.0 RDW 13.2 Plt Count 238 MPV 10.8 Immature Gran % (Auto) 0.5 H Neut % (Auto) 59.7 Lymph % (Auto) 28.5 [place] % (Auto) 8.6 Eos % (Auto) 2.1 Baso % (Auto) 0.6 Lymph # (Auto) 1.9 [place] # (Auto) 0.6 Eos # (Auto) 0.1 Baso # (Auto) 0.0 Abs Immat Gran (auto) 0.03 Absolute Neuts (auto) 3.9 Absolute Nucleated RBC 0.000 Nucleated RBC % (auto) 0.0 PT INR APTT Hold Blue Top Sodium 145 Potassium 3.1 L D Chloride 110 H Carbon Dioxide 24 Anion Gap 14 BUN 7 L Creatinine 0.65 Estim Creat Clear Calc 79.8 Estimated GFR > 60 POC Glucose 142 H Random Glucose Fasting Glucose 126 H Calcium 8.8 Total Bilirubin AST ALT Alkaline Phosphatase Total Protein Albumin Stool Occult Blood Blood Type Antibody Screen Narrative Narrative: EKG 09/2025 Vent. Rate : 86 BPM Atrial Rate : 86 BPM P-R Int : 192 ms QRS Dur : 86 ms QT Int : 394 ms P-R-T Axes : 67 24 70 degrees QTcB Int : 471 ms Normal sinus rhythm Cannot rule out Anterior infarct , age undetermined Abnormal ECG No previous ECGs available ECHO 01/2025 Conclusions: - 1. Normal LV ejection fraction with mild left ventricular hypertrophy with impaired relaxation filling pattern but elevated filling pressures 2. Normal cardiac valvular Dopplers 3. Normal measured RV systolic pressure 4. No gross pericardial effusion Documented by User: Chuy Silva MD 10/09/25 14:13 PMF Past Medical History Medical History Nephrolithiasis Lung nodule Hematuria Obese Eye exam, routine Diabetes HTN (hypertension) Functional capacity: independent ambulation Family History Family History Father No problems noted. Mother HTN (hypertension) Mental health disorder Family history of problems with anesthesia: No Surgical History Surgical History Hx of hysterectomy History of ankle surgery History of Problems with Anesthesia: No Social History Social History Household Members: None Housing: Condominium Do you presently have visiting nurse or other home services: No Alcohol intake: current Alcohol intake frequency: 0-2 drinks per day Alcohol type: wine Patient Tobacco Use Status: Former Tobacco user Tobacco use type: Cigarette e-Cigarette/Vaping Use: Never Used Second Hand Smoke Exposure: No Advance Directives Date on File: 10/06/25 service: No Current occupational status: retired Current occupational exposures/hazards: No Cognitive needs: No Hearing needs: No Vision needs: Yes Meds Allergies Allergy/AdvReac Type Severity Reaction Status Date / Time penicillin V Allergy Unknown unknown Verified 10/06/25 07:18 oxycodone Allergy nausea Verified 10/06/25 07:18 dizziness alendronate sodium (From AdvReac Intermediate Weakness, Verified 10/06/25 07:18 Fosamax) jelly legs lisinopril AdvReac Unknown increased Verified 10/06/25 07:18 urination Exam Exam Date and Time: 10/09/2025 Airway TM Dist: >3cm Neck ROM: Full Denture: Upper Loose/Missing/Broken Teeth: No Heart: normal Lungs: normal Other: normal Assessment and Plan Assessment Anesthesia Assessment: Anesthesia Plan Discussed, Smoking Cess. Discussed and Chart Reviewed Final Anesthetic Review Family History of Problems with Anesthesia: No History of Problems with Anesthesia: No NPO: Yes ASA Class: III Final Preanesthetic Review: No Changes in Pt Med Stat, Meds/Allgs Chart Reviewed, Consent Obtained/Reviewed, Anes Risks/Benef Reviewed and DNR Form (If Appl.) (suspended ) Patient Risk: Intermediate Procedure Risk: Low Anesthetic Plan Anesthetic Plan: MAC: Disposition: Standard PACU
[2025-10-09] MEDS: Potassium Chloride/H20 10 MEQ/100 ML PIGGYBACK 100 MEQ IV (08:03)
[2025-10-09] MEDS: Potassium Chloride ER 20 MEQ TAB.ER.PRT 40 MEQ PO (09:18)
[2025-10-09 11:29] LABS: Glucose, Whole Blood 154 mg/dL (60-115)
[2025-10-09] MEDS: Lactated Ringers 1,000 ML 100 ML IVCONT (12:43)
[2025-10-09 13:27] VITALS: BP 170/70; PULSE 91; RESP 16; TEMP 36.4; O2SAT 97
[2025-10-09 13:42] LABS: Anion Gap 16 (12-20); Blood Urea Nitrogen 6 mg/dL (9-16); Calcium 9.1 mg/dL (8.4-10.2); Carbon Dioxide 20 mmol/L (22-29); Chloride 114 mmol/L (96-108); Creatinine Clr Calc Pharmacy 75.1; Estimated Glomerular Filt Rate > 60; Potassium 4.3 mmol/L (3.3-5.1); Sodium 146 mmol/L (135-145)
[2025-10-09] MEDS: Lactated Ringers 1,000 ML 50 ML IVCONT (13:51)
[2025-10-09 13:53] LABS: Glucose, Whole Blood 128 mg/dL (60-115)
--- NOTE | 2025-10-09 14:14 | P.PNIM_ITS ---
Subjective Subjective Date of Service: 10/09/25 Interval History: No acute issues overnight and. Tolerated prep without issue Review of Systems Denies chest pain Denies shortness of breath Denies vomiting diarrhea ; admits intermittent nausea Denies fever chills Physical Exam 2 Vital Signs: Vital Signs: Last Vital Signs Temp 97.5 F 10/09/25 13:27 Pulse 91 10/09/25 13:27 Resp 16 10/09/25 13:27 BP 170/70 H 10/09/25 13:27 Pulse Ox 97 10/09/25 13:27 O2 Del Method Room Air 10/09/25 13:27 BMI result Body Mass Index 38.3 Const: Other: Awake alert no acute distress Resp: Other: Clear to auscultation bilaterally no rales rhonchi or wheezes Cardio: Other: No S4; positive S1-S2; no S3 murmurs rubs or gallops GI: Other: Soft nontender nondistended normoactive bowel sounds Extrem: Other: No edema bilaterally Objective Data Active Medications Acetaminophen (Acetaminophen 325 Mg Tablet) 650 mg PO Q6H PRN PRN Reason: Pain, Mild 1-3,fever,headache Calcium Carbonate (Calcium Carbonate 750 Mg Tab.Chew) 750 mg PO Q4H PRN PRN Reason: Heartburn Dextrose (Dextrose 50 % 25 Gm/50 Ml Syringe) 25 gm IVPUSH Q15M PRN; Protocol PRN Reason: per Hypoglycemia Standing Ord. Glucose (Glucose Gel 15 Gm Gel..Gram.) 15 gm PO Q15M PRN; Protocol PRN Reason: per Hypoglycemia Standing Ord. Lactated Ringer's (Lr) 1,000 mls @ 100 mls/hr IVCONT .Q10H [facility] Last Infusion: 10/09/25 13:13 Dose: 0 mls/hr Documented By: RON Lactated Ringer's (Lr) 1,000 mls @ 50 mls/hr IVCONT .Q20H [facility] Last Admin: 10/09/25 13:51 Dose: 50 mls/hr Documented By: SANYA Insulin Human Lispro (Insulin Lispro 100 Unit/Ml 3 Ml Vial) 0 unit SUBCUT QIDACHS [facility]; Protocol Last Admin: 10/09/25 11:35 Dose: Not Given Documented By: RON Non-Admin Reason: POC 154, per MD hold 2 units d/t NPO Magnesium Hydroxide (Milk Of Magnesia 30 Ml Oral.Susp) 30 ml PO DAILY PRN PRN Reason: Constipation Melatonin (Melatonin 3 Mg Tablet) 6 mg PO BEDTIME PRN PRN Reason: Insomnia Potassium Chloride (Potassium Chloride Er 20 Meq Tab.Er.Prt) 40 meq PO BID [facility] Last Admin: 10/09/25 09:18 Dose: 40 meq Documented By: RON Sodium Biphosphate/Sodium Phosphate (Sodium Phosphate,[place]-Dibasic 133 Ml Enema) 133 ml GA ONCE PRN PRN Reason: Poor Colonoscopy Prep Results Sodium Chloride (0.9 % Sodium Chloride Flush 3 Ml Syringe) 3 ml IVFLUSH QSHIFT [facility] Last Admin: 10/09/25 07:03 Dose: Not Given Documented By: RON Non-Admin Reason: IV Running Labs 10/09/25 05:46 10/09/25 13:16 Labs: Laboratory Results - last 24 hr 10/08/25 10/08/25 10/09/25 16:20 20:26 05:46 MCV 93.3 MCH 30.8 MCHC 33.0 RDW 13.2 Plt Count 238 MPV 10.8 Immature Gran % (Auto) 0.5 H Neut % (Auto) 59.7 Lymph % (Auto) 28.5 [place] % (Auto) 8.6 Eos % (Auto) 2.1 Baso % (Auto) 0.6 Lymph # (Auto) 1.9 [place] # (Auto) 0.6 Eos # (Auto) 0.1 Baso # (Auto) 0.0 Abs Immat Gran (auto) 0.03 Absolute Neuts (auto) 3.9 Absolute Nucleated RBC 0.000 Nucleated RBC % (auto) 0.0 Anion Gap 14 Estim Creat Clear Calc 79.8 Estimated GFR > 60 POC Glucose 150 H 133 H Random Glucose Fasting Glucose 126 H Calcium 8.8 10/09/25 10/09/25 10/09/25 07:24 11:19 13:16 MCV MCH MCHC RDW Plt Count MPV Immature Gran % (Auto) Neut % (Auto) Lymph % (Auto) [place] % (Auto) Eos % (Auto) Baso % (Auto) Lymph # (Auto) [place] # (Auto) Eos # (Auto) Baso # (Auto) Abs Immat Gran (auto) Absolute Neuts (auto) Absolute Nucleated RBC Nucleated RBC % (auto) Anion Gap 16 Estim Creat Clear Calc 75.1 Estimated GFR > 60 POC Glucose 142 H 154 H Random Glucose 142 H Fasting Glucose Calcium 9.1 10/09/25 13:44 MCV MCH MCHC RDW Plt Count MPV Immature Gran % (Auto) Neut % (Auto) Lymph % (Auto) [place] % (Auto) Eos % (Auto) Baso % (Auto) Lymph # (Auto) [place] # (Auto) Eos # (Auto) Baso # (Auto) Abs Immat Gran (auto) Absolute Neuts (auto) Absolute Nucleated RBC Nucleated RBC % (auto) Anion Gap Estim Creat Clear Calc Estimated GFR POC Glucose 128 H Random Glucose Fasting Glucose Calcium Assessment and Plan (1) Rectal bleeding: Status: Acute (2) DMII (diabetes mellitus, type 2): Status: Acute (3) HTN (hypertension): Status: Acute Plan This is an 80-year-old female with a history of diabetes, HTN, HLD, h/o uterine CA s/p ANUJA, BSO in 2020 who presents to the emergency department with rectal bleeding 1.BRBPR.. (none since admission) -hemoglobin stable -colonoscopy this a.m. -further plans based on forthcoming data 2. Diabetes type 2 -acceptable control on current therapy -lispro correctional scale -hold oral agents at this time add back when clinically appropriate 3.HTN -acceptable control off therapy -add back when appropriate DNR DNI Pneumatics Requires ongoing hospitalization to monitor hemoglobin and signs of lower GI bleed. We will need colonoscopy prior to discharge Quality Stroke Does the patient have a stroke diagnosis?: No VTE Prior VTE?: No VTE Risk Level:: Medical - moderate - high VTE Device Contraindication: N/A - Device Ordered VTE Drug Contraindication: Treatment Not Indicated
[2025-10-09 15:20] VITALS: BP 120/80; PULSE 78; RESP 16; TEMP 36.1; O2SAT 95
--- NOTE | 2025-10-09 15:31 | PM.OP ---
Brief Operative Note Date of Service: 10/09/25 Pre-op diagnosis: Lower GI bleed Post-op diagnosis: other (Colon polyp, Diverticulosis) Procedure: Colonoscopy to the cecum and TI with hot snare polypectomy and placement of 2 Resolution clips Surgeon: Sanford Chin MD Anesthesia: MAC Was an Cement Tile Maker used for this Procedure?: No Estimated blood loss (mL): 0 Pathology: other (A. Ascending colon polyp) Condition: stable Disposition: PACU
--- NOTE | 2025-10-09 15:33 | PM.EVENT ---
Event Note Date of Service: 10/09/25 Event Note: GI-Colonoscopy to the cecum and TI-Full note dictated Findings: 1. Significant amount of diverticulosis in the sigmoid and descending colon--no old blood or active bleeding 2. Approximately 1.5-2.0 cm polyp in the ascending colon removed in piecemeal fashion by hot snare polypectomy--both pieces recovered for pathology--2 Resolution clips placed with good deployment and good hemostasis 3. Internal hemorrhoids Imp: Resolved lower GI bleed in relation to a diverticular bleed. Colon polyp. Rec: Advance diet today. Do not use any aspirin or NSAIDs for 1 week. Discharge later today or by tomorrow if remaining stable. I discussed this in detail with the patient and her daughter, Brii. They were comfortable with this plan. Thanks Time Spent With Patient Time: Total time managing care of this patient today ____ minutes.
[2025-10-09 15:35] VITALS: BP 130/67; PULSE 71; RESP 16; TEMP 36.3; O2SAT 98
--- NOTE | 2025-10-09 15:48 | MHC.CM.PN ---
per rounds ptis not ready for dc today pt to have colonoscopy
[2025-10-09 16:00] VITALS: BP 179/76; PULSE 92; RESP 19; TEMP 36.3; O2SAT 92
[2025-10-09 16:31] LABS: Glucose, Whole Blood 144 mg/dL (60-115)
--- NOTE | 2025-10-09 17:16 | PM.DS ---
DS: Providers Provider Date of Service: 10/09/25 Date of admission: 10/06/25 11:08 Date of discharge: 10/09/25 Primary care physician: Kae Ravi MD Consults: 10/06/25 10:41 Consult to Gastroenterology Stat Consulting Provider: Sanford Chin Reason for consultation: rectal bleeding 10/06/25 11:09 Consult to Gastroenterology Routine Consulting Provider: Pioneer Clemente Bunn Reason for consultation: GI bleeding ?diverticular Has provider been notified: No DS: Diagnosis Discharge Diagnosis (1) Rectal bleeding: Status: Acute (2) DMII (diabetes mellitus, type 2): Status: Acute (3) HTN (hypertension): Status: Acute DS: Summary Hospital Course Hospital Course: 80-year-old female who presents to the emergency department with rectal bleeding. She states yesterday she started having left lower quadrant crampy abdominal pain. This was followed by episodes of red blood some were mixed with clots. She reports having approximately 10 episodes throughout the night. She denies any associated fever or chills; there has been no vomiting. In the emergency department her H/H was lower than previous at 10.5/31.3 in her stool occult blood was positive. A CT scan of the abdomen and pelvis was obtained which showed severe diverticulosis with possible mild diverticulitis. She has no known history of diverticulitis, she has never had a colonoscopy before. Her last episode of bleeding was prior to arrival in the emergency department. She denies any dizziness, shortness of breath or chest pain. She has not had any previous episodes of bleeding. She take aspirin 81 mg daily and prn ibuprofen. She was treated with IV fluid and the decision was made to admit her to the hospital for further management. Hospital course Admitted to general medical floor where she demonstrated 1 dark stool however then no further stooling. Seen in consultation by Gastroenterology. On 10/09/2025 patient underwent colonoscopy to cecum; demonstrated significant amount of diverticulosis sigmoid and descending colon no stool or active bleeding. One polyp was snared. Patient tolerated diet as point she is medically acceptable discharged home and follow up as outpatient Time Attestation Discharge Coordination Time (in mins): 35 Quality: Safe Use of Opioids Does Pt have an Active Cancer Diagnosis on the Problem List?: No Quality: Stroke Does the patient have a stroke diagnosis?: No Physical Exam Vital Signs: Vital Signs: Last Vital Signs Temp 97.3 F 10/09/25 16:00 Pulse 92 10/09/25 16:00 Resp 19 10/09/25 16:00 BP 179/76 H 10/09/25 16:00 Pulse Ox 92 10/09/25 16:00 O2 Del Method Room Air 10/09/25 16:00 BMI result Body Mass Index 38.3 Const: Other: Awake alert no acute distress Resp: Other: Clear to auscultation bilaterally no rales rhonchi or wheezes Cardio: Other: No S4; positive S1-S2; no S3 murmurs rubs or gallops GI: Other: Soft nontender nondistended normoactive bowel sounds Extrem: Other: No edema bilaterally DS: Data Data Completed and Pending Pending studies at discharge: Pending at discharge 10/09/25 14:33 Surgical [PTH] Routine Labs on day of discharge: Laboratory Results - last 24 hr 10/08/25 10/09/25 10/09/25 20:26 05:46 07:24 WBC 6.5 RBC 3.15 L Hgb 9.7 L Hct 29.4 L MCV 93.3 MCH 30.8 MCHC 33.0 RDW 13.2 Plt Count 238 MPV 10.8 Immature Gran % (Auto) 0.5 H Neut % (Auto) 59.7 Lymph % (Auto) 28.5 [place] % (Auto) 8.6 Eos % (Auto) 2.1 Baso % (Auto) 0.6 Lymph # (Auto) 1.9 [place] # (Auto) 0.6 Eos # (Auto) 0.1 Baso # (Auto) 0.0 Abs Immat Gran (auto) 0.03 Absolute Neuts (auto) 3.9 Absolute Nucleated RBC 0.000 Nucleated RBC % (auto) 0.0 Sodium 145 Potassium 3.1 L D Chloride 110 H Carbon Dioxide 24 Anion Gap 14 BUN 7 L Creatinine 0.65 Estim Creat Clear Calc 79.8 Estimated GFR > 60 POC Glucose 133 H 142 H Random Glucose Fasting Glucose 126 H Calcium 8.8 10/09/25 10/09/25 10/09/25 11:19 13:16 13:44 WBC RBC Hgb Hct MCV MCH MCHC RDW Plt Count MPV Immature Gran % (Auto) Neut % (Auto) Lymph % (Auto) [place] % (Auto) Eos % (Auto) Baso % (Auto) Lymph # (Auto) [place] # (Auto) Eos # (Auto) Baso # (Auto) Abs Immat Gran (auto) Absolute Neuts (auto) Absolute Nucleated RBC Nucleated RBC % (auto) Sodium 146 H Potassium 4.3 D Chloride 114 H Carbon Dioxide 20 L Anion Gap 16 BUN 6 L Creatinine 0.69 Estim Creat Clear Calc 75.1 Estimated GFR > 60 POC Glucose 154 H 128 H Random Glucose 142 H Fasting Glucose Calcium 9.1 10/09/25 16:28 WBC RBC Hgb Hct MCV MCH MCHC RDW Plt Count MPV Immature Gran % (Auto) Neut % (Auto) Lymph % (Auto) [place] % (Auto) Eos % (Auto) Baso % (Auto) Lymph # (Auto) [place] # (Auto) Eos # (Auto) Baso # (Auto) Abs Immat Gran (auto) Absolute Neuts (auto) Absolute Nucleated RBC Nucleated RBC % (auto) Sodium Potassium Chloride Carbon Dioxide Anion Gap BUN Creatinine Estim Creat Clear Calc Estimated GFR POC Glucose 144 H Random Glucose Fasting Glucose Calcium Discharge Plan Discharge Anticipated Discharge Date/Time: 10/09/25 17:13 Patient Disposition: Home, Self-Care Discharge Diagnosis: Diverticular bleed Referrals: Kae Ravi MD [Primary Care Provider, Internal Medicine] - 1 Week Discharge Medications: Continued (DME) OneTouch Ultra Test Strip See Rx Instructions .Route Qty: 100 3RF Rx Instructions: Test blood sugar once a day insulin glargine [Lantus Solostar U-100 Insulin] 100 unit/mL (3 mL) insulin pen 15 unit subcut BEDTIME Qty: 15 3RF olmesartan 5 mg tablet 15 mg PO DAILY Qty: 270 3RF amlodipine 5 mg tablet 5 mg PO DAILY Qty: 90 3RF metformin 1,000 mg tablet 1,000 mg PO BID Qty: 200 3RF Discharge Orders: Discharge Order (Routine); Ordered 10/09/25 Ordered By: Markel Drew Diet: Advance to usual diet Activity on Discharge: As tolerated Stand Alone Forms: Patient Portal Discharge page Print Language: Urdu Care Plan Goals: Resume all meds as taken prior to hospitalization Health Concerns: Avoid nonsteroidals for 2 weeks Plan of Treatment: Follow up with your PCP as scheduled Assessment: See discharge summary
--- NOTE | 2025-10-10 00:55 | OP_ITS ---
DATE OF SERVICE: 10/09/2025 SURGEON: Sanford Chin MD INDICATIONS: The patient presents for evaluation of lower GI bleeding. Full consent has been obtained from her for this, including risks of bleeding and perforation. PREOPERATIVE DIAGNOSIS: Lower GI bleeding. POSTOPERATIVE DIAGNOSIS: PROCEDURE PERFORMED: ESTIMATED BLOOD LOSS: COMPLICATIONS: ANESTHESIA: Medication used, monitored anesthesia care. ASSISTANTS: SPECIMENS: POSTOPERATIVE DIAGNOSES: Lower GI bleeding, ascending colon polyp, diverticulosis, and internal hemorrhoids. PROCEDURES PERFORMED: Colonoscopy to the cecum and terminal ileum with hot snare polypectomy and placement of 2 resolution clips. DESCRIPTION OF PROCEDURE: The patient was placed in the left lateral decubitus position. The digital rectal exam revealed no abnormalities. The Olympus video pediatric colonoscope was entered into the rectum and advanced easily to the cecum. Once in the cecum, I did identify normal-appearing cecal pouch with appendiceal orifice and a normal-appearing ileocecal valve. The terminal ileum was cannulated and appeared normal. Scope was withdrawn back in the colon. The entire cecum and ileocecal valve appeared normal. The scope was slowly withdrawn assessing all mucosal surfaces carefully. Preparation was excellent. In the area of the proximal to mid ascending colon was an approximately 1.5 to 2 cm polypoid lesion. This was removed in piecemeal fashion with the hot snare polypectomy. One piece was recovered by suction and the other piece was recovered by capturing it in the retrieval net and bringing it out of the patient with the scope. The scope was advanced back to the polypectomy site. This area appeared clean, without any sign of residual polyp nor bleeding. However, I did opt to place 2 resolution clips onto the polypectomy site with good deployment and good hemostasis. I did not visualize any other polyps, colitis, nor angiodysplasia. There was a moderate amount of diverticulosis in the sigmoid and descending colon. In the rectum, the scope was retroflexed visualizing small internal hemorrhoids, but no other pathology. The rectal mucosa appeared normal. Scope was straightened. Of note, I did not visualize any sign of bleeding, old blood, or melena in the GI tract. IMPRESSION: Given the findings on today's exam and her clinical history, this still speaks for that of a diverticular bleed that resolved on its own. At this point, she has been very stable, and I think, she can have her diet advanced and be discharged either later today or by tomorrow. She was advised not to use any aspirin nor NSAIDs for 1 week. Given her age and these findings, I do not think she would need any further screening colonoscopies going forward. Hopefully, she would not have any more bleeding from the diverticular disease. This has been discussed with the patient and her daughter, Brii, in detail. MD GASTON Rae/BRITTA / [id number]
== END 2025-10-09 17:51 | disposition home or self-care (01) ==
LOC: HO.ED 11:00 → HO.EDOVER 11:12 → HO.S3 16:10
PROVIDERS: Family Medicine; Internal Medicine; Admitting Provider Physician Assistant Medical; Emergency Provider Emergency Medicine; PCP Internal Medicine; Visit Provider Hospitalist
PROC: 0DJD8ZZ Inspection of Lower Intestinal Tract, Via Natural or Artificial Opening Endoscopic (ICD-10-PCS; CPT 45378; principal; 2025-10-09 14:30)
DX: K57.31 Diverticulosis of large intestine without perforation or abscess with bleeding (principal); K63.5 Polyp of colon; K62.5 Hemorrhage of anus and rectum; E11.9 Type 2 diabetes mellitus without complications; I10 Essential (primary) hypertension; R10.32 Left lower quadrant pain; E78.5 Hyperlipidemia, unspecified; Z23 Encounter for immunization; Z79.899 Other long term (current) drug therapy
CPT/HCPCS: 45385; 36415; 74177; 80048; 80053; 82272; 82947; 85014; 85018; 85025; 85027; 85610; 85730; 86850; 86900; 86901; 88305; 88342; 90471; 90656; 93005; 96361; 96374; 99221; 99285; J2003; J2704; J3480; J7120; Q9967

== ENCOUNTER → 2025-10-06 07:26 | Outpatient (BNV) | payer MEDICARE, SELFPAY | PROVIDERS: Emergency Provider Emergency Medicine; PCP Internal Medicine; Visit Provider Radiology Diagnostic Radiology | DX: K62.5 Hemorrhage of anus and rectum (principal); R10.9 Unspecified abdominal pain | CPT/HCPCS: 74177 ==

== ENCOUNTER → 2025-10-06 07:31 | Outpatient (BNV) | payer MEDICARE, SELFPAY | PROVIDERS: Admitting Provider Physician Assistant Medical; Emergency Provider Emergency Medicine; PCP Internal Medicine; Visit Provider Internal Medicine Cardiovascular Disease | DX: R94.31 Abnormal electrocardiogram [ECG] [EKG] (principal); R07.9 Chest pain, unspecified | CPT/HCPCS: 93010 ==

== ENCOUNTER → 2025-10-06 11:08 | Outpatient (BNV) | payer MEDICARE, SELFPAY | PROVIDERS: Admitting Provider Physician Assistant Medical; Emergency Provider Emergency Medicine; PCP Internal Medicine; Visit Provider Physician Assistant Medical | DX: K62.5 Hemorrhage of anus and rectum (principal); E11.9 Type 2 diabetes mellitus without complications; I10 Essential (primary) hypertension | CPT/HCPCS: 99223; 99233; 99239; 99499 ==